=== PATIENT | female | born 1955 | race Caucasian/White ===

== ENCOUNTER → 2016-12-21 | Outpatient (CLI) | payer OTHER ==
[~2016-12-21] MED LIST: DOBUTamine DRIP for NUC MED 500 MG in DEXTROSE/WATER 1 250ML.BAG IV ONE
--- NOTE | 2016-12-21 14:42 | ECHOS ---
STRESS ECHOCARDIOGRAM DATE OF SERVICE: December 21, 2016. INDICATIONS: Fatigue. MEDICATIONS:: Metformin, Glyxambi, Lipitor, losartan, Celexa, omeprazole BASELINE HEART RATE: 69 BASELINE BLOOD PRESSURE: 200/83 MAXIMUM HEART RATE: 136 MAXIMUM BLOOD PRESSURE: 191/62 85% MPHR: 133 100% MPHR: 157 METS: MAXIMUM STAGE REACHED: 3 TOTAL EXERCISE TIME: 7:45 STRESS DATA: Physical examination showed a heart rate of 69, blood pressure is 200/83 mmHg. Baseline EKG shows sinus mechanism. Dobutamine infusion at dose of 10 mcg/minutes was initiated and decreased to 30 mcg per kg per minute per protocol. Max heart rate was 136, which is about 86% of maximum predicted heart rate. Blood pressure was 191/62 mmHg. Clinically, the patient did not have any symptoms of chest pain or discomfort. The EKG showed about 0.[address]-segment changes. ECHOCARDIOGRAM IMAGES: Echocardiogram images from parasternal long axis view, parasternal short-axis view, apical 4 chamber view, apical two-chamber view were obtained as a baseline images, at low dose dobutamine infusion at peak heart rate, as well as on recovery. The echocardiogram images showed overall good augmentation in the left ventricular systolic function without any evidence of wall motion abnormalities consistent with ischemia. CONCLUSION: 1. Mild EKG changes response to dobutamine. 2. Normal echocardiogram images in response to dobutamine. MMODL / IJN: [id number] /
== END ==
LOC: RADNMMAIN 09:46
PROVIDERS: ATTEND Family Medicine
DX: R53.83 Other fatigue (principal)
CPT/HCPCS: 93017; 93350

== ENCOUNTER → 2017-06-04 | Outpatient (CLI) | payer BC ==
--- NOTE | 2017-06-06 09:47 | MM ---
Reason for exam: screening (asymptomatic). Last mammogram was performed 2 years and 2 months ago. History: Patient is postmenopausal. Physical Findings: A clinical breast exam by your physician is recommended on an annual basis and results should be correlated with mammographic findings. MG Screening Mammo w CAD Bilateral CC and MLO view(s) were taken. Prior study comparison: April 19, 2015, bilateral MG 3d screening mammo w/cad. There are scattered fibroglandular densities. No significant changes when compared with prior studies. ASSESSMENT: Negative, BI-RAD 1 RECOMMENDATION: Routine screening mammogram of both breasts in 1 year.
== END | disposition home or self-care (01) ==
LOC: RADMAMWWP 09:47
PROVIDERS: ATTEND Family Medicine
DX: Z12.31 Encounter for screening mammogram for malignant neoplasm of breast (principal)
CPT/HCPCS: 77067

== ENCOUNTER → 2018-06-05 | Outpatient (CLI) | payer MEDICARE ==
--- NOTE | 2018-06-05 11:54 | MM ---
Reason for exam: screening (asymptomatic). Last mammogram was performed 1 year ago. History: Patient is postmenopausal. Physical Findings: A clinical breast exam by your physician is recommended on an annual basis and results should be correlated with mammographic findings. MG 3D Screening Mammo W/Cad Bilateral CC and MLO view(s) were taken. Prior study comparison: June 04, 2017, bilateral MG screening mammo w CAD. April 19, 2015, bilateral MG 3d screening mammo w/cad. There are scattered fibroglandular densities. There are benign appearing linear round calcifications bilaterally. There is no discrete abnormality. ASSESSMENT: Benign, BI-RAD 2 RECOMMENDATION: Routine screening mammogram of both breasts in 1 year.
== END | disposition home or self-care (01) ==
LOC: RADMAMWWP 07:57
PROVIDERS: ATTEND Family Medicine
DX: Z12.31 Encounter for screening mammogram for malignant neoplasm of breast (principal)
CPT/HCPCS: 77063; 77067

== ENCOUNTER → 2019-10-07 | Outpatient (CLI) | payer MEDICARE ==
--- NOTE | 2019-10-12 11:10 | MM ---
Reason for exam: screening (asymptomatic). Last mammogram was performed 1 year and 4 months ago. History: Patient is postmenopausal. Took hormonal contraceptives for 1 year. Physical Findings: A clinical breast exam by your physician is recommended on an annual basis and results should be correlated with mammographic findings. MG 3D Screening Mammo W/Cad Bilateral CC and MLO view(s) were taken. Prior study comparison: June 05, 2018, bilateral MG 3d screening mammo w/cad. June 04, 2017, bilateral MG screening mammo w CAD. There are scattered fibroglandular densities. There is chronic nodularity in the right breast. No significant changes when compared with prior studies. ASSESSMENT: Benign, BI-RAD 2 RECOMMENDATION: Routine screening mammogram of both breasts in 1 year.
== END | disposition home or self-care (01) ==
LOC: RADMAMWWP 07:50
PROVIDERS: ATTEND Family Medicine
DX: Z12.31 Encounter for screening mammogram for malignant neoplasm of breast (principal)
CPT/HCPCS: 77063; 77067

== ENCOUNTER → 2021-09-25 | Outpatient (CLI) | payer MEDICARE ==
--- NOTE | 2021-09-26 08:39 | MM ---
Reason for Exam: Screening (asymptomatic). Last mammogram was performed 1 year(s) and 11 month(s) ago. Patient History: Menarche at age 11. First Full-Term at age 16. Postmenopausal. Patient used Hormonal Contraceptives for 1 year. Risk Values: Alma 5 year model risk: 1.2%. NCI Lifetime model risk: 4.0%. Prior Study Comparison: 06/04/2017 Bilateral Screening Mammogram, [facility]. 06/05/2018 Bilateral Screening Mammogram, [facility]. 10/07/2019 Bilateral Screening Mammogram, [facility]. Tissue Density: There are scattered fibroglandular densities. Findings: Analyzed By CAD. There is no suspicious group of microcalcifications or new suspicious mass in either breast. Chronic nodularity in the right breast. No significant change from prior examination. Overall Assessment: Benign, BI-RAD 2 Management: Screening Mammogram of both breasts in 1 year. A clinical breast exam by your physician is recommended on an annual basis and results should be correlated with mammographic findings. Electronically signed and approved by: Catalino Martin D.O.
== END | disposition home or self-care (01) ==
LOC: RADMAMWWP 16:12
PROVIDERS: ATTEND Family Medicine
DX: Z12.31 Encounter for screening mammogram for malignant neoplasm of breast (principal); Z78.0 Asymptomatic menopausal state
CPT/HCPCS: 77063; 77067

== ENCOUNTER → 2021-10-18 | Outpatient (CLI) | payer MEDICARE ==
--- NOTE | 2021-10-18 18:48 | US ---
EXAMINATION TYPE: US carotid duplex BILAT DATE OF EXAM: 10/18/2021 COMPARISON: NONE CLINICAL HISTORY: 66-year-old female I25.10 atherosclerotic heart disease. HTN controlled with meds. TECHNIQUE: Carotid duplex ultrasound examination. Indirect Doppler criteria was utilized. FINDINGS: EXAM MEASUREMENTS: RIGHT: Peak Systolic Velocity (PSV) cm/sec ----- Right CCA: 64.4 ----- Right ICA: 104.0 ----- Right ECA: 93.0 ICA/CCA ratio: 1.6 RIGHT: End Diastole cm/sec ----- Right CCA: 12.8 ----- Right ICA: 25.9 ----- Right ECA: 0.0 LEFT: Peak Systolic Velocity (PSV) cm/sec ----- Left CCA: 73.8 ----- Left ICA: 120.5 ----- Left ECA: 113.4 ICA/CCA ratio: 1.6 LEFT: End Diastole cm/sec ----- Left CCA: 13.6 ----- Left ICA: 34.9 ----- Left ECA: 0.0 VERTEBRALS (direction of flow): Right Vertebral: Antegrade Left Vertebral: Antegrade Rhythm: Normal STAFF PHARMACIST HOSPITAL NOTES: No elevated velocities or significant stenosis. Small amount of plaque in left bu lb. IMPRESSION: No hemodynamically significant internal carotid artery stenosis on either side. Criteria for Assigning % of Stenosis / Diameter reduction (Estimation based on the indirect measurements of the internal carotid artery velocities (ICA PSV). 1. Normal (no stenosis)=ICA PSV < 125 cm/s: ratio < 2.0: ICA EDV<40 cm/s. 2. Less than 50% stenosis=ICA PSV < 125 cm/s: ratio < 2.0: ICA EDV<40 cm/s. 3. 50 to 69% stenosis=ICA PSV of 125 to 230 cm/s: ration 2.0 ? 4.0: ICA EDV 40-100 cm/s. 4. Greater than 70% stenosis to near occlusion= ICA PSV > 230 cm/s: ratio > 4.0: ICA EDV > 100 cm/s. 5. Near occlusion= ICA PSV velocities may be low or undetectable: variable ratio and ICA EDV. 6. Total occlusion=unable to detect flow.
== END | disposition home or self-care (01) ==
LOC: RADUSWWP 14:16
PROVIDERS: ATTEND Family Medicine
DX: I25.10 Atherosclerotic heart disease of native coronary artery without angina pectoris (principal); I10 Essential (primary) hypertension
CPT/HCPCS: 93880

== ENCOUNTER 2022-03-20 09:17 | Day surgery (SDC) | payer MEDICARE ==
[~2022-03-20 09:17] MED LIST changes: -DOBUTamine DRIP for NUC MED 500 MG in DEXTROSE/WATER 1 250ML.BAG IV ONE; +LACTATED RINGERS 1,000 ML IV SCH
[2022-03-20 09:45] VITALS: RESP 16; TEMP 97.3
[2022-03-20 09:57] LABS: Glucose,Whole Blood 158 mg/dL (70-110)
[2022-03-20] MEDS ORDERED: LIDOCAINE 1% (10MG/ML) FOR IV START INTRADERMA ONE (09:58)
[2022-03-20] MEDS ORDERED: PROPOFOL 10 MG/ML 20 ML VIAL IV ONE (10:32)
--- NOTE | 2022-03-20 10:46 | P.PCN ---
Date of Procedure: 03/20/22 Procedure(s) Performed: BRIEF HISTORY: Patient is a 67-year-old pleasant male scheduled for an elective colonoscopy as a part of evaluation of possible cologuard/screening for colon cancer PROCEDURE PERFORMED: Colonoscopy with biopsy. PREOPERATIVE DIAGNOSIS: Screening for colon cancer/positive cologuard. IV sedation per Anesthesia. PROCEDURE: After informed consent was obtained, the patient, was brought into the endoscopy unit. IV sedation was administered by Anesthesia under continuous monitoring. Digital rectal examination was normal. Initially the Olympus CF-160 flexible video colonoscope was then inserted in the rectum, gradually advanced into the cecum without any difficulty. Careful examination was performed as the scope was gradually being withdrawn. Ileocecal valve and the appendiceal orifice were visualized and appeared normal. Prep was excellent. Mucosa of the cecum, a normal. Ascending colon there was a 5 mm polyp that was removed by cold biopsy. Rest of the ascending colon, transverse colon, descending colon, sigmoid colon, and rectum appeared normal. Scattered sigmoid diverticulosis. Retroflexion was performed in the rectum and no lesions were seen. The patient tolerated the procedure well. IMPRESSION: 5 mm sessile ascending colon polyp status post cold biopsy Scattered sigmoid diverticulosis RECOMMENDATIONS: Findings of this examination were discussed with the patient as well as a family.. He was advised to follow with the biopsy results. If the biopsy with adenoma she can have a repeat colonoscopy in 5 years.
[2022-03-20 11:14] VITALS: BP 136/72; PULSE 57
== END 2022-03-20 11:34 | disposition home or self-care (01) ==
LOC: ORWHC2ENDO 09:17
PROVIDERS: ATTEND Internal Medicine Gastroenterology
DX: D12.2 Benign neoplasm of ascending colon (principal); K57.30 Diverticulosis of large intestine without perforation or abscess without bleeding; I10 Essential (primary) hypertension; E78.5 Hyperlipidemia, unspecified; E11.9 Type 2 diabetes mellitus without complications; Z79.84 Long term (current) use of oral hypoglycemic drugs; F32.A Depression, unspecified; Z79.02 Long term (current) use of antithrombotics/antiplatelets; Z79.891 Long term (current) use of opiate analgesic; Z79.899 Other long term (current) drug therapy
CPT/HCPCS: 45380; J2704; 88305

== ENCOUNTER → 2024-01-13 | Outpatient (CLI) | payer MEDICARE ==
--- NOTE | 2024-01-13 10:18 | CT ---
EXAMINATION TYPE: CT abdomen pelvis wo con CT DLP: 1018 mGycm, Automated exposure control for dose reduction was used. DATE OF EXAM: 01/13/2024 10:06 AM COMPARISON: None CLINICAL INDICATION:Female, 68 years old with history of R31.9 hematuria; hematuria TECHNIQUE: Standard CT of the abdomen and pelvis without IV or oral contrast. Lack of IV or oral co ntrast limits evaluation of solid and hollow organ viscera. Coronal and sagittal reformats were perfo rmed. FINDINGS: LOWER CHEST: Right lower lobe 4 mm pulmonary nodule (series 4, image 8). Coronary artery calcificatio ns. Elevation of the right hemidiaphragm. ABDOMEN LIVER: Unremarkable noncontrast appearance GALLBLADDER AND BILE DUCTS: Cholelithiasis with gallbladder wall calcification. No biliary ductal dil atation. PANCREAS: Unremarkable noncontrast appearance SPLEEN: Unremarkable noncontrast appearance ADRENAL GLANDS: Unremarkable noncontrast appearance of the right adrenal gland. Left adrenal gland 1. 2 cm hypodense nodule with Hounsfield unit of -11 consistent with a lipid rich adenoma. KIDNEYS AND URETERS: No evidence of hydronephrosis or renal calculus. No definitive ureteral calcific ation. No perinephric fat stranding. PELVIS BLADDER: Incompletely distended but grossly unremarkable. REPRODUCTIVE: Unremarkable noncontrast appearance ABDOMEN & PELVIS STOMACH AND BOWEL: Stomach and duodenum are unremarkable. No focal wall thickening or stranding infla mmatory changes. The appendix is within normal limits. No evidence of bowel obstruction. PERITONEUM: No evidence of pneumoperitoneum or free fluid. VASCULATURE: No evidence of aortic aneurysm. Pelvic phleboliths. MUSCULOSKELETAL: No acute osseous abnormalities. Dextrocurvature of the lumbar spine. Moderate multil evel degenerative disc disease. LYMPH NODES: No gross evidence for lymphadenopathy. SOFT TISSUE/ABDOMINAL WALL: Tiny fat filled umbilical hernia. IMPRESSION: 1. No evidence for obstructive uropathy or acute abdominal/pelvic process within the limitations of a noncontrast exam. 2. Cholelithiasis with gallbladder wall calcification consistent with porcelain gallbladder. Consider surgical consultation. 3. Left adrenal 1.2 cm lipid rich adenoma. 4. Right lower lobe 4 mm pulmonary nodule. In a low-risk patient, no follow-up is recommended. In a h igh-risk patient consider optional CT chest in 12 months. [facility], , 01/13/2024 10:15 AM
--- NOTE | 2024-01-19 15:56 | MM ---
Reason for Exam: Screening (asymptomatic). Last mammogram was performed 1 year(s) and 2 month(s) ago. Patient History: Menarche at age 11. First Full-Term at age 16. Postmenopausal. Patient used Hormonal Contraceptives for 1 year. Risk Values: Alma 5 year model risk: 1.2%. NCI Lifetime model risk: 3.7%. Prior Study Comparison: 10/07/2019 Bilateral Screening Mammogram, [facility]. 09/25/2021 Bilateral MG 3D screening mammo w/cad, [facility]. 11/27/2022 Bilateral MG 3D screening mammo w/cad, [facility]. Tissue Density: There are scattered areas of fibroglandular density. Findings: Analyzed By CAD. The pattern is symmetrical. No significant interval change. Benign calcifications are scattered bilaterally there is a nodular density in the subareolar right breast which may be changed from comparison. Additional evaluation recommended. Left breast:No suspicious groups of microcalcifications, spiculated or lobular masses, architectural distortion or other secondary signs of malignancy are mammographically apparent. Overall Assessment: Incomplete: need additional imaging evaluation, BI-RAD 0 Management: Diagnostic Mammogram of the right breast. Diagnostic Breast Ultrasound of the right breast. A negative mammogram report should not preclude additional follow up of suspicious palpable abnormalities. Patient should continue monthly self breast exam. A clinical breast exam by your physician is recommended on an annual basis and results should be correlated with mammographic findings. Note on Alma scores and lifetime risk: 1. A Alma score greater than 3% is considered moderate risk. If this is the case, consider specialist referral to assess eligibility for a risk reducing agent. 2. If overall lifetime risk for the development of breast cancer is 20% or higher, the patient may qualify for future screening with alternating mammogram and breast MRI. [facility], , 01/19/2024 3:53 PM. Electronically signed and approved by: Darwin Briceño D.O. Radiologis
== END | disposition home or self-care (01) ==
LOC: RADCTMAIN 09:50
PROVIDERS: ATTEND Family Medicine
DX: Z12.31 Encounter for screening mammogram for malignant neoplasm of breast (principal); R92.323 Mammographic fibroglandular density, bilateral breasts; R31.9 Hematuria, unspecified; K80.20 Calculus of gallbladder without cholecystitis without obstruction; E27.8 Other specified disorders of adrenal gland; R91.1 Solitary pulmonary nodule; Z78.0 Asymptomatic menopausal state
CPT/HCPCS: 74176; 77063; 77067

== ENCOUNTER → 2024-01-27 | Outpatient (CLI) | payer MEDICARE ==
--- NOTE | 2024-01-27 11:04 | MM ---
Reason for Exam: Additional evaluation requested from abnormal screening. Last screening mammogram was performed less than 1 month ago. Patient History: Menarche at age 11. First Full-Term at age 16. Postmenopausal. Patient used Hormonal Contraceptives for 1 year. Risk Values: Alma 5 year model risk: 1.2%. NCI Lifetime model risk: 3.7%. Prior Study Comparison: 06/04/2017 Bilateral Screening Mammogram, [facility]. 06/05/2018 Bilateral Screening Mammogram, [facility]. 10/07/2019 Bilateral Screening Mammogram, [facility]. 09/25/2021 Bilateral MG 3D screening mammo w/cad, [facility]. 11/27/2022 Bilateral MG 3D screening mammo w/cad, [facility]. 01/13/2024 Bilateral MG 3D screening mammo w/cad, [facility]. Tissue Density: Right: There are scattered areas of fibroglandular density. Findings: Analyzed By CAD. Tiny 3 mm circumscribed low density nodularity appears to have been present on 2021 exam. A tiny benign cyst or other benign etiology is suggested. Otherwise, no discrete abnormality. Overall Assessment: Benign, BI-RAD 2 Management: Screening Mammogram of both breasts in 1 year. Results were given to the patient verbally at the time of exam. Patient should continue monthly self-breast exams. A clinical breast exam by your physician is recommended on an annual basis. This exam should not preclude additional follow-up of suspicious palpable abnormalities. Note on Alma scores and lifetime risk: 1. A Alma score greater than 3% is considered moderate risk. If this is the case, consider specialist referral to assess eligibility for a risk reducing agent. 2. If overall lifetime risk for the development of breast cancer is 20% or higher, the patient may qualify for future screening with alternating mammogram and breast MRI. [facility], , 01/27/2024 11:02 AM. Electronically signed and approved by: Jennifer Charlton M.D. Radiologist
== END | disposition home or self-care (01) ==
LOC: RADMAMWWP 10:07
PROVIDERS: ATTEND Family Medicine
DX: R92.8 Other abnormal and inconclusive findings on diagnostic imaging of breast (principal); Z78.0 Asymptomatic menopausal state; R92.321 Mammographic fibroglandular density, right breast
CPT/HCPCS: 77065; G0279; 77061

== ENCOUNTER 2024-04-27 17:01 | Inpatient (IN) | payer MEDICARE ==
[2024-04-27 17:49] LABS: Basophils % (A) 0 %; Eosinophils # (A) 0.1 k/uL (0-0.7); Eosinophils % (A) 1 %; HCT 41.7 % (34.0-46.0); HGB 13.3 gm/dL (11.4-16.0); Lymphocytes # (A) 1.5 k/uL (1.0-4.8); Lymphocytes % (A) 13 %; MCH 29.4 pg (25.0-35.0); MCHC 31.9 g/dL (31.0-37.0); Mean Platelet Volume 7.3; Monocytes # (A) 0.7 k/uL (0-1.0); Monocytes % (A) 6 %; Neutrophils # (A) 9.5 k/uL (1.3-7.7); Neutrophils % (A) 80 %; Platelet Count 374 k/uL (150-450); RBC 4.54 m/uL (3.80-5.40); RDW 14.9 % (11.5-15.5)
--- NOTE | 2024-04-27 17:54 | ED ---
Abdominal Pain HPI - General Source: patient, family, RN notes reviewed Mode of arrival: wheelchair Limitations: no limitations - History of Present Illness MD Complaint: abdominal pain <Alfred Diego - Last Filed: 04/27/24 17:54> <Barbie Triplett - Last Filed: 04/29/24 13:09> - General Chief Complaint: Abdominal Pain Stated Complaint: nausea, abd cramps, referral Time Seen by Provider: 04/27/24 17:16 - History of Present Illness Initial Comments: Quick note: This is a 69-year-old female with history of DM presenting with family presenting with nausea/vomiting/diarrhea x 2 months. Family states patient was referred by Dr. Rodriguez for admission due to duration and progression of symptoms. Endorses having a cholecystectomy just prior to start of current symptoms. Endorses associated postprandial vomiting, lower abdominal pain, weakness with decreased appetite. (Alfred Diego) 69-year-old female with past medical history of diabetes, hypertension, hyperlipidemia who presents to the emergency department with nausea, vomiting and diarrhea. States that this has been going on persistently for a week. Patient has had some level of symptoms since February when she had her gallbladder taken out. Today she saw Dr. Rodriguez. She recognized that the patient was significantly dehydrated and needed to come to the hospital. Patient states that anything she tries to eat it comes right back up. She also has 6 episodes of loose watery stools per day. She does report to outpatient evaluation of her symptoms without definite diagnosis of the process. She denies any fevers. Does admit to lower abdominal cramping. No changes in her urination. No other alleviating, precipitating modifying factors (Barbie Triplett) - Related Data Home Medications Medication Instructions Recorded Confirmed Famotidine [Pepcid] 40 mg PO DAILY 04/28/24 04/28/24 Ondansetron [Zofran] 4 mg PO BID 04/28/24 04/28/24 Pioglitazone [Actos] 30 mg PO DAILY 04/28/24 04/28/24 Promethazine HCl 12.5 mg PO QID PRN 04/28/24 04/28/24 Rosuvastatin Calcium [Crestor] 5 mg PO DAILY 04/28/24 04/28/24 hydroCHLOROthiazide [Hydrodiuril] 25 mg PO DAILY 04/28/24 04/28/24 sitaGLIPtin PHOS/metFORMIN HCL 1 tab PO BID 04/28/24 04/28/24 [Janumet 50-1,000 mg Tablet] Allergies Allergy/AdvReac Type Severity Reaction Status Date / Time No Known Allergies Allergy Verified 04/28/24 09:01 Review of Systems ROS Other: All systems not noted in ROS Statement are negative. <Alfred Diego - Last Filed: 04/27/24 17:54> ROS Other: All systems not noted in ROS Statement are negative. <IoanaBarbie Bee - Last Filed: 04/29/24 13:09> ROS Statement: Those systems with pertinent positive or pertinent negative responses have been documented in the HPI. Past Medical History Past Medical History: Diabetes Mellitus, Hyperlipidemia, Hypertension History of Any Multi-Drug Resistant Organisms: None Reported Past Surgical History: Cholecystectomy, Tonsillectomy Additional Past Surgical History / Comment(s): d & c Past Anesthesia/Blood Transfusion Reactions: No Reported Reaction Past Psychological History: Depression Smoking Status: Never smoker <Alfred Diego - Last Filed: 04/27/24 17:54> General Exam Limitations: no limitations <Alfred Diego - Last Filed: 04/27/24 17:54> General appearance: alert, in no apparent distress Head exam: Present: atraumatic, normocephalic, normal inspection Eye exam: Present: normal appearance, PERRL, EOMI. Absent: scleral icterus, conjunctival injection, periorbital swelling ENT exam: Present: normal exam, mucous membranes moist Neck exam: Present: normal inspection. Absent: tenderness, meningismus, lymphad enopathy Respiratory exam: Present: normal lung sounds bilaterally. Absent: respiratory distress, wheezes, rales, rhonchi, stridor Cardiovascular Exam: Present: regular rate, normal rhythm, normal heart sounds. Absent: systolic murmur, diastolic murmur, rubs, gallop, clicks GI/Abdominal exam: Present: soft, tenderness (mild lower abd tenderness), normal bowel sounds. Absent: distended, guarding, rebound, rigid Extremities exam: Present: normal inspection, full ROM, normal capillary refill. Absent: tenderness, pedal edema, joint swelling, calf tenderness Back exam: Present: normal inspection Neurological exam: Present: alert, oriented X3, CN II-XII intact Psychiatric exam: Present: normal affect, normal mood Skin exam: Present: warm, dry, intact, normal color. Absent: rash <Barbie Triplett - Last Filed: 04/29/24 13:09> - General Exam Comments Initial Comments: Visual Physical Exam Vital signs reviewed General: Well-appearing, nontoxic, no acute distress. Head: Normocephalic, atraumatic Eyes: PERRLA, EOMI ENT: Airway patent Chest: Nonlabored breathing Skin: No visual rash, normal skin tone Neuro: Alert and oriented 3 Musculoskeletal: No gross abnormalities (Alfred Diego) Course Vital Signs 04/27/24 04/27/24 04/27/24 17:18 20:34 21:50 Temperature 97.8 F Pulse Rate 85 90 90 Respiratory 20 18 20 Rate Blood Pressure 142/79 146/76 133/68 O2 Sat by Pulse 99 98 97 Oximetry 04/27/24 04/28/24 04/28/24 23:41 01:00 05:26 Temperature Pulse Rate 84 82 68 Respiratory 18 18 18 Rate Blood Pressure 125/67 143/57 150/68 O2 Sat by Pulse 97 96 98 Oximetry 04/28/24 04/28/24 04/28/24 09:32 15:57 17:36 Temperature Pulse Rate 65 70 70 Respiratory 14 18 18 Rate Blood Pressure 150/74 160/78 142/58 O2 Sat by Pulse 98 100 100 Oximetry Medical Decision Making - Lab Data Result diagrams: 04/27/24 17:22 <Alfred Diego - Last Filed: 04/27/24 17:54> - Lab Data Result diagrams: 04/29/24 03:45 04/29/24 03:45 <Barbie Triplett - Last Filed: 04/29/24 13:09> - Medical Decision Making I completed the quick note portion of this chart signed ROSETTA Tate (Alfred Diego) Was pt. sent in by a medical professional or institution ([facility], HOT IRON WORKER, urgent care, hospital, or [facility]...) When possible be specific @ -Patient was sent in by Dr. Rodriguez Did you speak to anyone other than the patient for history (EMS, parent, family, police, friend...)? What history was obtained from this source @ -Spoke with the patient's daughters for history Did you review nursing and triage notes (agree or disagree)? Why? @ -I reviewed and agree with nursing and triage notes Were old charts reviewed (outside hosp., previous admission, EMS record, old EKG, old radiological studies, urgent care reports/EKG's, [facility] records)? Report findings @ -No old charts were reviewed Differential Diagnosis (chest pain, altered mental status, abdominal pain women, abdominal pain men, vaginal bleeding, weakness, fever, dyspnea, syncope, headache, dizziness, GI bleed, back pain, seizure, CVA, palpatations, mental health, musculoskeletal)? @ -Differential Abdominal Pain Women: Appendicitis, Cholecystitis, diverticulosis, ischemic bowel, pancreatitis, hepatitis, UTI, gastroenteritis, AAA, incarcerated hernia, bowel obstruction, constipation, inflammatory bowel, hepatitis, peptic ulcer disease, splenic infarction, perforated viscus, vulvitis, ovarian torsion, PID, kidney stone, placenta abruption, this is not meant to be an all-inclusive list EKG interpreted by me (3pts min.). @ -Yes and demonstrates sinus rhythm with a rate of 82. QRS 82. QTc of 370. Mild ST depression lead II X-rays interpreted by me (1pt min.). @ -None done CT interpreted by me (1pt min.). @ -Yes which demonstrates gastroenteritis U/S interpreted by me (1pt. min.). @ -None done What testing was considered but not performed or refused? (CT, X-rays, U/S, la bs)? Why? @ -None What meds were considered but not given or refused? Why? @ -None Did you discuss the management of the patient with other professionals (professionals i.e. , PA, HOT IRON WORKER, lab, RT, psych nurse, social service agency director, oven press tender, teacher, licensed mortgage loan officer, casework manager)? Give summary @ -Spoke with Dr. Rayo for admission Was smoking cessation discussed for >3mins.? @ -No Was critical care preformed (if so, how long)? @ -No Were there social determinants of health that impacted care today? How? (Homelessness, low income, unemployed, alcoholism, drug addiction, transportation, low edu. Level, literacy, decrease access to med. care, halfway, rehab)? @ -No Was there de-escalation of care discussed even if they declined (Discuss DNR or withdrawal of care, Hospice)? DNR status @ -No What co-morbidities impacted this encounter? (DM, HTN, Smoking, COPD, CAD, Cancer, CVA, ARF, Chemo, Hep., AIDS, mental health diagnosis, sleep apnea, morbid obesity)? @ -Porcelain gallbladder history Was patient admitted / discharged? Hospital course, mention meds given and route, prescriptions, significant lab abnormalities, going to OR and other pertinent info. @ -Upon arrival patient seen and evaluated in bed 24. Thorough history and physical exam was performed. IV access is established. Patient is initiated on fluids, Pepcid and Zofran. Laboratory studies are conducted. CT is performed as patient has not had 1 postop in her records. I did discuss results with the patient. Due to her significant dehydration and hypokalemia I did recommend admission for which the patient was agreeable. Spoke with Dr. Rayo for the admission Undiagnosed new problem with uncertain prognosis? @ -No Drug Therapy requiring intensive monitoring for toxicity (Heparin, Nitro, Insulin, Cardizem)? @ -No Were any procedures done? @ -No Diagnosis/symptom? @ -Acute exacerbation of chronic nausea, vomiting, acute abdominal pain, status post gallbladder removal, acute hypokalemia, acute hypomagnesemia Acute, or Chronic, or Acute on Chronic? @ -Acute Uncomplicated (without systemic symptoms) or Complicated (systemic symptoms)? @ -Complicated Side effects of treatment? @ -No Exacerbation, Progression, or Severe Exacerbation? @ -No Poses a threat to life or bodily function? How? (Chest pain, [place], [place], pneumonia, PE, COPD, DKA, ARF, appy, cholecystitis, CVA, Diverticulitis, Homicidal, Suicidal, threat to staff... and all critical care pts) @ -No (Barbie Triplett) - Lab Data Lab Results 04/27/24 04/27/24 04/27/24 Range/Units 17:22 17:22 17:22 WBC 12.0 H (3.8-10.6) k/uL RBC 4.54 (3.80-5.40) m/uL Hgb 13.3 (11.4-16.0) gm/dL Hct 41.7 (34.0-46.0) % MCV 92.0 (80.0-100.0) fL MCH 29.4 (25.0-35.0) pg MCHC 31.9 (31.0-37.0) g/dL RDW 14.9 (11.5-15.5) % Plt Count 374 (150-450) k/uL MPV 7.3 Neutrophils % 80 % Lymphocytes % 13 % Monocytes % 6 % Eosinophils % 1 % Basophils % 0 % Neutrophils # 9.5 H (1.3-7.7) k/uL Lymphocytes # 1.5 (1.0-4.8) k/uL Monocytes # 0.7 (0-1.0) k/uL Eosinophils # 0.1 (0-0.7) k/uL Basophils # 0.0 (0-0.2) k/uL PT 11.1 (10.0-12.5) sec INR 1.0 (<1.2) APTT 20.0 L (22.0-30.0) sec Sodium 135 L (137-145) mmol/L Potassium 2.4 L* (3.5-5.1) mmol/L Chloride 96 L (98-107) mmol/L Carbon Dioxide 19 L (22-30) mmol/L Anion Gap 20 mmol/L BUN 11 (7-17) mg/dL Creatinine 0.63 (0.52-1.04) mg/dL Est GFR (CKD-EPI)AfAm >90 (>60 ml/min/1.73 sqM) Est GFR (CKD-EPI)NonAf >90 (>60 ml/min/1.73 sqM) Glucose 193 H (74-99) mg/dL Plasma Lactic Acid Tad (0.7-2.0) mmol/L Calcium 9.6 (8.4-10.2) mg/dL Magnesium (1.6-2.3) mg/dL Total Bilirubin 1.0 (0.2-1.3) mg/dL AST 20 (14-36) U/L ALT 11 (4-34) U/L Alkaline Phosphatase 75 (38-126) U/L Total Protein 6.3 (6.3-8.2) g/dL Albumin 3.7 (3.5-5.0) g/dL Amylase 51 (30-110) U/L Lipase 42 (23-300) U/L Urine Color Urine Appearance (Clear) Urine pH (5.0-8.0) Ur Specific [place] (1.001-1.035) Urine Protein (Negative) Urine Glucose (UA) (Negative) Urine Ketones (Negative) Urine Blood (Negative) Urine Nitrite (Negative) Urine Bilirubin (Negative) Urine Urobilinogen (<2.0) mg/dL Ur Leukocyte Esterase (Negative) Urine RBC (0-5) /hpf Urine WBC (0-5) /hpf Ur Squamous Epith Cells (0-4) /hpf Urine Bacteria (None) /hpf Hyaline Casts (0-2) /lpf Urine Mucus (None) /hpf 04/27/24 04/27/24 04/27/24 Range/Units 17:22 17:22 22:08 WBC (3.8-10.6) k/uL RBC (3.80-5.40) m/uL Hgb (11.4-16.0) gm/dL Hct (34.0-46.0) % MCV (80.0-100.0) fL MCH (25.0-35.0) pg MCHC (31.0-37.0) g/dL RDW (11.5-15.5) % Plt Count (150-450) k/uL MPV Neutrophils % % Lymphocytes % % Monocytes % % Eosinophils % % Basophils % % Neutrophils # (1.3-7.7) k/uL Lymphocytes # (1.0-4.8) k/uL Monocytes # (0-1.0) k/uL Eosinophils # (0-0.7) k/uL Basophils # (0-0.2) k/uL PT (10.0-12.5) sec INR (<1.2) APTT (22.0-30.0) sec Sodium (137-145) mmol/L Potassium (3.5-5.1) mmol/L Chloride (98-107) mmol/L Carbon Dioxide (22-30) mmol/L Anion Gap mmol/L BUN (7-17) mg/dL Creatinine (0.52-1.04) mg/dL Est GFR (CKD-EPI)AfAm (>60 ml/min/1.73 sqM) Est GFR (CKD-EPI)NonAf (>60 ml/min/1.73 sqM) Glucose (74-99) mg/dL Plasma Lactic Acid Tad 1.8 (0.7-2.0) mmol/L Calcium (8.4-10.2) mg/dL Magnesium 1.3 L (1.6-2.3) mg/dL Total Bilirubin (0.2-1.3) mg/dL AST (14-36) U/L ALT (4-34) U/L Alkaline Phosphatase (38-126) U/L Total Protein (6.3-8.2) g/dL Albumin (3.5-5.0) g/dL Amylase (30-110) U/L Lipase (23-300) U/L Urine Color Yellow Urine Appearance Clear (Clear) Urine pH 6.0 (5.0-8.0) Ur Specific [place] >1.050 H (1.001-1.035) Urine Protein Trace H (Negative) Urine Glucose (UA) 1+ H (Negative) Urine Ketones 4+ H (Negative) Urine Blood Negative (Negative) Urine Nitrite Negative (Negative) Urine Bilirubin 1+ H (Negative) Urine Urobilinogen 2.0 (<2.0) mg/dL Ur Leukocyte Esterase Small H (Negative) Urine RBC 3 (0-5) /hpf Urine WBC 23 H (0-5) /hpf Ur Squamous Epith Cells 4 (0-4) /hpf Urine Bacteria Many H (None) /hpf Hyaline Casts 16 H (0-2) /lpf Urine Mucus Occasional H (None) /hpf Disposition <Alfred Diego - Last Filed: 04/27/24 17:54> Is patient prescribed a controlled substance at d/c from ED?: No Time of Disposition: 22:22 Decision to Admit Reason: Admit from EC Decision Date: 04/27/24 Decision Time: 22:22 <Barbie Triplett - Last Filed: 04/29/24 13:09> Clinical Impression: Abdominal pain, Nausea and vomiting, Hypokalemia, Hypomagnesemia Disposition: ADMITTED IP TO THIS [facility] Condition: Stable
[2024-04-27 17:58] LABS: ALT 11 U/L (4-34); AST 20 U/L (14-36); African American GFR (CKD) >90 (>60 ml/min/1.73 sqM); Albumin 3.7 g/dL (3.5-5.0); Alkaline Phosphatase 75 U/L (38-126); Amylase 51 U/L (30-110); Anion Gap 20 mmol/L; Blood Urea Nitrogen 11 mg/dL (7-17); Calcium 9.6 mg/dL (8.4-10.2); Carbon Dioxide 19 mmol/L (22-30); Chloride 96 mmol/L (98-107); Glucose 193 mg/dL (74-99); Lipase 42 U/L (23-300); Non-African American GFR(CKD) >90 (>60 ml/min/1.73 sqM); Sodium 135 mmol/L (137-145); Total Protein 6.3 g/dL (6.3-8.2)
[2024-04-27 18:05] LABS: Potassium 2.4 mmol/L (3.5-5.1)
[2024-04-27 18:49] LABS: Prothrombin Time 11.1 sec (10.0-12.5)
[2024-04-27] MEDS: SODIUM CHLORIDE 0.9% 1,000 ML IV SCH (20:32)
[2024-04-27] MEDS: POTASSIUM CHLORIDE ER 20 MEQ TAB.ER PO STA (20:32)
[2024-04-27] MEDS: ONDANSETRON 4 MG/2 ML VIAL IVP STA (20:32)
[2024-04-27] MEDS: SODIUM CHLORIDE 0.9% 1,000 ML IV ONE (20:32)
[2024-04-27] MEDS: POTASSIUM CHLORIDE 20 MEQ in WATER FOR INJECTION 1 100ML.BAG IVPB STA (20:32)
[2024-04-27] MEDS: FAMOTIDINE 20 MG/2 ML VIAL IV SCH (20:32)
[2024-04-27] MEDS: MAGNESIUM SULFATE-D5W PMX 1 GM in DEXTROSE/WATER 1 100ML.BAG IVPB SCH (21:50)
[2024-04-27] MEDS ORDERED: NALOXONE 0.4 MG/ML 1 ML VIAL IV PRN (22:22)
[2024-04-27 22:35] LABS: Appearance,Urine Clear (Clear); Bacteria,Urine Many /hpf; Bilirubin,Urine 1+ (Negative); Blood,Urine Negative (Negative); Color,Urine Yellow; Glucose,Urine (UA) 1+ (Negative); Hyaline Casts,Urine 16 /lpf (0-2); Ketones,Urine 4+ (Negative); Leukocyte Esterase,Urine Small (Negative); Mucus,Urine Occasional /hpf; Nitrite,Urine Negative (Negative); Protein,Urine Trace (Negative); RBC,Urine 3 /hpf (0-5); Specific Gravity,Urine >1.050 (1.001-1.035); Squamous Epithelial Cell,Urine 4 /hpf (0-4); WBC,Urine 23 /hpf (0-5)
--- NOTE | 2024-04-27 22:38 | CT ---
INDICATION: Patient age:Female; 69 years old; Reason for study: abd pain, vomitin; PHH. COMPARISON: CT abdomen/pelvis 01/13/2024. TECHNIQUE: Standard CT of the abdomen and pelvis following the administration of 100 cc of Isovue-3 00 IV contrast material. Coronal and sagittal reformats were performed. One or more CT dose reduction strategies were utilized during this examination. Total DLP administered was 922.7mGycm. FINDINGS: LOWER CHEST: Right lower lobe 4 mm pulmonary nodule redemonstrated. ABDOMEN LIVER: Mild intrahepatic biliary ductal dilatation similar to prior.. GALLBLADDER AND BILE DUCTS: Gallbladder is not visualized. The common bile duct is prominent measurin g up to 10 mm. PANCREAS: Unremarkable. SPLEEN: Unremarkable. ADRENAL GLANDS: Indeterminate left adrenal gland nodule measuring at least 11 mm. Right adrenal gland is unremarkable. KIDNEYS AND URETERS: No evidence of hydronephrosis or renal calculus. The ureters are unremarkable. PELVIS URINARY BLADDER: Incompletely distended but grossly unremarkable. REPRODUCTIVE: No pelvic masses calcifications involving the uterus are seen likely related to underly ing fibroid changes. ABDOMEN & PELVIS STOMACH AND BOWEL: Stomach is incompletely distended and grossly unremarkable. There is mild wall thi ckening of the distal stomach and proximal small bowel. The small bowel is of normal caliber. There i s wall thickening of the rectosigmoid colon in addition to segment of the ascending and transverse co lavern. No evidence of bowel obstruction. PERITONEUM: No evidence of pneumoperitoneum or free fluid. VASCULATURE: No aneurysmal changes. MUSCULOSKELETAL: Degenerative changes the visualized spinal no acute osseous abnormalities. LYMPH NODES: Unremarkable. SOFT TISSUE/ABDOMINAL WALL: Tiny fat filled umbilical hernia IMPRESSION: 1. Findings suggestive of acute gastritis/enteritis in addition to colitis likely related to infecti ous/inflammatory etiology. 2. Nonspecific intrahepatic and extrahepatic biliary ductal dilatation. The gallbladder not visualize d. Findings could relate to postcholecystectomy state. Correlate with clinical evaluation. This can b e further characterized with a nonemergent outpatient MRI/MRCP. 3. Indeterminate left adrenal gland nodule. Further characterization is recommended with a nonemergen t outpatient MRI/CT abdomen adrenal mass protocol. [facility], , 04/27/2024 10:36 PM
[2024-04-28 01:32] LABS: African American GFR (CKD) >90 (>60 ml/min/1.73 sqM); Anion Gap 14 mmol/L; Blood Urea Nitrogen 9 mg/dL (7-17); Calcium 8.3 mg/dL (8.4-10.2); Carbon Dioxide 20 mmol/L (22-30); Chloride 100 mmol/L (98-107); Glucose 138 mg/dL (74-99); Non-African American GFR(CKD) >90 (>60 ml/min/1.73 sqM); Sodium 134 mmol/L (137-145)
[2024-04-28 01:34] LABS: Potassium 2.6 mmol/L (3.5-5.1)
--- NOTE | 2024-04-28 01:39 | P.HPIM ---
History of Present Illness H&P Date: 04/27/24 Patient is a 69-year-old female with past medical history significant for [id number] diabetes mellitus, hypertension, hyperlipidemia presents to the emergency department with nausea/vomiting, diarrhea, decreased appetite since December gradually worsening over the last few weeks. 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 She has been unable to tolerate oral intake as everything upsets her stomach. She also reports intermittent cramping pain throughout the abdom en. She has had a 50 pound weight loss since January 2024. She reports that she had a CT abdomen performed at [facility] about 2 weeks ago which showed "inflammation of the intestines" as well as an EGD with Dr. Rodriguez about a week ago. She was in Dr. Rodriguez's office today who strongly recommended that she come to the ED due to dehydration and inability to tolerate oral intake. Of note she says that January 2023 she began taking Ozempic for total of 2 months, initially prescribed 5 mg and decreased to 2.5 mg but she was unable tolerate the medication. She states that she has not fully felt like herself since then. She denies fever, chest pain, dyspnea, hematuria, hematochezia/melena, h ematemesis. Initial vitals: BP 142/79, WA 85 bpm, 97.8 F, 99% on room air Initial labs: WBC 12, hemoglobin 13.3, platelets 374, PTT 20, sodium 135, potassium 2.4, chloride 96, CO2 19, BUN 11, creatinine 0.63, glucose 193, magnesium 1.3 Initial EKG: Supraventricular rhythm with ventricular rate 82 bpm, QTc 370 ms, mild ST-depression in lead II Initial CT abdomen/pelvis: Findings suggestive of acute gastritis/enteritis in addition to colitis likely related to infectious/inflammatory etiology; nonspecific intrahepatic and extrahepatic biliary ductal dilatation; intermediate left adrenal gland nodule Urinalysis: Trace protein, 1+ glucose, 4+ ketones, 1+ bilirubin, bacteria, 23 WBC, hyaline casts ED documentation reviewed. Given magnesium 1 g x 2, potassium chloride 60 mEq, 0.9% saline 1 L x 1 Review of systems: Pertinent positives and negatives as discussed in HPI, a complete review of systems was performed and all other systems are negative. Social history: Tobacco: Never smoker Alcohol: None reported Recreational drugs: None reported Travel: None reported Sick contacts: None reported Physical examination: Vital signs reviewed General: Nontoxic, no distress, appears stated age, ill-appearing Derm: Warm, dry, intact, no cyanosis Head: Atraumatic, normocephalic, symmetric Eyes: EOMI, anicteric sclera, PERRL Ears: Normal appearing, no external lesions, hearing intact Nose: Normal appearing, no external lesions Mouth: No lip lesion, mucus membranes moist, no tonsilar hypertrophy or exudate Neck: Supple, without lesions, trachea midline; tenderness to palpation right submandibular gland Cardiovascular: S1-S2 regular, grade 3/6 systolic murmur present, no pedal edema Lungs: CTA bilateral, no wheezes, no rhonchi, no rales, no accessory muscle use Abdominal: Soft, mild tenderness to palpation left of umbilicus, bowel sounds hypoactive Extremities: Muscle strength 4/5 in all extremities, radial pulses 2+ bilateral, posterior tibial pulses 1+ bilateral Neuro: Alert, oriented x 4, gross neurological examination did not reveal any focal deficits. Cranial nerves II to XII grossly intact. Psych: Sad affect and mood Assessment and Plan: Patient is a 69-year-old female with a past medical history significant for [id number]-hstlcrmud diabetes mellitus, hypertension, hyperlipidemia admitted for intractable nausea/vomiting and hypokalemia. Active #. Severe hypokalemia Potassium chloride 60 mEq (40 mEq PO and 20 mEq IV) given in ED Repeat BMP and magnesium, monitor every 4 hours Continue to replete potassium as needed Continue telemetry monitoring #. Persistent nausea/vomiting Zofran 4 mg IV every 8 hours as needed for nausea GI consulted General surgery consulted Cloth Cutter consulted for nutritional support as patient cannot tolerate oral intake at this time Chronic #. Hypertension Continue home medications once confirmed #. Depression Continue Cymbalta 30 mg p.o. at bedtime #. Hyperlipidemia Continue Lipitor 20 mg p.o. at bedtime DVT prophylaxis: Lovenox 40 mg subcutaneous daily GI prophylaxis: Protonix 40 mg IV qd The patient is admitted with an anticipated less than 2 midnight stay for evaluation of hypokalemia and persistent nausea/vomiting. CODE STATUS: Full Code Anticipated discharge place: Pending clinical course Past Medical History Past Medical History: Diabetes Mellitus, Hyperlipidemia, Hypertension History of Any Multi-Drug Resistant Organisms: None Reported Past Surgical History: Cholecystectomy, Tonsillectomy Additional Past Surgical History / Comment(s): d & c Past Anesthesia/Blood Transfusion Reactions: No Reported Reaction Past Psychological History: Depression Smoking Status: Never smoker Medications and Allergies Home Medications Medication Instructions Recorded Confirmed Type Atorvastatin [Lipitor] 20 mg PO HS 03/15/22 03/20/22 History DULoxetine HCL [Cymbalta] 30 mg PO HS 03/15/22 03/20/22 History Losartan [Cozaar] 1 tab PO HS 03/15/22 03/20/22 History Pioglitazone [Actos] 1 tab PO HS 03/15/22 03/20/22 History hydroCHLOROthiazide 25 mg PO HS 03/15/22 03/20/22 History metFORMIN HCL 1,000 mg PO HS 03/15/22 03/20/22 History Allergies Allergy/AdvReac Type Severity Reaction Status Date / Time No Known Allergies Allergy Unverified 03/20/22 09:42 Physical Exam Vitals: Vital Signs Temp Pulse Resp BP Pulse Ox 04/27/24 21:50 90 20 133/68 97 04/27/24 20:34 90 18 146/76 98 04/27/24 17:18 97.8 F 85 20 142/79 99 Intake and Output 04/27/24 04/27/24 04/27/24 06:59 14:59 22:59 Other: Weight 63.503 kg Results CBC & Chem 7: 04/27/24 17:22 04/28/24 00:54 Labs: Abnormal Lab Results - Last 24 Hours (Table) 04/27/24 04/27/24 04/27/24 Range/Units 17:22 17:22 17:22 WBC 12.0 H (3.8-10.6) k/uL Neutrophils # 9.5 H (1.3-7.7) k/uL APTT 20.0 L (22.0-30.0) sec Sodium 135 L (137-145) mmol/L Potassium 2.4 L* (3.5-5.1) mmol/L Chloride 96 L (98-107) mmol/L Carbon Dioxide 19 L (22-30) mmol/L Glucose 193 H (74-99) mg/dL Magnesium (1.6-2.3) mg/dL 02/24/25 Range/Units 17:22 WBC (3.8-10.6) k/uL Neutrophils # (1.3-7.7) k/uL APTT (22.0-30.0) sec Sodium (137-145) mmol/L Potassium (3.5-5.1) mmol/L Chloride (98-107) mmol/L Carbon Dioxide (22-30) mmol/L Glucose (74-99) mg/dL Magnesium 1.3 L (1.6-2.3) mg/dL
[2024-04-28] MEDS: POTASSIUM CHLORIDE 10 MEQ in WATER FOR INJECTION 1 100ML.BAG IVPB SCH (03:34)
[2024-04-28] MEDS: POTASSIUM CHLORIDE ER 20 MEQ TAB.ER PO ONE (03:34)
[2024-04-28 05:25] LABS: Basophils % (A) 0 %; Eosinophils # (A) 0.1 k/uL (0-0.7); Eosinophils % (A) 1 %; HCT 34.8 % (34.0-46.0); HGB 11.4 gm/dL (11.4-16.0); Lymphocytes # (A) 1.5 k/uL (1.0-4.8); Lymphocytes % (A) 20 %; MCHC 32.6 g/dL (31.0-37.0); MCV 92.1 fL (80.0-100.0); Mean Platelet Volume 6.6; Monocytes # (A) 0.7 k/uL (0-1.0); Monocytes % (A) 8 %; Neutrophils # (A) 5.4 k/uL (1.3-7.7); Neutrophils % (A) 68 %; Platelet Count 281 k/uL (150-450); RBC 3.78 m/uL (3.80-5.40); RDW 14.9 % (11.5-15.5); WBC 7.9 k/uL (3.8-10.6)
[2024-04-28 05:49] LABS: African American GFR (CKD) >90 (>60 ml/min/1.73 sqM); Anion Gap 10 mmol/L; Blood Urea Nitrogen 8 mg/dL (7-17); Calcium 8.4 mg/dL (8.4-10.2); Carbon Dioxide 21 mmol/L (22-30); Chloride 103 mmol/L (98-107); Glucose 128 mg/dL (74-99); Non-African American GFR(CKD) >90 (>60 ml/min/1.73 sqM); Potassium 2.8 mmol/L (3.5-5.1); Sodium 134 mmol/L (137-145)
[2024-04-28] MEDS: PANTOPRAZOLE 40 MG/10 ML VIAL IVP SCH (09:28)
[2024-04-28] MEDS: ENOXAPARIN 40 MG/0.4 ML SYRINGE SQ SCH (09:29)
[2024-04-28] MEDS ORDERED: DEXTROSE 50% SYRINGE 50 ML IVP PRN ×2 (09:30)
[2024-04-28 11:55] LABS: Glucose,Whole Blood 116 mg/dL (70-110)
[2024-04-28] MEDS: INSULIN LISPRO (HumaLOG) 100 UNIT/ML 10 mL VL SQ SCH (11:55)
[2024-04-28] MEDS: POTASSIUM CHLORIDE ER 10 MEQ TAB.ER.PRT PO STA (12:10)
[2024-04-28] MEDS: POTASSIUM CHLORIDE ER 20 MEQ TAB.ER PO STA (12:10)
--- NOTE | 2024-04-28 12:43 | P.GSCN ---
History of Present Illness Consult date: 04/28/24 History of present illness: CHIEF COMPLAINT: Nausea vomiting and diarrhea HISTORY OF PRESENT ILLNESS: This is a 69-year-old female who presented to the hospital with complaints of nausea, vomiting and diarrhea for the past 2 months. Patient reports that she had a EGD completed with Dr. Veliz about 2 weeks ago and had reported gastritis. She reports her last colonoscopy was about 2 years ago and had a colon polyp. She does have a prior history of a cholecystectomy. She does report recent antibiotic use for UTI. She denies any sick contacts. Denies any fever chills or sweats. She reports a decreased appetite. CT scan abdomen pelvis had reported finding suggestive of acute gastritis, enteritis in addition to colitis likely related to infectious inflammatory etiology. Patient denies any prior history of colitis. Patient seen and examined with Dr. Mart PAST MEDICAL HISTORY: Diabetes Mellitus, Hyperlipidemia, Hypertension PAST SURGICAL HISTORY: Cholecystectomy, tonsillectomy D&C MEDICATIONS: See below ALLERGIES: See below SOCIAL HISTORY: No illicit drug use. REVIEW OF SYSTEMS: CONSTITUTIONAL: Denies fever or chills. HEENT: Denies blurred vision, vision changes, or eye pain. Denies hemoptysis CARDIOVASCULAR: Denies chest pain or pressure. RESPIRATORY: No shortness of breath. GASTROINTESTINAL: See HPI for pertinent findings HEMATOLOGIC: Denies bleeding disorders. GENITOURINARY: Denies any blood in urine or increased urinary frequency. SKIN: Denies pruitis. Denies rash. PHYSICAL EXAM: VITAL SIGNS: Reviewed GENERAL: Well-developed in no acute distress. ABDOMEN: Soft. Nondistended. Mild tenderness with palpation to the mid abdomen. No rebound or guarding noted. NEUROLOGIC: Alert and oriented. Cranial nerves II through XII grossly intact. LABORATORY DATA: WBC 12.0 down to 7.9 Hgb 11.4 platelets 281 Sodium 134 potassium 2.4 up to 3.1 creatinine 0.59 Magnesium 1.3 up to 2.0 lactic acid 1.8 LFTs normal IMAGING: CT scan abdomen pelvis reports findings suggestive of acute gastritis/enteritis in addition to colitis likely related to infectious inflammatory etiology. Nonspecific intrahepatic and extrahepatic biliary ductal dilatation. Gallbladder not visualized. Findings could relate to postcholecystectomy state. Indeterminant left adrenal gland nodule. ASSESSMENT: 1. Abdominal pain with nausea vomiting and diarrhea. Possible gastroenteritis and colitis noted on CT scan 2. Hypokalemia 3. Hypomagnesemia 4. Recent antibiotic use for UTI 5. History of recent laparoscopic cholecystectomy February 20, 2025 PLAN: -No surgical intervention planned -Will await further GI recommendations -Continue to correct electrolytes -Continue IV fluids -Agree with stool cultures -Continue supportive care Physician Workforce Consultant note has been reviewed by physician. Signing provider agrees with the documented findings, assessment, and plan of care. Past Medical History Past Medical History: Diabetes Mellitus, Hyperlipidemia, Hypertension History of Any Multi-Drug Resistant Organisms: None Reported Past Surgical History: Cholecystectomy, Tonsillectomy Additional Past Surgical History / Comment(s): d & c Past Anesthesia/Blood Transfusion Reactions: No Reported Reaction Past Psychological History: Depression Smoking Status: Never smoker Medications and Allergies Home Medications Medication Instructions Recorded Confirmed Type Famotidine [Pepcid] 40 mg PO DAILY 04/28/24 04/28/24 History Ondansetron [Zofran] 4 mg PO BID 04/28/24 04/28/24 History Pioglitazone [Actos] 30 mg PO DAILY 04/28/24 04/28/24 History Promethazine HCl 12.5 mg PO QID PRN 04/28/24 04/28/24 History Rosuvastatin Calcium [Crestor] 5 mg PO DAILY 04/28/24 04/28/24 History hydroCHLOROthiazide [Hydrodiuril] 25 mg PO DAILY 04/28/24 04/28/24 History sitaGLIPtin PHOS/metFORMIN HCL 1 tab PO BID 04/28/24 04/28/24 History [Janumet 50-1,000 mg Tablet] Allergies Allergy/AdvReac Type Severity Reaction Status Date / Time No Known Allergies Allergy Verified 04/28/24 09:01 Surgical - Exam Vital Signs Temp Pulse Resp BP Pulse Ox 97.8 F 85 20 142/79 99 04/27/24 17:18 04/27/24 17:18 04/27/24 17:18 04/27/24 17:18 04/27/24 17:18 Results - Labs 04/28/24 05:14 04/28/24 09:36 Abnormal Lab Results - Last 24 Hours (Table) 04/27/24 04/27/24 04/27/24 Range/Units 17:22 17:22 17:22 WBC 12.0 H (3.8-10.6) k/uL RBC (3.80-5.40) m/uL Neutrophils # 9.5 H (1.3-7.7) k/uL APTT 20.0 L (22.0-30.0) sec Sodium 135 L (137-145) mmol/L Potassium 2.4 L* (3.5-5.1) mmol/L Chloride 96 L (98-107) mmol/L Carbon Dioxide 19 L (22-30) mmol/L Glucose 193 H (74-99) mg/dL POC Glucose (mg/dL) (70-110) mg/dL Calcium (8.4-10.2) mg/dL Magnesium (1.6-2.3) mg/dL Ur Specific [place] (1.001-1.035) Urine Protein (Negative) Urine Glucose (UA) (Negative) Urine Ketones (Negative) Urine Bilirubin (Negative) Ur Leukocyte Esterase (Negative) Urine WBC (0-5) /hpf Urine Bacteria (None) /hpf Hyaline Casts (0-2) /lpf Urine Mucus (None) /hpf 04/27/24 04/27/24 04/28/24 Range/Units 17:22 22:08 00:54 WBC (3.8-10.6) k/uL RBC (3.80-5.40) m/uL Neutrophils # (1.3-7.7) k/uL APTT (22.0-30.0) sec Sodium 134 L (137-145) mmol/L Potassium 2.6 L* (3.5-5.1) mmol/L Chloride (98-107) mmol/L Carbon Dioxide 20 L (22-30) mmol/L Glucose 138 H (74-99) mg/dL POC Glucose (mg/dL) (70-110) mg/dL Calcium 8.3 L (8.4-10.2) mg/dL Magnesium 1.3 L (1.6-2.3) mg/dL Ur Specific [place] >1.050 H (1.001-1.035) Urine Protein Trace H (Negative) Urine Glucose (UA) 1+ H (Negative) Urine Ketones 4+ H (Negative) Urine Bilirubin 1+ H (Negative) Ur Leukocyte Esterase Small H (Negative) Urine WBC 23 H (0-5) /hpf Urine Bacteria Many H (None) /hpf Hyaline Casts 16 H (0-2) /lpf Urine Mucus Occasional H (None) /hpf 04/28/24 04/28/24 04/28/24 Range/Units 05:14 05:14 09:36 WBC (3.8-10.6) k/uL RBC 3.78 L (3.80-5.40) m/uL Neutrophils # (1.3-7.7) k/uL APTT (22.0-30.0) sec Sodium 134 L (137-145) mmol/L Potassium 2.8 L 3.1 L (3.5-5.1) mmol/L Chloride (98-107) mmol/L Carbon Dioxide 21 L (22-30) mmol/L Glucose 128 H (74-99) mg/dL POC Glucose (mg/dL) (70-110) mg/dL Calcium (8.4-10.2) mg/dL Magnesium (1.6-2.3) mg/dL Ur Specific [place] (1.001-1.035) Urine Protein (Negative) Urine Glucose (UA) (Negative) Urine Ketones (Negative) Urine Bilirubin (Negative) Ur Leukocyte Esterase (Negative) Urine WBC (0-5) /hpf Urine Bacteria (None) /hpf Hyaline Casts (0-2) /lpf Urine Mucus (None) /hpf 04/28/24 Range/Units 11:48 WBC (3.8-10.6) k/uL RBC (3.80-5.40) m/uL Neutrophils # (1.3-7.7) k/uL APTT (22.0-30.0) sec Sodium (137-145) mmol/L Potassium (3.5-5.1) mmol/L Chloride (98-107) mmol/L Carbon Dioxide (22-30) mmol/L Glucose (74-99) mg/dL POC Glucose (mg/dL) 116 H (70-110) mg/dL Calcium (8.4-10.2) mg/dL Magnesium (1.6-2.3) mg/dL Ur Specific [place] (1.001-1.035) Urine Protein (Negative) Urine Glucose (UA) (Negative) Urine Ketones (Negative) Urine Bilirubin (Negative) Ur Leukocyte Esterase (Negative) Urine WBC (0-5) /hpf Urine Bacteria (None) /hpf Hyaline Casts (0-2) /lpf Urine Mucus (None) /hpf Diabetes panel 04/27/24 04/28/24 04/28/24 Range/Units 17:22 00:54 05:14 Sodium 135 L 134 L 134 L (137-145) mmol/L Potassium 2.4 L* 2.6 L* 2.8 L (3.5-5.1) mmol/L Chloride 96 L 100 103 (98-107) mmol/L Carbon Dioxide 19 L 20 L 21 L (22-30) mmol/L BUN 11 9 8 (7-17) mg/dL Creatinine 0.63 0.53 0.59 (0.52-1.04) mg/dL Glucose 193 H 138 H 128 H (74-99) mg/dL Calcium 9.6 8.3 L 8.4 (8.4-10.2) mg/dL AST 20 (14-36) U/L ALT 11 (4-34) U/L Alkaline Phosphatase 75 (38-126) U/L Total Protein 6.3 (6.3-8.2) g/dL Albumin 3.7 (3.5-5.0) g/dL 04/28/24 Range/Units 09:36 Sodium (137-145) mmol/L Potassium 3.1 L (3.5-5.1) mmol/L Chloride (98-107) mmol/L Carbon Dioxide (22-30) mmol/L BUN (7-17) mg/dL Creatinine (0.52-1.04) mg/dL Glucose (74-99) mg/dL Calcium (8.4-10.2) mg/dL AST (14-36) U/L ALT (4-34) U/L Alkaline Phosphatase (38-126) U/L Total Protein (6.3-8.2) g/dL Albumin (3.5-5.0) g/dL Calcium panel 04/27/24 04/28/24 04/28/24 Range/Units 17:22 00:54 05:14 Calcium 9.6 8.3 L 8.4 (8.4-10.2) mg/dL Albumin 3.7 (3.5-5.0) g/dL Pituitary panel 04/27/24 04/28/24 04/28/24 Range/Units 17:22 00:54 05:14 Sodium 135 L 134 L 134 L (137-145) mmol/L Potassium 2.4 L* 2.6 L* 2.8 L (3.5-5.1) mmol/L Chloride 96 L 100 103 (98-107) mmol/L Carbon Dioxide 19 L 20 L 21 L (22-30) mmol/L BUN 11 9 8 (7-17) mg/dL Creatinine 0.63 0.53 0.59 (0.52-1.04) mg/dL Glucose 193 H 138 H 128 H (74-99) mg/dL Calcium 9.6 8.3 L 8.4 (8.4-10.2) mg/dL 04/28/24 Range/Units 09:36 Sodium (137-145) mmol/L Potassium 3.1 L (3.5-5.1) mmol/L Chloride (98-107) mmol/L Carbon Dioxide (22-30) mmol/L BUN (7-17) mg/dL Creatinine (0.52-1.04) mg/dL Glucose (74-99) mg/dL Calcium (8.4-10.2) mg/dL Adrenal panel 04/27/24 04/28/24 04/28/24 Range/Units 17:22 00:54 05:14 Sodium 135 L 134 L 134 L (137-145) mmol/L Potassium 2.4 L* 2.6 L* 2.8 L (3.5-5.1) mmol/L Chloride 96 L 100 103 (98-107) mmol/L Carbon Dioxide 19 L 20 L 21 L (22-30) mmol/L BUN 11 9 8 (7-17) mg/dL Creatinine 0.63 0.53 0.59 (0.52-1.04) mg/dL Glucose 193 H 138 H 128 H (74-99) mg/dL Calcium 9.6 8.3 L 8.4 (8.4-10.2) mg/dL Total Bilirubin 1.0 (0.2-1.3) mg/dL AST 20 (14-36) U/L ALT 11 (4-34) U/L Alkaline Phosphatase 75 (38-126) U/L Total Protein 6.3 (6.3-8.2) g/dL Albumin 3.7 (3.5-5.0) g/dL 02/25/25 Range/Units 09:36 Sodium (137-145) mmol/L Potassium 3.1 L (3.5-5.1) mmol/L Chloride (98-107) mmol/L Carbon Dioxide (22-30) mmol/L BUN (7-17) mg/dL Creatinine (0.52-1.04) mg/dL Glucose (74-99) mg/dL Calcium (8.4-10.2) mg/dL Total Bilirubin (0.2-1.3) mg/dL AST (14-36) U/L ALT (4-34) U/L Alkaline Phosphatase (38-126) U/L Total Protein (6.3-8.2) g/dL Albumin (3.5-5.0) g/dL
--- NOTE | 2024-04-28 14:51 | P.CONS ---
History of Present Illness - Reason for Consult Consult date: 04/28/24 Nausea and vomiting Requesting physician: Barbie Triplett - Chief Complaint Nausea and vomiting - History of Present Illness This is a pleasant 69-year-old female who has had ongoing nausea and vomiting for several months, even possibly for the last year and he has followed with Dr. Rodriguez in the office and was seen yesterday. She was noted to be dehydrated and weak and was sent over to the emergency department for further evaluation. On admission she was noted to be hyponatremic and hypokalemic as well as dehydrated. Patient has had increased nausea and vomiting over the last 2 2 days vomiting up to several times a day nonbilious nonbloody emesis. Prior to that vomiting is intermittent maybe 1 to 2 days a week however she has not been eating due to stomach getting upset. States that she is lost 40 pounds over the last few months duration. She had a recent EGD 2 weeks ago at [facility] with no significant findings, colonoscopy about 2 years ago. She underwent cholecystectomy for cholecystitis on 02/21/2024 at [facility]. Today she has not had any vomiting she is taking in some liquids. States she has had constipation and some loose stools. She is denying any abdominal pain. Review of Systems REVIEW OF SYSTEMS: CARDIOPULMONARY: No chest pain or shortness of breath. Gastrointestinal: No abdominal pain. Nausea and vomiting, acute on chronic. No hematemesis, coffee-ground emesis. No rectal bleeding, or melena. GENITOURINARY: No dysuria or hematuria. MUSCULOSKELETAL: Reports normal range of motion., Joint pain. SKIN: No rashes. No jaundice. ENDOCRINE: No chills, fevers. No excessive weight gain or loss. No polydipsia or polyuria. PSYCHIATRIC: Unremarkable. NEUROLOGY: No change in mental status. Denies dizziness, headache. ENT: Vision unremarkable. CONSTITUTIONAL: No recent weight loss. No fever, chills, night sweats. Past Medical History Past Medical History: Diabetes Mellitus, Hyperlipidemia, Hypertension History of Any Multi-Drug Resistant Organisms: None Reported Past Surgical History: Cholecystectomy, Tonsillectomy Additional Past Surgical History / Comment(s): d & c Past Anesthesia/Blood Transfusion Reactions: No Reported Reaction Past Psychological History: Depression Smoking Status: Never smoker Medications and Allergies Home Medications Medication Instructions Recorded Confirmed Type Famotidine [Pepcid] 40 mg PO DAILY 04/28/24 04/28/24 History Ondansetron [Zofran] 4 mg PO BID 04/28/24 04/28/24 History Pioglitazone [Actos] 30 mg PO DAILY 04/28/24 04/28/24 History Promethazine HCl 12.5 mg PO QID PRN 04/28/24 04/28/24 History Rosuvastatin Calcium [Crestor] 5 mg PO DAILY 04/28/24 04/28/24 History hydroCHLOROthiazide [Hydrodiuril] 25 mg PO DAILY 04/28/24 04/28/24 History sitaGLIPtin PHOS/metFORMIN HCL 1 tab PO BID 04/28/24 04/28/24 History [Janumet 50-1,000 mg Tablet] Allergies Allergy/AdvReac Type Severity Reaction Status Date / Time No Known Allergies Allergy Verified 04/28/24 09:01 Physical Exam Vitals: Vital Signs Temp Pulse Resp BP Pulse Ox 04/28/24 05:26 68 18 150/68 98 04/28/24 01:00 82 18 143/57 96 04/27/24 23:41 84 18 125/67 97 04/27/24 21:50 90 20 133/68 97 04/27/24 20:34 90 18 146/76 98 04/27/24 17:18 97.8 F 85 20 142/79 99 Intake and Output 04/27/24 04/28/24 04/28/24 22:59 06:59 14:59 Other: Weight 63.503 kg General appearance: The patient is alert, oriented, appears in no acute dist ress. HET: Head is normocephalic and atraumatic. Conjunctiva pink. Sclera anicteric. Neck: Supple without lymphadenopathy. Abdomen: Soft, nontender, nondistended. Extremities: Normal skin color and turgor. No pedal edema Skin: No rashes, no jaundice Neurological: No focal deficits. Alert and oriented. Results CBC & Chem 7: 04/28/24 05:14 04/28/24 09:36 Labs: Abnormal Lab Results - Last 24 Hours (Table) 04/27/24 04/27/24 04/27/24 Range/Units 17:22 17:22 17:22 WBC 12.0 H (3.8-10.6) k/uL RBC (3.80-5.40) m/uL Neutrophils # 9.5 H (1.3-7.7) k/uL APTT 20.0 L (22.0-30.0) sec Sodium 135 L (137-145) mmol/L Potassium 2.4 L* (3.5-5.1) mmol/L Chloride 96 L (98-107) mmol/L Carbon Dioxide 19 L (22-30) mmol/L Glucose 193 H (74-99) mg/dL Calcium (8.4-10.2) mg/dL Magnesium (1.6-2.3) mg/dL Ur Specific [place] (1.001-1.035) Urine Protein (Negative) Urine Glucose (UA) (Negative) Urine Ketones (Negative) Urine Bilirubin (Negative) Ur Leukocyte Esterase (Negative) Urine WBC (0-5) /hpf Urine Bacteria (None) /hpf Hyaline Casts (0-2) /lpf Urine Mucus (None) /hpf 04/27/24 04/27/24 04/28/24 Range/Units 17:22 22:08 00:54 WBC (3.8-10.6) k/uL RBC (3.80-5.40) m/uL Neutrophils # (1.3-7.7) k/uL APTT (22.0-30.0) sec Sodium 134 L (137-145) mmol/L Potassium 2.6 L* (3.5-5.1) mmol/L Chloride (98-107) mmol/L Carbon Dioxide 20 L (22-30) mmol/L Glucose 138 H (74-99) mg/dL Calcium 8.3 L (8.4-10.2) mg/dL Magnesium 1.3 L (1.6-2.3) mg/dL Ur Specific [place] >1.050 H (1.001-1.035) Urine Protein Trace H (Negative) Urine Glucose (UA) 1+ H (Negative) Urine Ketones 4+ H (Negative) Urine Bilirubin 1+ H (Negative) Ur Leukocyte Esterase Small H (Negative) Urine WBC 23 H (0-5) /hpf Urine Bacteria Many H (None) /hpf Hyaline Casts 16 H (0-2) /lpf Urine Mucus Occasional H (None) /hpf 04/28/24 04/28/24 04/28/24 Range/Units 05:14 05:14 09:36 WBC (3.8-10.6) k/uL RBC 3.78 L (3.80-5.40) m/uL Neutrophils # (1.3-7.7) k/uL APTT (22.0-30.0) sec Sodium 134 L (137-145) mmol/L Potassium 2.8 L 3.1 L (3.5-5.1) mmol/L Chloride (98-107) mmol/L Carbon Dioxide 21 L (22-30) mmol/L Glucose 128 H (74-99) mg/dL Calcium (8.4-10.2) mg/dL Magnesium (1.6-2.3) mg/dL Ur Specific [place] (1.001-1.035) Urine Protein (Negative) Urine Glucose (UA) (Negative) Urine Ketones (Negative) Urine Bilirubin (Negative) Ur Leukocyte Esterase (Negative) Urine WBC (0-5) /hpf Urine Bacteria (None) /hpf Hyaline Casts (0-2) /lpf Urine Mucus (None) /hpf Comments: CT of the abdomen pelvis with contrast with reported findings of acute gastritis/enteritis in addition to colitis likely related to infectious/inflammatory etiology. Nonspecific intrahepatic and extrahepatic biliary ductal dilation. Gallbladder not visualized. Findings could relate to postcholecystectomy state. Correlate with clinical evaluation this can be further characterized with nonemergent outpatient MRI/MRCP. Indeterminant left adrenal gland nodule. Further characterization is recommended with a nonemergent outpatient MRI CT abdomen adrenal mass protocol Assessment and Plan (1) Nausea and vomiting Narrative/Plan: Chronic nausea and vomiting superimposed by acute episodes over the last couple days duration mixed with some chronic constipation with recent diarrhea. Symptoms have been ongoing she had recent upper endoscopy 2 weeks ago for further evaluation of the nausea and vomiting at [facility] without any significant findings. Last colonoscopy about 2 years ago. She had recent cholecystectomy done in February 2024 however symptoms had preceded that for months. Unclear etiology of nausea and vomiting. Recommend fasting cortisol level and gastric emptying study. There is no elevation in her LFTs no elevated bilirubin. CT abdomen pelvis showing gastritis and colitis possible secondary to infectious versus inflammatory process. Intra and extrahepatic biliary dilation likely secondary to postcholecystectomy.. However patient has no leukocytosis. Treat symptomatically. Current Visit: Yes Status: Acute Code(s): R11.2 - NAUSEA WITH VOMITING, UNSPECIFIED SNOMED Code(s): 56659288 (2) Hypokalemia Current Visit: Yes Status: Acute Code(s): E87.6 - HYPOKALEMIA SNOMED Code(s): 54370743 (3) Hypomagnesemia Current Visit: Yes Status: Acute Code(s): E83.42 - HYPOMAGNESEMIA SNOMED Code(s): 155347066 (4) Dilated intrahepatic bile duct Narrative/Plan: Likely secondary to post cholecystectomy. No elevated LFTs. No abdominal pain reported. Current Visit: Yes Status: Acute Code(s): K83.8 - OTHER SPECIFIED DISEASES OF BILIARY TRACT SNOMED Code(s): 016377042 Plan: 1. Continue symptomatic and supportive care 2. Antiemetics as needed 3. Protonix 40 mg daily for GI prophylaxis 4. Replace potassium per protocol 5. Clear liquid diet, advance as tolerated 6. Will order gastric emptying study 7. Fasting cortisol level ordered 8. No plans for endoscopic evaluation at this time patient had recent upper endoscopy within the last 2 weeks. Thank you for this consultation, we will continue to follow. Dr. Rabia Rodriguez I agree with the dictator's note, documented as a scribe by Jillian Mark.
--- NOTE | 2024-04-28 14:53 | P.PN ---
Subjective Progress Note Date: 04/28/24 Patient is a 69-year-old female with past medical history significant for npr-grrpnnd-xzbtxzotb diabetes mellitus, hypertension, hyperlipidemia presents to the emergency department with nausea/vomiting, diarrhea, decreased appetite since December gradually worsening over the last few weeks. 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 She has been unable to tolerate oral intake as everything upsets her stomach. She also reports intermittent cramping pain throughout the abdomen. She has had a 50 pound weight loss since January 2024. She reports that she had a CT abdomen performed at [facility] about 2 weeks ago which showed "inflammation of the intestines" as well as an EGD with Dr. Rodriguez about a week ago. She was in Dr. Rodriguez's office today who strongly recommended that she come to the ED due to dehydration and inability to tolerate oral intake. Of note she says that January 2023 she began taking Ozempic for total of 2 months, initially prescribed 5 mg and decreased to 2.5 mg but she was unable tolerate the medication. She states that she has not fully felt like herself since then. She denies fever, chest pain, dyspnea, hematuria, hematochezia/melena, hemateme sis. Initial vitals: BP 142/79, CO 85 bpm, 97.8 F, 99% on room air Initial labs: WBC 12, hemoglobin 13.3, platelets 374, PTT 20, sodium 135, potassium 2.4, chloride 96, CO2 19, BUN 11, creatinine 0.63, glucose 193, magnesium 1.3 Initial EKG: Supraventricular rhythm with ventricular rate 82 bpm, QTc 370 ms, mild ST-depression in lead II Initial CT abdomen/pelvis: Findings suggestive of acute gastritis/enteritis in addition to colitis likely related to infectious/inflammatory etiology; nonspecific intrahepatic and extrahepatic biliary ductal dilatation; intermediate left adrenal gland nodule Urinalysis: Trace protein, 1+ glucose, 4+ ketones, 1+ bilirubin, bacteria, 23 WBC, hyaline casts 04/28/2024 patient seen and examined at bedside. No new complaints. WBC 7.9, hemoglobin 11.4, hematocrit 34.8, platelet count 281,000, sodium 134, potassium 2.8, chloride 103, bicarb 21, BUN 8, creatinine 0.59, glucose 128, calcium 8.4 Review of systems: Pertinent positives and negatives as discussed in HPI, a complete review of systems was performed and all other systems are negative. Pertinent imaging and labs reviewed. Physical examination: Vital signs reviewed General: non toxic, no distress, appears at stated age Derm: no unusual rashes/lesions, warm Head: atraumatic, normocephalic, symmetric Eyes: EOMI, anicteric sclera, pupils equal round reactive to light ENT: Nose and ears atraumatic Neck: No cervical lymphadenopathy, trachea midline, supple Mouth: no lip lesion, mucus membranes moist Cardiovascular: S1S2 reg, grade 3/6 systolic murmur present best heard on 2nd right ICS Lungs: CTA bilateral, no rhonchi, no rales, no accessory muscle use Abdominal: soft, nontender, no guarding Ext: muscle strength 5 out of 5 in all 4 extremities grossly, no gross muscle atrophy, no contractures, positive dorsalis pedis pulse bilateral, no edema Neuro: CN II-XI grossly intact, no gross focal neuro deficits Psych: Alert and oriented x3, appropriate affect and mood Assessment/Plan: Patient is a 69-year-old female with a past medical history significant for fzm-qkziial-cyzdghmei diabetes mellitus, hypertension, hyperlipidemia admitted for intractable nausea/vomiting and hypokalemia. #. Acute gastroenteritis #. Persistent nausea/vomiting CT abdomen/pelvis: Findings suggestive of acute gastritis/enteritis in addition to colitis likely related to infectious/inflammatory etiology; nonspecific intrahepatic and extrahepatic biliary ductal dilatation; intermediate left adrenal gland nodule Zofran 4 mg IV every 8 hours as needed for nausea NS 0.9 130cc/hour C. difficile pending Stool culture pending GI consulted. Consider MRCP General surgery consulted. No surgical management required at this time Production Manufacturing Worker consulted for nutritional support as patient cannot tolerate oral intake at this time #. Severe hypokalemia Potassium 2.4 admission. Now at 2.8. Pending repeat at 9:30am Supraventricular rhythm with ventricular rate 82 bpm, QTc 370 ms, mild ST- depression in lead II Potassium chloride 60 mEq (40 mEq PO and 20 mEq IV) given in ED. Repletion with 80mEq potassium finished at 7 am Repeat BMP and magnesium, monitor every 4 hours Continue to replete potassium as needed Continue telemetry monitoring Chronic #. Hypertension Continue home medications once confirmed #. Depression Continue Cymbalta 30 mg p.o. at bedtime #. Hyperlipidemia Continue Lipitor 20 mg p.o. at bedtime #. Diabetes -Hold pioglitazone and Janumet -NovoLog ISS ACHS -Glucose Accu-Cheks ACHS. Monitor for hypoglycemia DVT prophylaxis: Lovenox 40 mg subcutaneous daily GI prophylaxis: Protonix 40 mg IV qd F: 0.9 normal saline 130 cc/h E: Monitor potassium N: N.p.o. for now. Advance as tolerated A: Can ambulate with assistance CODE STATUS: Full Code Anticipated discharge place: Pending clinical course Lara Alonzo MD PGY-1/Eyewear Manufacturing Supervisor Dictation was produced using [employer] dictation software. please excuse any grammatical, word or spelling errors. I have seen and evaluated the patient today. Discussed with the resident and agree with the residents finding and plan as documented in the resident's note. Changes highlighted in blue font. Discussed with Jillian CUENCA, plans for gastric emptying study tomorrow. Objective - Vital Signs Vital signs: Vital Signs Temp 97.8 F 04/27/24 17:18 Pulse 68 04/28/24 05:26 Resp 18 04/28/24 05:26 BP 150/68 04/28/24 05:26 Pulse Ox 98 04/28/24 05:26 FiO2 Intake & Output 04/27/24 04/27/24 04/28/24 06:59 18:59 06:59 Weight 63.503 kg - Labs CBC & Chem 7: 04/28/24 05:14 04/28/24 09:36 Labs: Abnormal Lab Results - Last 24 Hours (Table) 04/27/24 04/27/24 04/27/24 Range/Units 17:22 17:22 17:22 WBC 12.0 H (3.8-10.6) k/uL RBC (3.80-5.40) m/uL Neutrophils # 9.5 H (1.3-7.7) k/uL APTT 20.0 L (22.0-30.0) sec Sodium 135 L (137-145) mmol/L Potassium 2.4 L* (3.5-5.1) mmol/L Chloride 96 L (98-107) mmol/L Carbon Dioxide 19 L (22-30) mmol/L Glucose 193 H (74-99) mg/dL Calcium (8.4-10.2) mg/dL Magnesium (1.6-2.3) mg/dL Ur Specific [place] (1.001-1.035) Urine Protein (Negative) Urine Glucose (UA) (Negative) Urine Ketones (Negative) Urine Bilirubin (Negative) Ur Leukocyte Esterase (Negative) Urine WBC (0-5) /hpf Urine Bacteria (None) /hpf Hyaline Casts (0-2) /lpf Urine Mucus (None) /hpf 04/27/24 04/27/24 04/28/24 Range/Units 17:22 22:08 00:54 WBC (3.8-10.6) k/uL RBC (3.80-5.40) m/uL Neutrophils # (1.3-7.7) k/uL APTT (22.0-30.0) sec Sodium 134 L (137-145) mmol/L Potassium 2.6 L* (3.5-5.1) mmol/L Chloride (98-107) mmol/L Carbon Dioxide 20 L (22-30) mmol/L Glucose 138 H (74-99) mg/dL Calcium 8.3 L (8.4-10.2) mg/dL Magnesium 1.3 L (1.6-2.3) mg/dL Ur Specific [place] >1.050 H (1.001-1.035) Urine Protein Trace H (Negative) Urine Glucose (UA) 1+ H (Negative) Urine Ketones 4+ H (Negative) Urine Bilirubin 1+ H (Negative) Ur Leukocyte Esterase Small H (Negative) Urine WBC 23 H (0-5) /hpf Urine Bacteria Many H (None) /hpf Hyaline Casts 16 H (0-2) /lpf Urine Mucus Occasional H (None) /hpf 04/28/24 04/28/24 Range/Units 05:14 05:14 WBC (3.8-10.6) k/uL RBC 3.78 L (3.80-5.40) m/uL Neutrophils # (1.3-7.7) k/uL APTT (22.0-30.0) sec Sodium 134 L (137-145) mmol/L Potassium 2.8 L (3.5-5.1) mmol/L Chloride (98-107) mmol/L Carbon Dioxide 21 L (22-30) mmol/L Glucose 128 H (74-99) mg/dL Calcium (8.4-10.2) mg/dL Magnesium (1.6-2.3) mg/dL Ur Specific [place] (1.001-1.035) Urine Protein (Negative) Urine Glucose (UA) (Negative) Urine Ketones (Negative) Urine Bilirubin (Negative) Ur Leukocyte Esterase (Negative) Urine WBC (0-5) /hpf Urine Bacteria (None) /hpf Hyaline Casts (0-2) /lpf Urine Mucus (None) /hpf
[2024-04-28 21:11] LABS: Glucose,Whole Blood 112 mg/dL (70-110)
[2024-04-28] MEDS: ATORVASTATIN 20 MG TAB PO SCH (22:21)
[2024-04-28] MEDS: DULoxetine HCL 30 MG CAPSULE.DR PO SCH (22:21)
[2024-04-29] MEDS: ONDANSETRON 4 MG/2 ML VIAL IVP PRN (02:02)
[2024-04-29 04:26] LABS: Basophils % (A) 0 %; Eosinophils # (A) 0.1 k/uL (0-0.7); Eosinophils % (A) 1 %; HCT 34.4 % (34.0-46.0); HGB 11.1 gm/dL (11.4-16.0); Hypochromasia Slight; Lymphocytes # (A) 0.8 k/uL (1.0-4.8); Lymphocytes % (A) 11 %; MCH 30.5 pg (25.0-35.0); MCHC 32.1 g/dL (31.0-37.0); MCV 94.9 fL (80.0-100.0); Mean Platelet Volume 7.7; Monocytes # (A) 0.5 k/uL (0-1.0); Monocytes % (A) 6 %; Neutrophils % (A) 80 %; Platelet Count 251 k/uL (150-450); RBC 3.63 m/uL (3.80-5.40); RDW 15.3 % (11.5-15.5); WBC 7.5 k/uL (3.8-10.6)
[2024-04-29 04:46] LABS: African American GFR (CKD) >90 (>60 ml/min/1.73 sqM); Blood Urea Nitrogen 6 mg/dL (7-17); Carbon Dioxide 16 mmol/L (22-30); Non-African American GFR(CKD) >90 (>60 ml/min/1.73 sqM); Potassium 3.5 mmol/L (3.5-5.1)
[2024-04-29 04:48] LABS: Anion Gap 15 mmol/L; Calcium 8.3 mg/dL (8.4-10.2); Chloride 104 mmol/L (98-107); Glucose 162 mg/dL (74-99); Sodium 135 mmol/L (137-145)
[2024-04-29 05:56] LABS: Glucose,Whole Blood 166 mg/dL (70-110)
[2024-04-29] MEDS: FAMOTIDINE 20 MG TAB PO SCH (10:54)
[2024-04-29] MEDS: CALCIUM CARBONATE 500 MG CHEWABLE PO PRN (10:54)
[2024-04-29] MEDS: LACTATED RINGERS 1,000 ML IV SCH (10:55)
[2024-04-29 11:38] LABS: Glucose,Whole Blood 145 mg/dL (70-110)
[2024-04-29] MEDS: METOCLOPRAMIDE 5 MG/ML 2 ML VIAL IVP SCH (12:02)
--- NOTE | 2024-04-29 12:57 | P.PN ---
Subjective Progress Note Date: 04/29/24 Principal diagnosis: Nausea and vomiting This is a pleasant 69-year-old female who has had ongoing nausea and vomiting for several months, even possibly for the last year and he has followed with Dr. Rodriguez in the office and was seen yesterday. She was noted to be dehydrated and weak and was sent over to the emergency department for further evaluation. On admission she was noted to be hyponatremic and hypokalemic as well as dehydrated. Patient has had increased nausea and vomiting over the last 2 2 days vomiting up to several times a day nonbilious nonbloody emesis. Prior to that vomiting is intermittent maybe 1 to 2 days a week however she has not been eating due to stomach getting upset. States that she is lost 40 pounds over the last few months duration. She had a recent EGD 2 weeks ago at [facility] [place] with no significant findings, colonoscopy about 2 years ago. She underwent cholecystectomy for cholecystitis on 02/21/2024 at [facility]. Today she has not had any vomiting she is taking in some liquids. States she has had constipation and some loose stools. She is denying any abdominal pain. 04/29/2024 Patient seen and examined today as a follow-up. She states she had a bad night and she had nausea and vomiting. States she continues to have an upset stomach and feels gassy. She is scheduled for a gastric emptying study on Saturday. She cannot have any proton pump inhibitors. She had a couple episodes of diarrhea yesterday, stool was sent for stool studies however apparently had spilled. She denies any blood in her stool or emesis. She has had no further emesis this morning. Cortisol level 34.4 Objective - Vital Signs Vital signs: Vital Signs Temp 97.7 F 04/29/24 07:20 Pulse 65 04/29/24 07:20 Resp 17 04/29/24 07:20 BP 134/77 04/29/24 07:20 Pulse Ox 99 04/29/24 07:20 FiO2 Intake & Output 04/28/24 04/29/24 04/29/24 18:59 06:59 18:59 Weight 63.503 kg Other: # Voids 2 # Bowel Movements 3 - Exam General appearance: The patient is alert, oriented, appears in no acute distress. HET: Head is normocephalic and atraumatic. Conjunctiva pink. Sclera anicteric. Neck: Supple without lymphadenopathy. Abdomen: Soft, nontender, nondistended. Extremities: Normal skin color and turgor. No pedal edema Skin: No rashes, no jaundice Neurological: No focal deficits. Alert and oriented. - Labs CBC & Chem 7: 04/29/24 03:45 04/29/24 03:45 Labs: Abnormal Lab Results - Last 24 Hours (Table) 04/28/24 04/28/24 04/29/24 Range/Units 11:48 21:09 03:45 RBC (3.80-5.40) m/uL Hgb (11.4-16.0) gm/dL Lymphocytes # (1.0-4.8) k/uL Sodium (137-145) mmol/L Carbon Dioxide (22-30) mmol/L BUN (7-17) mg/dL Glucose (74-99) mg/dL POC Glucose (mg/dL) 116 H 112 H (70-110) mg/dL Calcium (8.4-10.2) mg/dL Cortisol 34.4 H (3.1-22.4) UG/DL 04/29/24 04/29/24 04/29/24 Range/Units 03:45 03:45 05:55 RBC 3.63 L (3.80-5.40) m/uL Hgb 11.1 L (11.4-16.0) gm/dL Lymphocytes # 0.8 L (1.0-4.8) k/uL Sodium 135 L (137-145) mmol/L Carbon Dioxide 16 L (22-30) mmol/L BUN 6 L (7-17) mg/dL Glucose 162 H (74-99) mg/dL POC Glucose (mg/dL) 166 H (70-110) mg/dL Calcium 8.3 L (8.4-10.2) mg/dL Cortisol (3.1-22.4) UG/DL Assessment and Plan (1) Nausea and vomiting Narrative/Plan: Chronic nausea and vomiting superimposed by acute episodes over the last couple days duration mixed with some chronic constipation with recent diarrhea. Symptoms have been ongoing she had recent upper endoscopy 2 weeks ago for fur ther evaluation of the nausea and vomiting at [facility] [place] without any significant findings. Last colonoscopy about 2 years ago. She had recent cholecystectomy done in February 2024 however symptoms had preceded that for months. Unclear etiology of nausea and vomiting. Recommend fasting cortisol level and gastric emptying study. Cortisol level normal, gastric emptying study tentatively scheduled for Saturday. There is no elevation in her LFTs no elevated bilirubin. CT abdomen pelvis showing gastritis and colitis possible secondary to infectious versus inflammatory process. Intra and extrahepatic biliary dilation likely secondary to postcholecystectomy. However patient has no leukocytosis. Treat symptomatically. Current Visit: Yes Status: Acute Code(s): R11.2 - NAUSEA WITH VOMITING, UNSPECIFIED SNOMED Code(s): 50460856 (2) Hypokalemia Current Visit: Yes Status: Acute Code(s): E87.6 - HYPOKALEMIA SNOMED Code(s): 54399809 (3) Hypomagnesemia Current Visit: Yes Status: Acute Code(s): E83.42 - HYPOMAGNESEMIA SNOMED Code(s): 929355423 (4) Dilated intrahepatic bile duct Narrative/Plan: Likely secondary to post cholecystectomy. No elevated LFTs. No abdominal pain reported. Current Visit: Yes Status: Acute Code(s): K83.8 - OTHER SPECIFIED DISEASES OF BILIARY TRACT SNOMED Code(s): 639859789 Plan: 1. Continue symptomatic and supportive care 2. Antiemetics as needed 3. Discontinue Protonix secondary to scheduled gastric emptying study 4. Will add Pepcid 20 mg twice daily and Tums as needed 5. Advance to consistent carbohydrate diet. Ensure added with meals 6. Gastric emptying study ordered, scheduled for Saturday 7. No plans for endoscopic evaluation at this time patient had recent upper endoscopy within the last 2 weeks. 8. Further recommendations forthcoming based on clinical course Thank you for this consultation, we will continue to follow. Dr. Rabia Rodriguez I agree with the dictator's note, documented as a scribe by Jillian Mark.
--- NOTE | 2024-04-29 13:04 | P.PN ---
Subjective Progress Note Date: 04/29/24 SURGICAL PROGRESS NOTE CHIEF COMPLAINT: Nausea, vomiting and diarrhea HISTORY OF PRESENT ILLNESS: Patient had vomiting during the night as well as diarrhea. She still complains of some epigastric and lower abdominal discomfort. She is followed by GI service they have ordered a gastric emptying study for Saturday. Afebrile. WBC is 7.5 potassium 3.5 magnesium 2.0. Stool cultures pending PHYSICAL EXAM: VITAL SIGNS: Reviewed. GENERAL: Well-developed in no acute distress. ABDOMEN: Soft. Nondistended. Mild epigastric and lower abdominal discomfort with palpation NEUROLOGIC: Alert and oriented. Cranial nerves II through XII grossly intact. ASSESSMENT: 1. Abdominal pain with nausea vomiting and diarrhea. Possible gastroenteritis and colitis noted on CT scan 2. Hypokalemia improved 3. Hypomagnesemia 4. Recent antibiotic use for UTI 5. History of recent laparoscopic cholecystectomy February 20 PLAN: -No surgical intervention planned -Continue GI workup. They have a gastric emptying study scheduled for Saturday -Continue clear liquid diet Physician Travel Sales Consultant note has been reviewed by physician. Signing provider agrees with the documented findings, assessment, and plan of care. Objective - Vital Signs Vital signs: Vital Signs Temp 97.7 F 04/29/24 07:20 Pulse 65 04/29/24 07:20 Resp 17 04/29/24 07:20 BP 134/77 04/29/24 07:20 Pulse Ox 99 04/29/24 07:20 FiO2 Intake & Output 04/28/24 04/29/24 04/29/24 18:59 06:59 18:59 Weight 63.503 kg Other: # Voids 2 # Bowel Movements 3 - Labs CBC & Chem 7: 04/29/24 03:45 04/29/24 03:45 Labs: Abnormal Lab Results - Last 24 Hours (Table) 04/28/24 04/29/24 04/29/24 Range/Units 21:09 03:45 03:45 RBC 3.63 L (3.80-5.40) m/uL Hgb 11.1 L (11.4-16.0) gm/dL Lymphocytes # 0.8 L (1.0-4.8) k/uL Sodium (137-145) mmol/L Carbon Dioxide (22-30) mmol/L BUN (7-17) mg/dL Glucose (74-99) mg/dL POC Glucose (mg/dL) 112 H (70-110) mg/dL Calcium (8.4-10.2) mg/dL Cortisol 34.4 H (3.1-22.4) UG/DL 04/29/24 04/29/24 04/29/24 Range/Units 03:45 05:55 11:31 RBC (3.80-5.40) m/uL Hgb (11.4-16.0) gm/dL Lymphocytes # (1.0-4.8) k/uL Sodium 135 L (137-145) mmol/L Carbon Dioxide 16 L (22-30) mmol/L BUN 6 L (7-17) mg/dL Glucose 162 H (74-99) mg/dL POC Glucose (mg/dL) 166 H 145 H (70-110) mg/dL Calcium 8.3 L (8.4-10.2) mg/dL Cortisol (3.1-22.4) UG/DL
--- NOTE | 2024-04-29 16:04 | P.PN ---
Subjective Progress Note Date: 04/29/24 Patient is a 69-year-old female with past medical history significant for sqx-osdbfdw-qeypxelmc diabetes mellitus, hypertension, hyperlipidemia presents to the emergency department with nausea/vomiting, diarrhea, decreased appetite since December gradually worsening over the last few weeks. 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 She has been unable to tolerate oral intake as everything upsets her stomach. She also reports intermittent cramping pain throughout the abdomen. She has had a 50 pound weight loss since January 2024. She reports that she had a CT abdomen performed at [facility] about 2 weeks ago which showed "inflammation of the intestines" as well as an EGD with Dr. Rodriguez about a week ago. She was in Dr. Rodriguez's office today who strongly recommended that she come to the ED due to dehydration and inability to tolerate oral intake. Of note she says that January 2023 she began taking Ozempic for total of 2 months, initially prescribed 5 mg and decreased to 2.5 mg but she was unable tolerate the medication. She states that she has not fully felt like herself since then. She denies fever, chest pain, dyspnea, hematuria, hematochezia/melena, hemateme sis. Initial vitals: BP 142/79, NH 85 bpm, 97.8 F, 99% on room air Initial labs: WBC 12, hemoglobin 13.3, platelets 374, PTT 20, sodium 135, potassium 2.4, chloride 96, CO2 19, BUN 11, creatinine 0.63, glucose 193, magnesium 1.3 Initial EKG: Supraventricular rhythm with ventricular rate 82 bpm, QTc 370 ms, mild ST-depression in lead II Initial CT abdomen/pelvis: Findings suggestive of acute gastritis/enteritis in addition to colitis likely related to infectious/inflammatory etiology; nonspecific intrahepatic and extrahepatic biliary ductal dilatation; intermediate left adrenal gland nodule Urinalysis: Trace protein, 1+ glucose, 4+ ketones, 1+ bilirubin, bacteria, 23 WBC, hyaline casts 04/28/2024 patient seen and examined at bedside. No new complaints. WBC 7.9, hemoglobin 11.4, hematocrit 34.8, platelet count 281,000, sodium 134, potassium 2.8, chloride 103, bicarb 21, BUN 8, creatinine 0.59, glucose 128, calcium 8.4 04/29/2024 patient seen and examined at bedside. Had episodes of diarrhea 3-4x with associated nausea and nonbilious nonbloody vomiting. Labs today showed WBC 7.5, hemoglobin 11.1, MCV 94.9, platelet count 251,000, sodium 135, potassium 3.5, chloride 104, bicarb 16, BUN 6, creatinine 0.56, glucose 162, TSH 2.77, morning consult 34.4 Review of systems: Pertinent positives and negatives as discussed in HPI, a complete review of systems was performed and all other systems are negative. Pertinent imaging and labs reviewed. Physical examination: Vital signs reviewed General: non toxic, no distress, appears at stated age Derm: no unusual rashes/lesions, warm Head: atraumatic, normocephalic, symmetric Eyes: EOMI, anicteric sclera, pupils equal round reactive to light ENT: Nose and ears atraumatic Neck: No cervical lymphadenopathy, trachea midline, supple Mouth: no lip lesion, mucus membranes moist Cardiovascular: S1S2 reg, grade 3/6 systolic murmur present best heard on 2nd right ICS Lungs: CTA bilateral, no rhonchi, no rales, no accessory muscle use Abdominal: soft, nontender, no guarding, left lower quadrant tenderness on deep palpation Ext: muscle strength 5 out of 5 in all 4 extremities grossly, no gross muscle atrophy, no contractures, positive dorsalis pedis pulse bilateral, no edema Neuro: CN II-XI grossly intact, no gross focal neuro deficits Psych: Alert and oriented x3, appropriate affect and mood Assessment/Plan: Patient is a 69-year-old female with a past medical history significant for lmd-pzwhjbl-oouldyktp diabetes mellitus, hypertension, hyperlipidemia admitted for intractable nausea/vomiting and severe hypokalemia. #. Acute gastroenteritis #. Chronic nausea/vomiting, rule out infectious/metabolic/endocrine/gastrointestinal causes #. Anion gap metabolic acidosis -CT abdomen/pelvis: Findings suggestive of acute gastritis/enteritis in addition to colitis likely related to infectious/inflammatory etiology; nonspecific - intrahepatic and extrahepatic biliary ductal dilatation; intermediate left adrenal gland nodule -Patient had recent upper endoscopy within the last 2 weeks. Not recommended by GI to repeat at this time -Zofran 4 mg IV every 8 hours as needed for nausea -Added Reglan 5 mg IVPB every 6 hours for nausea -IVF lactated Ringer's 130cc/hour -TSH 2.77 -Morning consult 34.4 -C. difficile pending -Stool culture pending -GI consulted. Gastric emptying study scheduled for Saturday. Protonix discontinued. Initiated Pepcid 20 mg twice daily and Tums as needed -General surgery consulted. No surgical management required at this time -Diet advanced to consistent carbohydrate diet with Ensure #. Severe hypokalemia, resolved -Potassium 2.4 -> 2.6 -> 2.8 -> 3.1 -> 3.7 -EKG on admission showed supraventricular rhythm with ventricular rate 82 bpm, QTc 370 ms, mild ST-depression in lead II -Potassium chloride 60 mEq (40 mEq PO and 20 mEq IV) given in ED. Repletion with additional 80mEq potassium -Continue telemetry monitoring Chronic #. Hypertension Continue home medications once confirmed #. Depression Continue Cymbalta 30 mg p.o. at bedtime #. Hyperlipidemia Continue Lipitor 20 mg p.o. at bedtime #. Diabetes -A1c 6.8 -Hold pioglitazone and Janumet -NovoLog ISS ACHS -Glucose Accu-Cheks ACHS. Monitor for hypoglycemia DVT prophylaxis: Lovenox 40 mg subcutaneous daily GI prophylaxis: Pepcid 20 mg p.o. twice daily F: Lactated Ringer's 130 cc/h E: None for now N: consistent carbohydrate diet with Ensure A: Can ambulate with assistance CODE STATUS: Full Code Anticipated discharge place: Pending clinical course Lara Alonzo MD PGY-1/Drone Pilot Dictation was produced using [employer] dictation software. please excuse any grammatical, word or spelling errors. I have seen and evaluated the patient today. Discussed with the resident and a gree with the residents finding and plan as documented in the resident's note. Changes highlighted in blue font. Objective - Vital Signs Vital signs: Vital Signs Temp 97.8 F 04/29/24 01:32 Pulse 73 04/29/24 01:32 Resp 15 04/29/24 01:32 BP 158/82 04/29/24 01:32 Pulse Ox 99 04/29/24 01:32 FiO2 Intake & Output 04/28/24 04/29/24 04/29/24 18:59 06:59 18:59 Weight 63.503 kg Other: # Voids 2 # Bowel Movements 3 - Labs CBC & Chem 7: 04/29/24 03:45 04/29/24 03:45 Labs: Abnormal Lab Results - Last 24 Hours (Table) 04/28/24 04/28/24 04/28/24 Range/Units 09:36 11:48 21:09 RBC (3.80-5.40) m/uL Hgb (11.4-16.0) gm/dL Lymphocytes # (1.0-4.8) k/uL Sodium (137-145) mmol/L Potassium 3.1 L (3.5-5.1) mmol/L Carbon Dioxide (22-30) mmol/L BUN (7-17) mg/dL Glucose (74-99) mg/dL POC Glucose (mg/dL) 116 H 112 H (70-110) mg/dL Calcium (8.4-10.2) mg/dL 04/29/24 04/29/24 04/29/24 Range/Units 03:45 03:45 05:55 RBC 3.63 L (3.80-5.40) m/uL Hgb 11.1 L (11.4-16.0) gm/dL Lymphocytes # 0.8 L (1.0-4.8) k/uL Sodium 135 L (137-145) mmol/L Potassium (3.5-5.1) mmol/L Carbon Dioxide 16 L (22-30) mmol/L BUN 6 L (7-17) mg/dL Glucose 162 H (74-99) mg/dL POC Glucose (mg/dL) 166 H (70-110) mg/dL Calcium 8.3 L (8.4-10.2) mg/dL
[2024-04-29 17:25] LABS: Glucose,Whole Blood 115 mg/dL (70-110)
[2024-04-29 17:53] VITALS: BMI 25.6
[2024-04-29 20:43] LABS: Glucose,Whole Blood 131 mg/dL (70-110)
[2024-04-29] MEDS ORDERED: PANTOPRAZOLE 40 MG/10 ML VIAL IVP SCH (21:00)
[2024-04-30 05:14] LABS: Basophils % (A) 0 %; Eosinophils # (A) 0.1 k/uL (0-0.7); Eosinophils % (A) 1 %; HCT 37.5 % (34.0-46.0); HGB 11.8 gm/dL (11.4-16.0); Lymphocytes % (A) 15 %; MCH 29.6 pg (25.0-35.0); MCHC 31.5 g/dL (31.0-37.0); MCV 93.9 fL (80.0-100.0); Monocytes # (A) 0.4 k/uL (0-1.0); Monocytes % (A) 5 %; Neutrophils # (A) 5.5 k/uL (1.3-7.7); Neutrophils % (A) 78 %; Platelet Count 302 k/uL (150-450); Poikilocytosis Slight; RBC 3.99 m/uL (3.80-5.40); RDW 15.9 % (11.5-15.5)
[2024-04-30 05:24] LABS: African American GFR (CKD) >90 (>60 ml/min/1.73 sqM); Anion Gap 11 mmol/L; Blood Urea Nitrogen 4 mg/dL (7-17); Calcium 8.3 mg/dL (8.4-10.2); Carbon Dioxide 18 mmol/L (22-30); Chloride 103 mmol/L (98-107); Glucose 130 mg/dL (74-99); Non-African American GFR(CKD) >90 (>60 ml/min/1.73 sqM); Potassium 3.1 mmol/L (3.5-5.1); Sodium 132 mmol/L (137-145)
[2024-04-30 06:22] LABS: Glucose,Whole Blood 146 mg/dL (70-110)
[2024-04-30] MEDS: POTASSIUM CHLORIDE ER 20 MEQ TAB.ER PO STA (09:26)
--- NOTE | 2024-04-30 11:08 | P.PN ---
Subjective Progress Note Date: 04/30/24 Principal diagnosis: Nausea and vomiting This is a pleasant 69-year-old female who has had ongoing nausea and vomiting for several months, even possibly for the last year and he has followed with Dr. Rodriguez in the office and was seen yesterday. She was noted to be dehydrated and weak and was sent over to the emergency department for further evaluation. On admission she was noted to be hyponatremic and hypokalemic as well as dehydrated. Patient has had increased nausea and vomiting over the last 2 2 days vomiting up to several times a day nonbilious nonbloody emesis. Prior to that vomiting is intermittent maybe 1 to 2 days a week however she has not been eating due to stomach getting upset. States that she is lost 40 pounds over the last few months duration. She had a recent EGD 2 weeks ago at [facility] with no significant findings, colonoscopy about 2 years ago. She underwent cholecystectomy for cholecystitis on 02/21/2024 at [facility]. Today she has not had any vomiting she is taking in some liquids. States she has had constipation and some loose stools. She is denying any abdominal pain. 04/29/2024 Patient seen and examined today as a follow-up. She states she had a bad night and she had nausea and vomiting. States she continues to have an upset stomach and feels gassy. She is scheduled for a gastric emptying study on Saturday. She cannot have any proton pump inhibitors. She had a couple episodes of diarrhea yesterday, stool was sent for stool studies however apparently had spilled. She denies any blood in her stool or emesis. She has had no further emesis this morning. Cortisol level 34.4 04/30/2024 Patient seen and examined this morning as a follow-up. She went down for her gastric emptying study however apparently when patient was asked to eat scrambled eggs for the study she said she could not and started having dry heaves. Patient has been refusing to eat. No vomiting. Just states that her s tomach is upset. Objective - Vital Signs Vital signs: Vital Signs Temp 98.3 F 04/30/24 08:00 Pulse 72 04/30/24 08:00 Resp 17 04/30/24 08:00 BP 144/70 04/30/24 08:00 Pulse Ox 99 04/30/24 08:00 FiO2 Intake & Output 04/29/24 04/30/24 04/30/24 18:59 06:59 18:59 Intake Total 2019 Balance 2019 Weight 63.503 kg Intake: Intake, IV Titration 1560 Amount Lactated Ringers 1,000 ml 1560 @ 130 mls/hr IV .Q7H42M DES Rx#:[id number] Oral 460 Other: # Voids 1 1 - Exam General appearance: The patient is alert, oriented, appears in no acute distress. HET: Head is normocephalic and atraumatic. Conjunctiva pink. Sclera anicteric. Neck: Supple without lymphadenopathy. Abdomen: Soft, nontender, nondistended. Extremities: Normal skin color and turgor. No pedal edema Skin: No rashes, no jaundice Neurological: No focal deficits. Alert and oriented. - Labs CBC & Chem 7: 04/30/24 04:14 04/30/24 04:14 Labs: Abnormal Lab Results - Last 24 Hours (Table) 04/29/24 04/29/24 04/29/24 Range/Units 03:45 03:45 11:31 RDW (11.5-15.5) % Sodium (137-145) mmol/L Potassium (3.5-5.1) mmol/L Carbon Dioxide (22-30) mmol/L BUN (7-17) mg/dL Glucose (74-99) mg/dL POC Glucose (mg/dL) 145 H (70-110) mg/dL Hemoglobin A1c 6.8 H (<=6.0) % Calcium (8.4-10.2) mg/dL Cortisol 34.4 H (3.1-22.4) UG/DL 04/29/24 04/29/24 04/30/24 Range/Units 17:23 20:39 04:14 RDW 15.9 H (11.5-15.5) % Sodium (137-145) mmol/L Potassium (3.5-5.1) mmol/L Carbon Dioxide (22-30) mmol/L BUN (7-17) mg/dL Glucose (74-99) mg/dL POC Glucose (mg/dL) 115 H 131 H (70-110) mg/dL Hemoglobin A1c (<=6.0) % Calcium (8.4-10.2) mg/dL Cortisol (3.1-22.4) UG/DL 04/30/24 04/30/24 Range/Units 04:14 06:16 RDW (11.5-15.5) % Sodium 132 L (137-145) mmol/L Potassium 3.1 L (3.5-5.1) mmol/L Carbon Dioxide 18 L (22-30) mmol/L BUN 4 L (7-17) mg/dL Glucose 130 H (74-99) mg/dL POC Glucose (mg/dL) 146 H (70-110) mg/dL Hemoglobin A1c (<=6.0) % Calcium 8.3 L (8.4-10.2) mg/dL Cortisol (3.1-22.4) UG/DL Assessment and Plan (1) Nausea and vomiting Narrative/Plan: Chronic nausea and vomiting superimposed by acute episodes over the last couple days duration mixed with some chronic constipation with recent diarrhea. Symptoms have been ongoing she had recent upper endoscopy 2 weeks ago for further evaluation of the nausea and vomiting at [facility] without any significant findings. Last colonoscopy about 2 years ago. She had recent cholecystectomy done in February 2024 however symptoms had preceded that for months. Unclear etiology of nausea and vomiting. Recommend fasting cortisol level and gastric emptying study. Cortisol level normal, gastric emptying study tentatively scheduled for Saturday. There is no elevation in her LFTs no elevated bilirubin. CT abdomen pelvis showing gastritis and colitis possible secondary to infectious versus inflammatory process. Intra and extrahepatic biliary dilation likely secondary to postcholecystectomy. However patient has no leukocytosis. Treat symptomatically. Gastric emptying study ordered, could not be completed secondary to patient refusing to eat and stating that she has no appetite and upset stomach. Patient is diabetic, can consider possible diabetic gastroparesis. Discussed with patient and it is important that patient eats small amount of meals, menu given to patient to choose her foods. Will continue with symptomatic treatment with antiemetics. Current Visit: Yes Status: Acute Code(s): R11.2 - NAUSEA WITH VOMITING, UNSPECIFIED SNOMED Code(s): 45013040 (2) Hypokalemia Narrative/Plan: Continue to replace electrolytes as needed per protocol Current Visit: Yes Status: Acute Code(s): E87.6 - HYPOKALEMIA SNOMED Code(s): 88376687 (3) Hypomagnesemia Current Visit: Yes Status: Acute Code(s): E83.42 - HYPOMAGNESEMIA SNOMED Code(s): 997210705 (4) Dilated intrahepatic bile duct Narrative/Plan: Likely secondary to post cholecystectomy. No elevated LFTs. No abdominal pain reported. Current Visit: Yes Status: Acute Code(s): K83.8 - OTHER SPECIFIED DISEASES OF BILIARY TRACT SNOMED Code(s): 526461940 Plan: 1. Continue symptomatic and supportive care 2. Antiemetics as needed 3. Diet as tolerated. Patient menu to bedside so patient can pick foods that she likes and would consider eating. 4. Will add Pepcid 20 mg twice daily and Tums as needed 5. Glucerna with meals 6. Gastric emptying study ordered, study was not completed as patient refused to eat eggs and started dry heaving 7. No plans for endoscopic evaluation at this time patient had recent upper endoscopy within the last 2 weeks. 8. Replace potassium per protocol Thank you for this consultation, we will continue to follow. Dr. Rabia Rodriguez I agree with the dictator's note, documented as a scribe by Jillian Mark.
[2024-04-30 11:19] LABS: Glucose,Whole Blood 132 mg/dL (70-110)
--- NOTE | 2024-04-30 13:00 | P.PN ---
Subjective Progress Note Date: 04/30/24 SURGICAL PROGRESS NOTE CHIEF COMPLAINT: Nausea, vomiting and diarrhea HISTORY OF PRESENT ILLNESS: Patient is lying in bed. She reports feeling a little better. No abdominal pain at this time. She denies any further vomiting or diarrhea. Medicine service has advanced diet to regular consistent carboh ydrate. Afebrile. WBC is 7.0 potassium 3.1 PHYSICAL EXAM: VITAL SIGNS: Reviewed. GENERAL: Well-developed in no acute distress. ABDOMEN: Soft. Nondistended. Mild epigastric and lower abdominal discomfort with palpation NEUROLOGIC: Alert and oriented. Cranial nerves II through XII grossly intact. ASSESSMENT: 1. Abdominal pain with nausea vomiting and diarrhea. Possible gastroenteritis and colitis noted on CT scan 2. Hypokalemia 3. Hypomagnesemia 4. Recent antibiotic use for UTI 5. History of recent laparoscopic cholecystectomy February 20 PLAN: -No surgical intervention planned -Continue GI workup. They have a gastric emptying study scheduled for tomorrow Physician Metalsmith Apprentice note has been reviewed by physician. Signing provider agrees with the documented findings, assessment, and plan of care. Objective - Vital Signs Vital signs: Vital Signs Temp 98.3 F 04/30/24 08:00 Pulse 72 04/30/24 10:08 Resp 17 04/30/24 10:08 BP 144/70 04/30/24 08:00 Pulse Ox 99 04/30/24 08:00 FiO2 Intake & Output 04/29/24 04/30/24 04/30/24 18:59 06:59 18:59 Intake Total 2019 Balance 2019 Weight 63.503 kg Intake: Intake, IV Titration 1560 Amount Lactated Ringers 1,000 ml 1560 @ 130 mls/hr IV .Q7H42M [facility] Rx#:[id number] Oral 460 Other: # Voids 1 1 1 # Bowel Movements 0 - Labs CBC & Chem 7: 04/30/24 04:14 04/30/24 04:14 Labs: Abnormal Lab Results - Last 24 Hours (Table) 04/29/24 04/29/24 04/29/24 Range/Units 03:45 17:23 20:39 RDW (11.5-15.5) % Sodium (137-145) mmol/L Potassium (3.5-5.1) mmol/L Carbon Dioxide (22-30) mmol/L BUN (7-17) mg/dL Glucose (74-99) mg/dL POC Glucose (mg/dL) 115 H 131 H (70-110) mg/dL Hemoglobin A1c 6.8 H (<=6.0) % Calcium (8.4-10.2) mg/dL 04/30/24 04/30/24 04/30/24 Range/Units 04:14 04:14 06:16 RDW 15.9 H (11.5-15.5) % Sodium 132 L (137-145) mmol/L Potassium 3.1 L (3.5-5.1) mmol/L Carbon Dioxide 18 L (22-30) mmol/L BUN 4 L (7-17) mg/dL Glucose 130 H (74-99) mg/dL POC Glucose (mg/dL) 146 H (70-110) mg/dL Hemoglobin A1c (<=6.0) % Calcium 8.3 L (8.4-10.2) mg/dL 04/30/24 Range/Units 11:18 RDW (11.5-15.5) % Sodium (137-145) mmol/L Potassium (3.5-5.1) mmol/L Carbon Dioxide (22-30) mmol/L BUN (7-17) mg/dL Glucose (74-99) mg/dL POC Glucose (mg/dL) 132 H (70-110) mg/dL Hemoglobin A1c (<=6.0) % Calcium (8.4-10.2) mg/dL
--- NOTE | 2024-04-30 14:33 | P.PN ---
Subjective Progress Note Date: 04/30/24 Patient is a 69-year-old female with past medical history significant for pfi-suvwwoo-qrjnotqct diabetes mellitus, hypertension, hyperlipidemia presents to the emergency department with nausea/vomiting, diarrhea, decreased appetite since December gradually worsening over the last few weeks. 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 She has been unable to tolerate oral intake as everything upsets her stomach. She also reports intermittent cramping pain throughout the abdomen. She has had a 50 pound weight loss since January 2024. She reports that she had a CT abdomen performed at [facility] about 2 weeks ago which showed "inflammation of the intestines" as well as an EGD with Dr. Rodriguez about a week ago. She was in Dr. Rodriguez's office today who strongly recommended that she come to the ED due to dehydration and inability to tolerate oral intake. Of note she says that January 2023 she began taking Ozempic for total of 2 months, initially prescribed 5 mg and decreased to 2.5 mg but she was unable tolerate the medication. She states that she has not fully felt like herself since then. She denies fever, chest pain, dyspnea, hematuria, hematochezia/melena, hemateme sis. Initial vitals: BP 142/79, NH 85 bpm, 97.8 F, 99% on room air Initial labs: WBC 12, hemoglobin 13.3, platelets 374, PTT 20, sodium 135, potassium 2.4, chloride 96, CO2 19, BUN 11, creatinine 0.63, glucose 193, magnesium 1.3 Initial EKG: Supraventricular rhythm with ventricular rate 82 bpm, QTc 370 ms, mild ST-depression in lead II Initial CT abdomen/pelvis: Findings suggestive of acute gastritis/enteritis in addition to colitis likely related to infectious/inflammatory etiology; nonspecific intrahepatic and extrahepatic biliary ductal dilatation; intermediate left adrenal gland nodule Urinalysis: Trace protein, 1+ glucose, 4+ ketones, 1+ bilirubin, bacteria, 23 WBC, hyaline casts 04/28/2024 patient seen and examined at bedside. No new complaints. WBC 7.9, hemoglobin 11.4, hematocrit 34.8, platelet count 281,000, sodium 134, potassium 2.8, chloride 103, bicarb 21, BUN 8, creatinine 0.59, glucose 128, calcium 8.4 04/29/2024 patient seen and examined at bedside. Had episodes of diarrhea 3-4x with associated nausea and nonbilious nonbloody vomiting. Labs today showed WBC 7.5, hemoglobin 11.1, MCV 94.9, platelet count 251,000, sodium 135, potassium 3.5, chloride 104, bicarb 16, BUN 6, creatinine 0.56, glucose 162, TSH 2.77, morning consult 34.4 04/30/2024 patient seen and examined at bedside. No acute events overnight. No new complaints. still nauseated. gastric emptying scan was attempted but not done due to patient unable to tolerate any oral intake and nauseated. Labs today show WBC 7, hemoglobin 11.8, MCV 93, platelet count 102,000, sodium 132, potassium 3.1, chloride 103, bicarb 18, BUN 4, creatinine 0.53, glucose 130, calcium 8.3 Review of systems: Pertinent positives and negatives as discussed in HPI, a complete review of systems was performed and all other systems are negative. Pertinent imaging and labs reviewed. Physical examination: Vital signs reviewed General: non toxic, no distress, appears at stated age Derm: no unusual rashes/lesions, warm Head: atraumatic, normocephalic, symmetric Eyes: EOMI, anicteric sclera, pupils equal round reactive to light ENT: Nose and ears atraumatic Neck: No cervical lymphadenopathy, trachea midline, supple Mouth: no lip lesion, mucus membranes moist Cardiovascular: S1S2 reg, grade 3/6 systolic murmur present best heard on 2nd right ICS Lungs: CTA bilateral, no rhonchi, no rales, no accessory muscle use Abdominal: soft, nontender, no guarding, left lower quadrant tenderness on deep palpation Ext: muscle strength 5 out of 5 in all 4 extremities grossly, no gross muscle atrophy, no contractures, positive dorsalis pedis pulse bilateral, no edema Neuro: CN II-XI grossly intact, no gross focal neuro deficits Psych: Alert and oriented x3, appropriate affect and mood Assessment/Plan: Patient is a 69-year-old female with a past medical history significant for mls-qzkilgk-alwkirsis diabetes mellitus, hypertension, hyperlipidemia admitted for intractable nausea/vomiting and severe hypokalemia. #. Acute gastroenteritis #. Chronic nausea/vomiting, rule out infectious/metabolic/endocrine/gastrointestinal causes #. Anion gap metabolic acidosis -CT abdomen/pelvis: Findings suggestive of acute gastritis/enteritis in addition to colitis likely related to infectious/inflammatory etiology; nonspecific - intrahepatic and extrahepatic biliary ductal dilatation; intermediate left adrenal gland nodule -Patient had recent upper endoscopy within the last 2 weeks. Not recommended by GI to repeat at this time -TSH 2.77 -Morning cortisol 34.4 -Zofran 4 mg IV every 8 hours as needed for nausea -Added Reglan 5 mg IVPB every 6 hours for nausea -IVF lactated Ringer's 130cc/hour -Stool culture pending -GI consulted. Gastric emptying study scheduled for Saturday. Protonix discontinued. Initiated Pepcid 20 mg twice daily and Tums as needed -General surgery consulted. No surgical management required at this time -Diet advanced to consistent carbohydrate diet with Ensure -If all investigations are negative, possible patient is functional dyspepsia #. Hypokalemia -Potassium 2.4 -> 2.6 -> 2.8 -> 3.1 -> 3.7 -> 3.1 -EKG on admission showed supraventricular rhythm with ventricular rate 82 bpm, QTc 370 ms, mild ST-depression in lead II -Potassium chloride 60 mEq (40 mEq PO and 20 mEq IV) given in ED. Repletion with additional 80mEq potassium -Potassium chloride p.o. 40 mEq today. Recheck potassium at 4 PM -Continue telemetry monitoring Chronic #. Hypertension Continue home medications once confirmed #. Depression Continue Cymbalta 30 mg p.o. at bedtime #. Hyperlipidemia Continue Lipitor 20 mg p.o. at bedtime #. Diabetes -A1c 6.8 -Hold pioglitazone and Janumet -NovoLog ISS ACHS -Glucose Accu-Cheks ACHS. Monitor for hypoglycemia DVT prophylaxis: Lovenox 40 mg subcutaneous daily GI prophylaxis: Pepcid 20 mg p.o. twice daily F: Lactated Ringer's 130 cc/h E: None for now N: consistent carbohydrate diet with Ensure A: Can ambulate with assistance CODE STATUS: Full Code Anticipated discharge place: Pending clinical course Lara Alonzo MD PGY-1/Lead Manufacturing Engineer Dictation was produced using [employer] dictation software. please excuse any grammatical, word or spelling errors. I have seen and evaluated the patient today. Discussed with the resident and agree with the residents finding and plan as documented in the resident's note. Changes highlighted in blue font. Objective - Vital Signs Vital signs: Vital Signs Temp 98.4 F 04/30/24 01:28 Pulse 71 04/30/24 01:28 Resp 16 04/30/24 01:28 BP 145/73 04/30/24 01:28 Pulse Ox 96 04/30/24 01:28 FiO2 Intake & Output 04/29/24 04/29/24 04/30/24 06:59 18:59 06:59 Intake Total 2019 Balance 2019 Weight 63.503 kg Intake: Intake, IV Titration 1560 Amount Lactated Ringers 1,000 ml 1560 @ 130 mls/hr IV .Q7H42M [facility] Rx#:[id number] Oral 460 Other: # Voids 2 1 1 # Bowel Movements 3 - Labs CBC & Chem 7: 04/30/24 04:14 04/30/24 04:14 Labs: Abnormal Lab Results - Last 24 Hours (Table) 04/29/24 04/29/24 04/29/24 Range/Units 03:45 03:45 11:31 RDW (11.5-15.5) % Sodium (137-145) mmol/L Potassium (3.5-5.1) mmol/L Carbon Dioxide (22-30) mmol/L BUN (7-17) mg/dL Glucose (74-99) mg/dL POC Glucose (mg/dL) 145 H (70-110) mg/dL Hemoglobin A1c 6.8 H (<=6.0) % Calcium (8.4-10.2) mg/dL Cortisol 34.4 H (3.1-22.4) UG/DL 04/29/24 04/29/24 04/30/24 Range/Units 17:23 20:39 04:14 RDW 15.9 H (11.5-15.5) % Sodium (137-145) mmol/L Potassium (3.5-5.1) mmol/L Carbon Dioxide (22-30) mmol/L BUN (7-17) mg/dL Glucose (74-99) mg/dL POC Glucose (mg/dL) 115 H 131 H (70-110) mg/dL Hemoglobin A1c (<=6.0) % Calcium (8.4-10.2) mg/dL Cortisol (3.1-22.4) UG/DL 04/30/24 04/30/24 Range/Units 04:14 06:16 RDW (11.5-15.5) % Sodium 132 L (137-145) mmol/L Potassium 3.1 L (3.5-5.1) mmol/L Carbon Dioxide 18 L (22-30) mmol/L BUN 4 L (7-17) mg/dL Glucose 130 H (74-99) mg/dL POC Glucose (mg/dL) 146 H (70-110) mg/dL Hemoglobin A1c (<=6.0) % Calcium 8.3 L (8.4-10.2) mg/dL Cortisol (3.1-22.4) UG/DL
[2024-04-30 17:21] LABS: Glucose,Whole Blood 126 mg/dL (70-110)
[2024-04-30 22:02] LABS: Glucose,Whole Blood 142 mg/dL (70-110)
[2024-05-01 06:21] LABS: Glucose,Whole Blood 119 mg/dL (70-110)
[2024-05-01 07:22] LABS: Basophils % (A) 0 %; Eosinophils % (A) 1 %; HCT 36.1 % (34.0-46.0); HGB 11.2 gm/dL (11.4-16.0); Lymphocytes # (A) 0.7 k/uL (1.0-4.8); Lymphocytes % (A) 11 %; MCHC 31.1 g/dL (31.0-37.0); MCV 93.2 fL (80.0-100.0); Mean Platelet Volume 6.6; Monocytes # (A) 0.4 k/uL (0-1.0); Monocytes % (A) 7 %; Neutrophils # (A) 5.1 k/uL (1.3-7.7); Neutrophils % (A) 80 %; Platelet Count 234 k/uL (150-450); RBC 3.88 m/uL (3.80-5.40); RDW 15.3 % (11.5-15.5); WBC 6.4 k/uL (3.8-10.6)
[2024-05-01 07:58] LABS: African American GFR (CKD) >90 (>60 ml/min/1.73 sqM); Anion Gap 11 mmol/L; Blood Urea Nitrogen 2 mg/dL (7-17); Calcium 8.2 mg/dL (8.4-10.2); Carbon Dioxide 22 mmol/L (22-30); Chloride 99 mmol/L (98-107); Glucose 120 mg/dL (74-99); Non-African American GFR(CKD) >90 (>60 ml/min/1.73 sqM); Potassium 2.8 mmol/L (3.5-5.1); Sodium 132 mmol/L (137-145)
--- NOTE | 2024-05-01 09:37 | FL ---
EXAMINATION TYPE: FL UGI DATE OF EXAM: 05/01/2024 9:15 AM COMPARISON: CT CLINICAL INDICATION:Female, 69 years old with history of Intractable nausea and vomiting, weight loss ; TECHNIQUE: The procedure was explained and patient history elicited. All patient questions were ans wered prior to start of procedure. A marking devices assembler radiograph of the abdomen was also reviewed. Multiple flu oroscopic spot images of the esophagus, stomach and duodenum were obtained following ingestion of liq uid barium and EZ-gas crystals. DAP: none mGym2 FINDINGS: Multiple pelvic fluid was noted. Atherosclerosis of the arterial vasculature. Multilevel de generation changes of the spine. Limited evaluation due to patient immobility. The esophagus demonstrates tertiary contractions compat ible with esophageal dysmotility. No masses are identified. The gastric fundus is unremarkable and re mainder of the exam including the gastric antrum and the duodenum is not visualized. IMPRESSION: Limited evaluation due to patient's immobility. Esophageal dysmotility. Gastric fundus within normal limits. [facility], , 05/01/2024 9:34 AM
--- NOTE | 2024-05-01 11:17 | P.PN ---
Subjective Progress Note Date: 05/01/24 Principal diagnosis: Nausea and vomiting This is a pleasant 69-year-old female who has had ongoing nausea and vomiting for several months, even possibly for the last year and he has followed with Dr. Rodriguez in the office and was seen yesterday. She was noted to be dehydrated and weak and was sent over to the emergency department for further evaluation. On admission she was noted to be hyponatremic and hypokalemic as well as dehydrated. Patient has had increased nausea and vomiting over the last 2 2 days vomiting up to several times a day nonbilious nonbloody emesis. Prior to that vomiting is intermittent maybe 1 to 2 days a week however she has not been eating due to stomach getting upset. States that she is lost 40 pounds over the last few months duration. She had a recent EGD 2 weeks ago at [facility] with no significant findings, colonoscopy about 2 years ago. She underwent cholecystectomy for cholecystitis on 02/21/2024 at [facility]. Today she has not had any vomiting she is taking in some liquids. States she has had constipation and some loose stools. She is denying any abdominal pain. 04/29/2024 Patient seen and examined today as a follow-up. She states she had a bad night and she had nausea and vomiting. States she continues to have an upset stomach and feels gassy. She is scheduled for a gastric emptying study on Saturday. She cannot have any proton pump inhibitors. She had a couple episodes of diarrhea yesterday, stool was sent for stool studies however apparently had spilled. She denies any blood in her stool or emesis. She has had no further emesis this morning. Cortisol level 34.4 04/30/2024 Patient seen and examined this morning as a follow-up. She went down for her gastric emptying study however apparently when patient was asked to eat scrambled eggs for the study she said she could not and started having dry heaves. Patient has been refusing to eat. No vomiting. Just states that her s tomach is upset. 05/01/2024 Patient seen and examined this morning as a follow-up. She continues to stage that she is not eating. She is drinking her Ensure drinks. No nausea and vomiting. She did have some loose stools yesterday, nonbloody. Discussed with patient concerns for depression and patient states that she is depressed. This likely could be playing a role into why patient is not eating and she agrees. Patient is agreeable to see psychiatrist. She continues to deny any abdominal pain. Objective - Vital Signs Vital signs: Vital Signs Temp 99.3 F 05/01/24 01:52 Pulse 79 05/01/24 01:52 Resp 15 05/01/24 01:52 BP 141/84 05/01/24 01:52 Pulse Ox 99 05/01/24 01:52 FiO2 Intake & Output 04/30/24 04/30/24 05/01/24 06:59 18:59 06:59 Intake Total 100 Output Total 2 Balance 100 -2 Intake: Oral 100 Output: Stool 2 Other: # Voids 1 1 # Bowel Movements 0 - Exam General appearance: The patient is alert, oriented, appears in no acute distress. Patient appears sad, withdrawn. HET: Head is normocephalic and atraumatic. Conjunctiva pink. Sclera anicteric. Neck: Supple without lymphadenopathy. Abdomen: Soft, nontender, nondistended. Extremities: Normal skin color and turgor. No pedal edema Skin: No rashes, no jaundice Neurological: No focal deficits. Alert and oriented. - Labs CBC & Chem 7: 05/01/24 07:08 05/01/24 07:08 Labs: Abnormal Lab Results - Last 24 Hours (Table) 04/30/24 04/30/24 04/30/24 Range/Units 11:18 17:20 22:00 POC Glucose (mg/dL) 132 H 126 H 142 H (70-110) mg/dL 05/01/24 Range/Units 06:20 POC Glucose (mg/dL) 119 H (70-110) mg/dL Assessment and Plan (1) Nausea and vomiting Narrative/Plan: Chronic nausea and vomiting superimposed by acute episodes over the last couple days duration mixed with some chronic constipation with recent diarrhea. Symptoms have been ongoing she had recent upper endoscopy 2 weeks ago for further evaluation of the nausea and vomiting at [facility] without any significant findings. Last colonoscopy about 2 years ago. She had recent cholecystectomy done in February 2024 however symptoms had preceded that for months. Unclear etiology of nausea and vomiting. Recommend fasting cortisol level and gastric emptying study. Cortisol level normal, gastric emptying study tentatively scheduled for Saturday. There is no elevation in her LFTs no elevated bilirubin. CT abdomen pelvis showing gastritis and colitis possible secondary to infectious versus inflammatory process. Intra and extrahepatic biliary dilation likely secondary to postcholecystectomy. However patient has no leukocytosis. Treat symptomatically. Gastric emptying study ordered, could not be completed secondary to patient refusing to eat and stating that she has no appetite and upset stomach. Patient is diabetic, can consider possible diabetic gastroparesis. Discussed with patient and it is important that patient eats small amount of meals, menu given to patient to choose her foods. Will continue with symptomatic treatment with antiemetics. Current Visit: Yes Status: Acute Code(s): R11.2 - NAUSEA WITH VOMITING, UNSPECIFIED SNOMED Code(s): 07125318 (2) Hypokalemia Narrative/Plan: Continue to replace electrolytes as needed per protocol Current Visit: Yes Status: Acute Code(s): E87.6 - HYPOKALEMIA SNOMED Code(s): 02011502 (3) Hypomagnesemia Current Visit: Yes Status: Acute Code(s): E83.42 - HYPOMAGNESEMIA SNOMED Code(s): 235192603 (4) Dilated intrahepatic bile duct Narrative/Plan: Likely secondary to post cholecystectomy. No elevated LFTs. No abdominal pain reported. Current Visit: Yes Status: Acute Code(s): K83.8 - OTHER SPECIFIED DISEASES OF BILIARY TRACT SNOMED Code(s): 491772859 Plan: 1. Continue symptomatic and supportive care 2. Antiemetics as needed 3. Diet as tolerated. Patient menu to bedside so patient can pick foods that she likes and would consider eating. 4. Protonix 40 mg twice daily and Tums as needed 5. Glucerna with meals 6. Gastric emptying study ordered, study was not completed as patient refused to eat eggs and started dry heaving 7. No plans for endoscopic evaluation at this time patient had recent upper endoscopy within the last 2 weeks. 8. Replace potassium per protocol 9. Upper GI and small bowel series ordered, limited evaluation secondary to patient able to complete study. Esophageal dysmotility noted gastric fundus within normal limits. 10. Will consult psychiatry secondary to depression and not eating Thank you for this consultation, there will be no available gastroenterology through the weekend. Our services will return on Saturday. Patient can be discharged from gastroenterology standpoint once medically stable and follow-up as an outpatient. Dr. Rabia Rodriguez I agree with the dictator's note, documented as a scribe by Jillian Mark.
--- NOTE | 2024-05-01 11:35 | P.PN ---
Subjective Progress Note Date: 05/01/24 SURGICAL PROGRESS NOTE CHIEF COMPLAINT: Nausea, vomiting and diarrhea HISTORY OF PRESENT ILLNESS: Patient has no new complaints. Upper GI reports limited evaluation due to patient's immobility. Esophageal dysmotility. Gastric fundus within normal limits. Afebrile. WBC 6.4 Hgb 11.2 platelets 234 potassium 2.8 magnesium 1.2 PHYSICAL EXAM: VITAL SIGNS: Reviewed. GENERAL: Well-developed in no acute distress. ABDOMEN: Soft. Nondistended. NEUROLOGIC: Alert and oriented. Cranial nerves II through XII grossly intact. ASSESSMENT: 1. Abdominal pain with nausea vomiting and diarrhea. resolved. Possible gastroenteritis and colitis noted on CT scan. 2. Esophageal dysmotility noted on upper GI 3. Hypokalemia 4. Hypomagnesemia 5. History of recent laparoscopic cholecystectomy February 21, 2024 PLAN: -No surgical intervention planned -Continue to correct electrolytes -GI service has ordered a psych consult for depression Physician Rf Manager note has been reviewed by physician. Signing provider agrees with the documented findings, assessment, and plan of care. Objective - Vital Signs Vital signs: Vital Signs Temp 98.7 F 05/01/24 07:08 Pulse 82 05/01/24 07:08 Resp 20 05/01/24 07:08 BP 159/83 05/01/24 07:08 Pulse Ox 96 05/01/24 07:08 FiO2 Intake & Output 04/30/24 05/01/24 05/01/24 18:59 06:59 18:59 Intake Total 100 540 Output Total 2 Balance 100 538 Intake: Oral 100 540 Output: Stool 2 Other: # Voids 1 2 2 # Bowel Movements 0 2 1 - Labs CBC & Chem 7: 05/01/24 07:08 05/01/24 07:08 Labs: Abnormal Lab Results - Last 24 Hours (Table) 04/30/24 04/30/24 05/01/24 Range/Units 17:20 22:00 06:20 Hgb (11.4-16.0) gm/dL Lymphocytes # (1.0-4.8) k/uL Sodium (137-145) mmol/L Potassium (3.5-5.1) mmol/L BUN (7-17) mg/dL Creatinine (0.52-1.04) mg/dL Glucose (74-99) mg/dL POC Glucose (mg/dL) 126 H 142 H 119 H (70-110) mg/dL Calcium (8.4-10.2) mg/dL Magnesium (1.6-2.3) mg/dL 05/01/24 05/01/24 05/01/24 Range/Units 07:08 07:08 07:08 Hgb 11.2 L (11.4-16.0) gm/dL Lymphocytes # 0.7 L (1.0-4.8) k/uL Sodium 132 L (137-145) mmol/L Potassium 2.8 L (3.5-5.1) mmol/L BUN 2 L (7-17) mg/dL Creatinine 0.51 L (0.52-1.04) mg/dL Glucose 120 H (74-99) mg/dL POC Glucose (mg/dL) (70-110) mg/dL Calcium 8.2 L (8.4-10.2) mg/dL Magnesium 1.2 L (1.6-2.3) mg/dL
[2024-05-01 11:38] LABS: Glucose,Whole Blood 123 mg/dL (70-110)
[2024-05-01] MEDS: POTASSIUM CHLORIDE 10 MEQ in WATER FOR INJECTION 1 100ML.BAG IVPB SCH (12:11)
--- NOTE | 2024-05-01 13:17 | P.PN ---
Subjective Progress Note Date: 05/01/24 Patient is a 69-year-old female with past medical history significant for mio-swchpsl-fkcpceenu diabetes mellitus, hypertension, hyperlipidemia presents to the emergency department with nausea/vomiting, diarrhea, decreased appetite since December gradually worsening over the last few weeks. 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 She has been unable to tolerate oral intake as everything upsets her stomach. She also reports intermittent cramping pain throughout the abdomen. She has had a 50 pound weight loss since January 2024. She reports that she had a CT abdomen performed at [facility] about 2 weeks ago which showed "inflammation of the intestines" as well as an EGD with Dr. Rodriguez about a week ago. She was in Dr. Rodriguez's office today who strongly recommended that she come to the ED due to dehydration and inability to tolerate oral intake. Of note she says that January 2023 she began taking Ozempic for total of 2 months, initially prescribed 5 mg and decreased to 2.5 mg but she was unable tolerate the medication. She states that she has not fully felt like herself since then. She denies fever, chest pain, dyspnea, hematuria, hematochezia/melena, hemateme sis. Initial vitals: BP 142/79, WA 85 bpm, 97.8 F, 99% on room air Initial labs: WBC 12, hemoglobin 13.3, platelets 374, PTT 20, sodium 135, potassium 2.4, chloride 96, CO2 19, BUN 11, creatinine 0.63, glucose 193, magnesium 1.3 Initial EKG: Supraventricular rhythm with ventricular rate 82 bpm, QTc 370 ms, mild ST-depression in lead II Initial CT abdomen/pelvis: Findings suggestive of acute gastritis/enteritis in addition to colitis likely related to infectious/inflammatory etiology; nonspecific intrahepatic and extrahepatic biliary ductal dilatation; intermediate left adrenal gland nodule Urinalysis: Trace protein, 1+ glucose, 4+ ketones, 1+ bilirubin, bacteria, 23 WBC, hyaline casts 04/28/2024 patient seen and examined at bedside. No new complaints. WBC 7.9, hemoglobin 11.4, hematocrit 34.8, platelet count 281,000, sodium 134, potassium 2.8, chloride 103, bicarb 21, BUN 8, creatinine 0.59, glucose 128, calcium 8.4 04/29/2024 patient seen and examined at bedside. Had episodes of diarrhea 3-4x with associated nausea and nonbilious nonbloody vomiting. Labs today showed WBC 7.5, hemoglobin 11.1, MCV 94.9, platelet count 251,000, sodium 135, potassium 3.5, chloride 104, bicarb 16, BUN 6, creatinine 0.56, glucose 162, TSH 2.77, morning consult 34.4 04/30/2024 patient seen and examined at bedside. No acute events overnight. No new complaints. still nauseated. gastric emptying scan was attempted but not done due to patient unable to tolerate any oral intake and nauseated. Labs today show WBC 7, hemoglobin 11.8, MCV 93, platelet count 102,000, sodium 132, potassium 3.1, chloride 103, bicarb 18, BUN 4, creatinine 0.53, glucose 130, calcium 8.3 05/01/2024 Patient seen and examined at bedside. No new complaints. Labs show WBC 6.4, hemoglobin 11.2, MCV 93.2, platelet count 234,000, sodium 132, potassium 2.8, BUN 2, creatinine 0.51, chloride 99, bicarb 22, glucose 120 calcium 8.2, magnesium 1.8. Upper GI series showed limited evaluation due to patient's immobility. Esophageal dysmotility. Gastric fundus within normal limits. Review of systems: Pertinent positives and negatives as discussed in HPI, a complete review of systems was performed and all other systems are negative. Pertinent imaging and labs reviewed. Physical examination: Vital signs reviewed General: non toxic, no distress, appears at stated age Derm: no unusual rashes/lesions, warm Head: atraumatic, normocephalic, symmetric Eyes: EOMI, anicteric sclera, pupils equal round reactive to light ENT: Nose and ears atraumatic Neck: No cervical lymphadenopathy, trachea midline, supple Mouth: no lip lesion, mucus membranes moist Cardiovascular: S1S2 reg, grade 3/6 systolic murmur present best heard on 2nd right ICS Lungs: CTA bilateral, no rhonchi, no rales, no accessory muscle use Abdominal: soft, nontender, no guarding, nontender, bowel sounds appreciated Ext: muscle strength 5 out of 5 in all 4 extremities grossly, no gross muscle atrophy, no contractures, positive dorsalis pedis pulse bilateral, no edema Neuro: CN II-XI grossly intact, no gross focal neuro deficits Psych: Alert and oriented x3, appropriate affect and mood Assessment/Plan: Patient is a 69-year-old female with a past medical history significant for mer-itxxvql-lcnhhtykc diabetes mellitus, hypertension, hyperlipidemia admitted for intractable nausea/vomiting and severe hypokalemia. Patient found to have esophageal dysmotility on imaging. Admitted to [facility] ressed. #. Esophageal dysmotility #. Chronic nausea/vomiting likely due to above #. Functional dyspepsia #. Anion gap metabolic acidosis, resolved -Upper GI series showed limited evaluation due to patient's immobility. Esophageal dysmotility. Gastric fundus within normal limits. CT abdomen/pelvis: Findings suggestive of acute gastritis/enteritis in addition to colitis likely related to infectious/inflammatory etiology; nonspecific - intrahepatic and extrahepatic biliary ductal dilatation; intermediate left adrenal gland nodule -Patient had recent upper endoscopy within the last 2 weeks. Not recommended by GI to repeat at this time -TSH 2.77 -Morning cortisol 34.4 -Zofran 4 mg IV every 8 hours as needed for nausea -Added Reglan 5 mg IVPB every 6 hours for nausea -IVF lactated Ringer's 130cc/hour -GI consulted. Unable to tolerate gastric emptying study. Protonix discontinued. Initiated Pepcid 20 mg twice daily and Tums as needed -General surgery consulted. No surgical management required at this time -Diet advanced to consistent carbohydrate diet with Ensure -Patient advised to have small meals and properly chew foods #. Depression #. Low appetite secondary to above -Per GI, patient reported that she is depressed which is causing her to have decreased appetite -Psychiatry consulted #. Hypokalemia -Potassium 2.4 -> 2.6 -> 2.8 -> 3.1 -> 3.7 -> 3.1 -> 2.8 -EKG on admission showed supraventricular rhythm with ventricular rate 82 bpm, QTc 370 ms, mild ST-depression in lead II -Potassium chloride p.o. 60 mEq today. Recheck potassium at 4 PM -Continue telemetry monitoring -Check mag. Replete if low #. Hypomagnesemia -Mag 1.2 -Replete 4 gm IVPB -Check Mag in the AM Chronic #. Hypertension Continue home medications once confirmed #. Depression Continue Cymbalta 30 mg p.o. at bedtime #. Hyperlipidemia Continue Lipitor 20 mg p.o. at bedtime #. Diabetes -A1c 6.8 -Hold pioglitazone and Janumet -NovoLog ISS ACHS -Glucose Accu-Cheks ACHS. Monitor for hypoglycemia DVT prophylaxis: Lovenox 40 mg subcutaneous daily GI prophylaxis: Pepcid 20 mg p.o. twice daily F: Lactated Ringer's 130 cc/h E: None for now N: consistent carbohydrate diet with Ensure A: Can ambulate with assistance CODE STATUS: Full Code Anticipated discharge place: Pending clinical course Lara Alonzo MD PGY-1/Manager Business Operations Dictation was produced using [employer] dictation software. please excuse any grammatical, word or spelling errors. Insert management I have seen and evaluated the patient today. Discussed with the resident and agree with the residents finding and plan as documented in the resident's note. Changes highlighted in blue font. Objective - Vital Signs Vital signs: Vital Signs Temp 99.3 F 05/01/24 01:52 Pulse 79 05/01/24 01:52 Resp 15 05/01/24 01:52 BP 141/84 05/01/24 01:52 Pulse Ox 99 05/01/24 01:52 FiO2 Intake & Output 04/30/24 04/30/24 05/01/24 06:59 18:59 06:59 Intake Total 100 Output Total 2 Balance 100 -2 Intake: Oral 100 Output: Stool 2 Other: # Voids 1 1 # Bowel Movements 0 - Labs CBC & Chem 7: 05/01/24 07:08 05/01/24 07:08 Labs: Abnormal Lab Results - Last 24 Hours (Table) 04/30/24 04/30/24 04/30/24 Range/Units 11:18 17:20 22:00 POC Glucose (mg/dL) 132 H 126 H 142 H (70-110) mg/dL 05/01/24 Range/Units 06:20 POC Glucose (mg/dL) 119 H (70-110) mg/dL
--- NOTE | 2024-05-01 13:33 | P.PN ---
Progress Note - Text Progress Note Date: 05/01/24 IDENTIFYING DATA: This patient is a 69-year-old female, retired and REASON FOR REFERRAL: Psychiatry was consulted for depression, not eating, GI testing has been negative to date HISTORY OF PRESENT ILLNESS: The patient presented to the hospital with predominant nausea and vomiting for the past 2 months. Patient recently did have a cholecystectomy. CT abdomen and pelvis revealed acute gastritis, enteritis and colitis. Lab work revealed hypokalemia and hypomagnesemia. Surgery did not recommend any surgical interventions. Patient has been refusing to eat, appearing depressed with a 40 pound weight loss over the last few months. Patient seen and evaluated in her room. She reports feeling depressed for the past several months. Symptoms include sleep disturbance, poor appetite, low energy, low mood, difficulty with concentrating. Patient also reports feeling anxious in addition to experiencing nausea at this time. She states she has been taking Cymbalta "for a long time" for depression. At this time patient denies any suicidal or homicidal ideations, intent or plan. Patient denies any auditory, visual hallucinations and denies any paranoia or delusions. Patients admits to using no substances. PAST PSYCHIATRIC HISTORY: Patient has a history of depression. Patient is currently prescribed Cymbalta 30 mg at bedtime. Patient denies any previous psychiatric hospitalizations. Patient denies any psychiatric outpatient follow- up. Patient denies any history of suicide attempts in the past. PAST MEDICAL HISTORY: Diabetes mellitus, dyslipidemia, hypertension. ALLERGIES: as per EMR. CHEMICAL DEPENDENCY HISTORY: as per HPI. FAMILY PSYCHIATRIC/SUBSTANCE USE HISTORY: Denies SOCIAL HISTORY: Patient is and has 2 kids. She states she is retired. MENTAL STATUS EXAM: General Appearance: Patient appears to be stated age is alert, and semi-cooperat eloisa. Patient appears to have fair hygiene and grooming wearing hospital gown with poor eye contact. Behavior: Patient appeared upset due to pain from the IV in her hand Speech: Patient's speech is fluent and nonpressured. Mood/Affect: Patient reports their mood is "okay", affect is congruent, flat Suicidality/Homicidality: Patient denies having any suicidal or homicidal ideation intent or plan. Perceptions: Patient denies any visual hallucinations and denies any auditory hallucinations Though content/process: There is no evidence of any delusional thought content and thought process is linear and logical. Memory and concentration: AOX3, grossly intact for the purposes of this session. Can spell "WORLD" backwards Judgment and insight: Fair IMPRESSIONS: Major depressive disorder PLAN: -At this time patient DOES NOT meet criteria for inpatient psychiatric admission. -Would recommend the following medication changes/additions: Start Remeron 7.5 mg at bedtime for mood/sleep/appetite, continue Cymbalta 30 mg at bedtime for depression -boom stick worker to provide patient with outpatient mental health/psychiatry resources for appropriate follow up upon discharge -Will continue to follow along -Please contact with any questions.
[2024-05-01 16:43] LABS: Glucose,Whole Blood 99 mg/dL (70-110)
[2024-05-01 21:10] LABS: Glucose,Whole Blood 98 mg/dL (70-110)
[2024-05-01] MEDS: PANTOPRAZOLE 40 MG/10 ML VIAL IVP SCH (21:56)
[2024-05-01] MEDS: MIRTAZAPINE 15 MG TAB PO SCH (21:57)
[2024-05-02] MEDS: MAGNESIUM SULFATE-D5W PMX 1 GM in DEXTROSE/WATER 1 100ML.BAG IVPB SCH ×2 (03:01→04:40)
[2024-05-02] MEDS: POTASSIUM CHLORIDE 10 MEQ in WATER FOR INJECTION 1 100ML.BAG IVPB SCH (03:06)
[2024-05-02 05:58] LABS: Basophils % (A) 1 %; Eosinophils % (A) 1 %; HCT 32.1 % (34.0-46.0); HGB 10.5 gm/dL (11.4-16.0); Lymphocytes # (A) 0.6 k/uL (1.0-4.8); Lymphocytes % (A) 16 %; MCH 29.8 pg (25.0-35.0); MCHC 32.8 g/dL (31.0-37.0); MCV 90.9 fL (80.0-100.0); Mean Platelet Volume 8.1; Monocytes # (A) 0.4 k/uL (0-1.0); Monocytes % (A) 11 %; Neutrophils # (A) 2.7 k/uL (1.3-7.7); Neutrophils % (A) 70 %; Platelet Count 202 k/uL (150-450); RBC 3.53 m/uL (3.80-5.40); RDW 15.7 % (11.5-15.5); WBC 3.8 k/uL (3.8-10.6)
[2024-05-02 06:14] LABS: Glucose,Whole Blood 114 mg/dL (70-110)
[2024-05-02 06:17] LABS: African American GFR (CKD) >90 (>60 ml/min/1.73 sqM); Anion Gap 7 mmol/L; Blood Urea Nitrogen <2 mg/dL (7-17); Calcium 7.8 mg/dL (8.4-10.2); Carbon Dioxide 29 mmol/L (22-30); Chloride 93 mmol/L (98-107); Glucose 90 mg/dL (74-99); Non-African American GFR(CKD) >90 (>60 ml/min/1.73 sqM); Sodium 129 mmol/L (137-145)
[2024-05-02] MEDS: SODIUM CHLORIDE 0.9% 1,000 ML IV SCH (09:47)
[2024-05-02 11:54] LABS: Glucose,Whole Blood 130 mg/dL (70-110)
--- NOTE | 2024-05-02 11:55 | P.PN ---
Subjective Progress Note Date: 05/02/24 Patient is a 69-year-old female with past medical history significant for saq-yngakua-dkfvsmore diabetes mellitus, hypertension, hyperlipidemia presents to the emergency department with nausea/vomiting, diarrhea, decreased appetite since December gradually worsening over the last few weeks. 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 She has been unable to tolerate oral intake as everything upsets her stomach. She also reports intermittent cramping pain throughout the abdomen. She has had a 50 pound weight loss since January 2024. She reports that she had a CT abdomen performed at [facility] about 2 weeks ago which showed "inflammation of the intestines" as well as an EGD with Dr. Rodriguez about a week ago. She was in Dr. Rodriguez's office today who strongly recommended that she come to the ED due to dehydration and inability to tolerate oral intake. Of note she says that January 2023 she began taking Ozempic for total of 2 months, initially prescribed 5 mg and decreased to 2.5 mg but she was unable tolerate the medication. She states that she has not fully felt like herself since then. She denies fever, chest pain, dyspnea, hematuria, hematochezia/melena, hemateme sis. Initial vitals: BP 142/79, AZ 85 bpm, 97.8 F, 99% on room air Initial labs: WBC 12, hemoglobin 13.3, platelets 374, PTT 20, sodium 135, potassium 2.4, chloride 96, CO2 19, BUN 11, creatinine 0.63, glucose 193, magnesium 1.3 Initial EKG: Supraventricular rhythm with ventricular rate 82 bpm, QTc 370 ms, mild ST-depression in lead II Initial CT abdomen/pelvis: Findings suggestive of acute gastritis/enteritis in addition to colitis likely related to infectious/inflammatory etiology; nonspecific intrahepatic and extrahepatic biliary ductal dilatation; intermediate left adrenal gland nodule Urinalysis: Trace protein, 1+ glucose, 4+ ketones, 1+ bilirubin, bacteria, 23 WBC, hyaline casts 04/28/2024 patient seen and examined at bedside. No new complaints. WBC 7.9, hemoglobin 11.4, hematocrit 34.8, platelet count 281,000, sodium 134, potassium 2.8, chloride 103, bicarb 21, BUN 8, creatinine 0.59, glucose 128, calcium 8.4 04/29/2024 patient seen and examined at bedside. Had episodes of diarrhea 3-4x with associated nausea and nonbilious nonbloody vomiting. Labs today showed WBC 7.5, hemoglobin 11.1, MCV 94.9, platelet count 251,000, sodium 135, potassium 3.5, chloride 104, bicarb 16, BUN 6, creatinine 0.56, glucose 162, TSH 2.77, morning consult 34.4 04/30/2024 patient seen and examined at bedside. No acute events overnight. No new complaints. still nauseated. gastric emptying scan was attempted but not done due to patient unable to tolerate any oral intake and nauseated. Labs today show WBC 7, hemoglobin 11.8, MCV 93, platelet count 102,000, sodium 132, potassium 3.1, chloride 103, bicarb 18, BUN 4, creatinine 0.53, glucose 130, calcium 8.3 05/01/2024 Patient seen and examined at bedside. No new complaints. Labs show WBC 6.4, hemoglobin 11.2, MCV 93.2, platelet count 234,000, sodium 132, potassium 2.8, BUN 2, creatinine 0.51, chloride 99, bicarb 22, glucose 120 calcium 8.2, magnesium 1.8. Upper GI series showed limited evaluation due to patient's immobility. Esophageal dysmotility. Gastric fundus within normal limits. 05/02/2024 patient seen and examined at bedside. No acute events overnight. No new complaints. Improved abdominal pain, no longer nauseated. She says her mood is better and she is regaining her appetite. Labs today show WBC 3.8, hemoglobin 10.5, MCV 90.9, platelet count 202,000, sodium 129, potassium 3, chloride 93, bicarb 29, BUN less than 2, creatinine 0.45, calcium 7.8, glucose 90 Review of systems: Pertinent positives and negatives as discussed in HPI, a complete review of systems was performed and all other systems are negative. Pertinent imaging and labs reviewed. Physical examination: Vital signs reviewed General: non toxic, no distress, appears at stated age, frail looking Derm: no unusual rashes/lesions, warm Head: atraumatic, normocephalic, symmetric Eyes: EOMI, anicteric sclera, pupils equal round reactive to light ENT: Nose and ears atraumatic Neck: No cervical lymphadenopathy, trachea midline, supple Mouth: no lip lesion, mucus membranes moist Cardiovascular: S1S2 reg, grade 3/6 systolic murmur present best heard on 2nd right ICS Lungs: CTA bilateral, no rhonchi, no rales, no accessory muscle use Abdominal: soft, nontender, no guarding, nontender, bowel sounds appreciated Ext: muscle strength 5 out of 5 in all 4 extremities grossly, no gross muscle atrophy, no contractures, positive dorsalis pedis pulse bilateral, no edema Neuro: CN II-XI grossly intact, no gross focal neuro deficits Psych: Alert and oriented x3, appropriate affect and mood Assessment/Plan: Patient is a 69-year-old female with a past medical history significant for gqs-wjqvasr-bnlvrauee diabetes mellitus, hypertension, hyperlipidemia admitted for intractable nausea/vomiting and severe hypokalemia and required multiple electrolyte corrections. Patient found to have esophageal dysmotility on imaging. Admitted to feeling depressed. #. Hyponatremia -Sodium 129 -Likely due to poor oral intake -Switched IVF to normal saline 130 cc/h -Monitor BMP -Encourage oral intake #. Hypokalemia -Potassium 2.4 -> 2.6 -> 2.8 -> 3.1 -> 3.7 -> 3.1 -> 2.8 -> 3.0 -EKG on admission showed supraventricular rhythm with ventricular rate 82 bpm, QTc 370 ms, mild ST-depression in lead II -Will replete 50 mg minutes of potassium after magnesium is rechecked -Continue telemetry monitoring -Check mag. Replete if low #. Hypomagnesemia -Mag 1.2 -> 1.1 -Replete 40gm IVPB finished at 7am -Check Mag at 12NN and replete if neeeded #. Esophageal dysmotility #. Chronic nausea/vomiting likely due to above #. Anion gap metabolic acidosis, resolved -Upper GI series showed limited evaluation due to patient's immobility. Esophageal dysmotility. Gastric fundus within normal limits. CT abdomen/pelvis: Findings suggestive of acute gastritis/enteritis in addition to colitis likely related to infectious/inflammatory etiology; nonspecific - intrahepatic and extrahepatic biliary ductal dilatation; intermediate left adrenal gland nodule -Patient had recent upper endoscopy within the last 2 weeks. Not recommended by GI to repeat at this time -TSH 2.77 -Morning cortisol 34.4 -Zofran 4 mg IV every 8 hours as needed for nausea -Added Reglan 5 mg IVPB every 6 hours for nausea -Discontinued IVF lactated Ringer's 130cc/hour -Continue with IVF 0.9 NS 130cc/hr -GI consulted. Unable to tolerate gastric emptying study. Protonix discontinued. Initiated Pepcid 20 mg twice daily and Tums as needed -General surgery consulted. No surgical management required at this time -Diet advanced to consistent carbohydrate diet with Ensure -Patient advised to have small meals and properly chew foods #. Depression #. Low appetite secondary to above -Per GI, patient reported that she is depressed which is causing her to have decreased appetite -Psychiatry consulted. Initiated Remeron 75 mg at bedtime. Advised to continue Cymbalta 30 mg at bedtime. Chronic #. Hypertension Continue home medications once confirmed #. Depression Continue Cymbalta 30 mg p.o. at bedtime #. Hyperlipidemia Continue Lipitor 20 mg p.o. at bedtime #. Diabetes -A1c 6.8 -Hold pioglitazone and Janumet -NovoLog ISS ACHS -Glucose Accu-Cheks ACHS. Monitor for hypoglycemia DVT prophylaxis: Lovenox 40 mg subcutaneous daily GI prophylaxis: Pepcid 20 mg p.o. twice daily F: 0.9 normal saline 130 cc/h E: None for now N: consistent carbohydrate diet with Ensure A: Can ambulate with assistance CODE STATUS: Full Code Anticipated discharge place: Pending clinical course Lara Alonzo MD PGY-1/Adolescent Psychiatrist Dictation was produced using [employer] dictation software. please excuse any gram matical, word or spelling errors. I have seen and evaluated the patient today. Discussed with the resident and agree with the residents finding and plan as documented in the resident's note. Changes highlighted in blue font. Objective - Vital Signs Vital signs: Vital Signs Temp 98.7 F 05/02/24 01:38 Pulse 78 05/02/24 01:38 Resp 15 05/02/24 01:38 BP 151/65 05/02/24 01:38 Pulse Ox 93 L 05/02/24 01:38 FiO2 Intake & Output 05/01/24 05/02/24 05/02/24 18:59 06:59 18:59 Weight 63.503 kg Other: # Voids 3 4 # Bowel Movements 1 3 - Labs CBC & Chem 7: 05/02/24 04:54 05/02/24 04:54 Labs: Abnormal Lab Results - Last 24 Hours (Table) 05/01/24 05/01/24 05/01/24 Range/Units 07:08 07:08 11:37 RBC (3.80-5.40) m/uL Hgb (11.4-16.0) gm/dL Hct (34.0-46.0) % RDW (11.5-15.5) % Lymphocytes # (1.0-4.8) k/uL Sodium 132 L (137-145) mmol/L Potassium 2.8 L (3.5-5.1) mmol/L Chloride (98-107) mmol/L BUN 2 L (7-17) mg/dL Creatinine 0.51 L (0.52-1.04) mg/dL Glucose 120 H (74-99) mg/dL POC Glucose (mg/dL) 123 H (70-110) mg/dL Calcium 8.2 L (8.4-10.2) mg/dL Magnesium 1.2 L (1.6-2.3) mg/dL 05/02/24 05/02/24 05/02/24 Range/Units 04:54 04:54 06:12 RBC 3.53 L (3.80-5.40) m/uL Hgb 10.5 L (11.4-16.0) gm/dL Hct 32.1 L (34.0-46.0) % RDW 15.7 H (11.5-15.5) % Lymphocytes # 0.6 L (1.0-4.8) k/uL Sodium 129 L (137-145) mmol/L Potassium 3.0 L (3.5-5.1) mmol/L Chloride 93 L (98-107) mmol/L BUN <2 L (7-17) mg/dL Creatinine 0.45 L (0.52-1.04) mg/dL Glucose (74-99) mg/dL POC Glucose (mg/dL) 114 H (70-110) mg/dL Calcium 7.8 L (8.4-10.2) mg/dL Magnesium (1.6-2.3) mg/dL
[2024-05-02] MEDS: POTASSIUM CHLORIDE ER 10 MEQ TAB.ER.PRT PO STA (15:26)
[2024-05-02] MEDS: POTASSIUM CHLORIDE ER 20 MEQ TAB.ER PO STA (15:27)
[2024-05-02 16:53] LABS: Glucose,Whole Blood 180 mg/dL (70-110)
--- NOTE | 2024-05-02 17:01 | P.PN ---
Subjective Progress Note Date: 05/02/24 CHIEF COMPLAINT: Intractable nausea vomiting HISTORY OF PRESENT ILLNESS: The patient is a 69-year-old female being seen for intractable nausea and vomiting. She reports tolerating large pills today. Karen artis is at bedside that is cutting up her chicken and potatoes. Patient denies any dysphagia or chest pain or food getting stuck in her throat at this time. Per records, psychiatry were consulted for depression. ROS: No fevers or chills. No new chest pain. No productive sputum PHYSICAL EXAM: VITAL SIGNS: Reviewed CONSTITUTIONAL: Well developed and in no acute distress. EYES: Conjuctivae without sclera icterus. Extraocular movements grossly intact. HEAD, EARS, NOSE, THROAT: Moist buccal mucosa. Head is atraumatic, normocephalic. Hears conversational speech. No nasal drainage. RESPIRATORY: Non-labored respirations and equal bilateral excursions. CARDIOVASCULAR: Palpable 2+ radial pulses. ABDOMEN: Nontender. MUSCULOSKELETAL: No gross deformity of the lower extremities noted. No clubbing. No cyanosis. SKIN: Good skin turgor. Well perfused. NEUROLOGIC: Cranial nerves II through XII grossly intact. No focal or lateralizing signs. PSYCH: Flat affect. Alert and oriented to person, place and time. CLINICAL LABS: Reviewed. WBC normal. Hemoglobin low 10.5, anemia. Sodium low 129, hyponatremia. Potassium low 3.0, hypokalemia. STUDIES: Esophagram independently reviewed demonstrates no hiatal hernia. No sizable reflux. Mild presbyesophagus. This is my independent interpretation. ASSESSMENT: 1. Intractable nausea and vomiting 2. Anemia 3. Hyponatremia 4. Hypokalemia 5. Presbyesophagus. PLAN: 1. Will monitor patient's response to texture diet regarding presbyesophagus. 2. Patient has multiple electrolyte abnormalities which will contribute to ile us and also nausea and potential vomiting. Will need correction. Objective - Vital Signs Vital signs: Vital Signs Temp 98.0 F 05/02/24 16:14 Pulse 72 05/02/24 16:14 Resp 17 05/02/24 16:14 BP 138/81 05/02/24 16:14 Pulse Ox 95 05/02/24 16:14 FiO2 Intake & Output 05/01/24 05/02/24 05/02/24 18:59 06:59 18:59 Weight 63.503 kg Other: # Voids 3 4 # Bowel Movements 1 3 - Labs CBC & Chem 7: 05/02/24 04:54 05/02/24 04:54 Labs: Abnormal Lab Results - Last 24 Hours (Table) 05/02/24 05/02/24 05/02/24 Range/Units 04:54 04:54 04:54 RBC 3.53 L (3.80-5.40) m/uL Hgb 10.5 L (11.4-16.0) gm/dL Hct 32.1 L (34.0-46.0) % RDW 15.7 H (11.5-15.5) % Lymphocytes # 0.6 L (1.0-4.8) k/uL Sodium 129 L (137-145) mmol/L Potassium 3.0 L (3.5-5.1) mmol/L Chloride 93 L (98-107) mmol/L BUN <2 L (7-17) mg/dL Creatinine 0.45 L (0.52-1.04) mg/dL POC Glucose (mg/dL) (70-110) mg/dL Calcium 7.8 L (8.4-10.2) mg/dL Magnesium 1.1 L (1.6-2.3) mg/dL 05/02/24 05/02/24 05/02/24 Range/Units 06:12 11:48 16:52 RBC (3.80-5.40) m/uL Hgb (11.4-16.0) gm/dL Hct (34.0-46.0) % RDW (11.5-15.5) % Lymphocytes # (1.0-4.8) k/uL Sodium (137-145) mmol/L Potassium (3.5-5.1) mmol/L Chloride (98-107) mmol/L BUN (7-17) mg/dL Creatinine (0.52-1.04) mg/dL POC Glucose (mg/dL) 114 H 130 H 180 H (70-110) mg/dL Calcium (8.4-10.2) mg/dL Magnesium (1.6-2.3) mg/dL
[2024-05-02 20:33] LABS: Glucose,Whole Blood 125 mg/dL (70-110)
[2024-05-02 21:50] LABS: African American GFR (CKD) >90 (>60 ml/min/1.73 sqM); Anion Gap 6 mmol/L; Blood Urea Nitrogen 3 mg/dL (7-17); Calcium 7.7 mg/dL (8.4-10.2); Carbon Dioxide 30 mmol/L (22-30); Chloride 92 mmol/L (98-107); Glucose 120 mg/dL (74-99); Non-African American GFR(CKD) >90 (>60 ml/min/1.73 sqM); Sodium 128 mmol/L (137-145)
[2024-05-03 06:07] LABS: Basophils % (A) 0 %; Eosinophils % (A) 1 %; HCT 33.8 % (34.0-46.0); HGB 10.9 gm/dL (11.4-16.0); Lymphocytes # (A) 1.4 k/uL (1.0-4.8); Lymphocytes % (A) 30 %; MCH 29.6 pg (25.0-35.0); MCHC 32.3 g/dL (31.0-37.0); MCV 91.6 fL (80.0-100.0); Mean Platelet Volume 6.9; Monocytes # (A) 0.4 k/uL (0-1.0); Monocytes % (A) 9 %; Neutrophils # (A) 2.8 k/uL (1.3-7.7); Neutrophils % (A) 58 %; Platelet Count 201 k/uL (150-450); RBC 3.69 m/uL (3.80-5.40); RDW 15.3 % (11.5-15.5); WBC 4.8 k/uL (3.8-10.6)
[2024-05-03 06:15] LABS: African American GFR (CKD) >90 (>60 ml/min/1.73 sqM); Anion Gap 8 mmol/L; Blood Urea Nitrogen 3 mg/dL (7-17); Calcium 7.8 mg/dL (8.4-10.2); Carbon Dioxide 27 mmol/L (22-30); Chloride 96 mmol/L (98-107); Glucose 107 mg/dL (74-99); Non-African American GFR(CKD) >90 (>60 ml/min/1.73 sqM); Potassium 2.9 mmol/L (3.5-5.1); Sodium 131 mmol/L (137-145)
[2024-05-03 07:00] LABS: Glucose,Whole Blood 94 mg/dL (70-110)
[2024-05-03] MEDS: POTASSIUM BICARBONATE/CIT AC 20 MEQ TABLET.EFF PO ONE ×2 (09:30→14:20)
[2024-05-03 11:28] LABS: Glucose,Whole Blood 127 mg/dL (70-110)
--- NOTE | 2024-05-03 13:04 | P.PN ---
Subjective Progress Note Date: 05/03/24 Subjective: Patient seen and examined at bedside. No acute events overnight. Had 50% of her dinner, 25% of lunch and breakfast. Denies any further nausea. Pertinent positives and negatives as discussed above, a complete review of systems was performed and all other systems are negative. Vitals Signs Reviewed. General: Nontoxic, no distress, appears at stated age Derm: Warm, dry Head: Atraumatic, normocephalic, symmetric Eyes: EOMI, no lid lag, anicteric sclera Mouth: No lip lesion, mucus membranes moist Cardiovascular: S1S2 reg, no murmur Lungs: CTA bilateral, no rhonchi, no rales, no accessory muscle use Abdominal: Soft, nontender to palpation, no guarding, no appreciable orga nomegaly Ext: No gross muscle atrophy, no edema, no contractures Neuro: CN II-XI grossly intact, no focal neuro deficits Psych: Alert, oriented, appropriate affect Data Reviewed Today: Pertinent Labs: Hemoglobin 10.9, sodium 131, potassium 2.9, creatinine 0.53, magnesium 1.8, blood sugars range between 94-1 27 Imaging: No new imaging Assessment and Plan: Active: Intractable nausea vomiting, resolved Severe hypokalemia Hyponatremia, hypovolemic Esophageal dysmotility Depression -Appetite has improved since starting Remeron 7.5 nightly per psychiatry -Continue Reglan 5 mg IV every 6 hours -Patient may have component of diabetic gastroparesis, unable to complete gastric emptying study -GI and general surgery also following, on IV pantoprazole 40 twice daily, will switch to oral -Continue normal saline at 130 cc an hour, given 80 mill equivalent oral potassium today - Repeat labs tomorrow -If continued improvement in oral intake as well as no further electrolyte abnormalities, will discharge patient Type 2 diabetes -Sliding scale insulin, monitor for hypoglycemia Resolved: Hypomagnesemia Chronic: Hypertension, holding hydrochlorothiazide Dyslipidemia DVT ppx: Lovenox Code status: Full code Anticipated discharge place: Pending clinical course Anticipated discharge time: Pending clinical course Objective - Vital Signs Vital signs: Vital Signs Temp 98.2 F 05/03/24 07:31 Pulse 100 05/03/24 07:31 Resp 18 05/03/24 07:31 BP 161/92 05/03/24 07:31 Pulse Ox 95 05/03/24 07:31 FiO2 Intake & Output 05/02/24 05/03/24 05/03/24 18:59 06:59 18:59 Intake Total 1240 540 Balance 1240 540 Intake: Intake, IV Titration 600 Amount Sodium Chloride 0.9% 1, 600 000 ml @ 130 mls/hr IV . Q7H42M [facility] Rx#:[id number] Oral 640 540 Other: # Voids 3 1 # Bowel Movements 1 1 - Labs CBC & Chem 7: 05/03/24 05:40 05/03/24 05:40 Labs: Abnormal Lab Results - Last 24 Hours (Table) 05/02/24 05/02/24 05/02/24 Range/Units 16:52 17:33 20:32 RBC (3.80-5.40) m/uL Hgb (11.4-16.0) gm/dL Hct (34.0-46.0) % Sodium (137-145) mmol/L Potassium 3.0 L (3.5-5.1) mmol/L Chloride (98-107) mmol/L BUN (7-17) mg/dL Creatinine (0.52-1.04) mg/dL Glucose (74-99) mg/dL POC Glucose (mg/dL) 180 H 125 H (70-110) mg/dL Calcium (8.4-10.2) mg/dL 05/02/24 05/03/24 05/03/24 Range/Units 20:57 05:40 05:40 RBC 3.69 L (3.80-5.40) m/uL Hgb 10.9 L (11.4-16.0) gm/dL Hct 33.8 L (34.0-46.0) % Sodium 128 L 131 L (137-145) mmol/L Potassium 3.0 L 2.9 L (3.5-5.1) mmol/L Chloride 92 L 96 L (98-107) mmol/L BUN 3 L 3 L (7-17) mg/dL Creatinine 0.45 L (0.52-1.04) mg/dL Glucose 120 H 107 H (74-99) mg/dL POC Glucose (mg/dL) (70-110) mg/dL Calcium 7.7 L 7.8 L (8.4-10.2) mg/dL 03/02/25 Range/Units 11:22 RBC (3.80-5.40) m/uL Hgb (11.4-16.0) gm/dL Hct (34.0-46.0) % Sodium (137-145) mmol/L Potassium (3.5-5.1) mmol/L Chloride (98-107) mmol/L BUN (7-17) mg/dL Creatinine (0.52-1.04) mg/dL Glucose (74-99) mg/dL POC Glucose (mg/dL) 127 H (70-110) mg/dL Calcium (8.4-10.2) mg/dL
--- NOTE | 2024-05-03 14:42 | P.PN ---
Subjective Progress Note Date: 05/03/24 CHIEF COMPLAINT: Intractable nausea vomiting HISTORY OF PRESENT ILLNESS: The patient is a 69-year-old female being seen for intractable nausea and vomiting. is at bedside today. He reports his has troubles with swallowing due to her new partial dentures. Patient does not have her dentures in. He personally brought it. Additionally, patient is pending to have permanent dentures refitted after discharge from the hospital. He reports he has difficulty with textured foods. As a result, patient has had low appetite. He reports she prefers chicken broth. Patient does report abdomi nal cramping. Some occasional nausea. No emesis documented. ROS: No fevers or chills. No new chest pain. No productive sputum PHYSICAL EXAM: VITAL SIGNS: Reviewed CONSTITUTIONAL: Well developed and in no acute distress. EYES: Conjuctivae without sclera icterus. Extraocular movements grossly intact. HEAD, EARS, NOSE, THROAT: Moist buccal mucosa. Head is atraumatic, normocephalic. Hears conversational speech. No nasal drainage. RESPIRATORY: Non-labored respirations and equal bilateral excursions. CARDIOVASCULAR: Palpable 2+ radial pulses. ABDOMEN: Nontender. MUSCULOSKELETAL: No gross deformity of the lower extremities noted. No clubbing. No cyanosis. SKIN: Good skin turgor. Well perfused. NEUROLOGIC: Cranial nerves II through XII grossly intact. No focal or lateralizing signs. PSYCH: Flat affect. Alert and oriented to person, place and time. CLINICAL LABS: Reviewed. WBC normal. Potassium low 2.9, hypokalemia. Sodium over 130. ASSESSMENT: 1. Intractable nausea and vomiting 2. Anemia 3. Hyponatremia 4. Hypokalemia 5. Presbyesophagus. 6. Lack of dentition PLAN: 1. Per discussion with her , patient has difficulty with eating due to lack of dentition. Will advise for placement of her dentures to facilitate eating 2. Additionally, we will change her diet to easily digestible such as pured versus ground diet for easy absorption 3. Patient has severe hypokalemia which can also contribute to underlying ileus as well as nausea. Recommend both oral and IV supplementation Objective - Vital Signs Vital signs: Vital Signs Temp 98.5 F 05/03/24 13:41 Pulse 80 05/03/24 13:41 Resp 17 05/03/24 13:41 BP 137/75 05/03/24 13:41 Pulse Ox 95 05/03/24 13:41 FiO2 Intake & Output 05/02/24 05/03/24 05/03/24 18:59 06:59 18:59 Intake Total 1240 540 Balance 1240 540 Intake: Intake, IV Titration 600 Amount Sodium Chloride 0.9% 1, 600 000 ml @ 130 mls/hr IV . Q7H42M [facility] Rx#:[id number] Oral 640 540 Other: # Voids 3 1 # Bowel Movements 1 1 - Labs CBC & Chem 7: 05/03/24 05:40 05/03/24 05:40 Labs: Abnormal Lab Results - Last 24 Hours (Table) 05/02/24 05/02/24 05/02/24 Range/Units 16:52 17:33 20:32 RBC (3.80-5.40) m/uL Hgb (11.4-16.0) gm/dL Hct (34.0-46.0) % Sodium (137-145) mmol/L Potassium 3.0 L (3.5-5.1) mmol/L Chloride (98-107) mmol/L BUN (7-17) mg/dL Creatinine (0.52-1.04) mg/dL Glucose (74-99) mg/dL POC Glucose (mg/dL) 180 H 125 H (70-110) mg/dL Calcium (8.4-10.2) mg/dL 05/02/24 05/03/24 05/03/24 Range/Units 20:57 05:40 05:40 RBC 3.69 L (3.80-5.40) m/uL Hgb 10.9 L (11.4-16.0) gm/dL Hct 33.8 L (34.0-46.0) % Sodium 128 L 131 L (137-145) mmol/L Potassium 3.0 L 2.9 L (3.5-5.1) mmol/L Chloride 92 L 96 L (98-107) mmol/L BUN 3 L 3 L (7-17) mg/dL Creatinine 0.45 L (0.52-1.04) mg/dL Glucose 120 H 107 H (74-99) mg/dL POC Glucose (mg/dL) (70-110) mg/dL Calcium 7.7 L 7.8 L (8.4-10.2) mg/dL 05/03/24 Range/Units 11:22 RBC (3.80-5.40) m/uL Hgb (11.4-16.0) gm/dL Hct (34.0-46.0) % Sodium (137-145) mmol/L Potassium (3.5-5.1) mmol/L Chloride (98-107) mmol/L BUN (7-17) mg/dL Creatinine (0.52-1.04) mg/dL Glucose (74-99) mg/dL POC Glucose (mg/dL) 127 H (70-110) mg/dL Calcium (8.4-10.2) mg/dL
[2024-05-03 16:58] LABS: Glucose,Whole Blood 123 mg/dL (70-110)
[2024-05-03] MEDS: 0.9% NACL WITH KCL 40 MEQ/L 1,000 ML IV SCH (17:15)
[2024-05-03] MEDS ORDERED: PANTOPRAZOLE 40 MG TABLET PO SCH (17:30)
[2024-05-03 21:03] LABS: Glucose,Whole Blood 128 mg/dL (70-110)
[2024-05-04] MEDS: PANTOPRAZOLE 40 MG TABLET PO SCH (06:25)
[2024-05-04 06:26] LABS: Glucose,Whole Blood 153 mg/dL (70-110)
[2024-05-04 10:26] LABS: Basophils # (A) 0.01 X 10*3/uL (0.00-0.10); Basophils % (A) 0.2 %; Eosinophils # (A) 0 X 10*3/uL (0.04-0.35); Eosinophils % (A) 0 %; HCT 33.8 % (37.2-46.3); Lymphocytes # (A) 0.52 X 10*3/uL (0.90-5.00); Lymphocytes % (A) 8.2 %; MCH 29.7 pg (27.0-32.0); MCHC 32.5 g/dL (32.0-37.0); MCV 91.4 FL (80.0-97.0); Mean Platelet Volume 10.8 FL (9.5-12.2); Monocytes # (A) 0.39 X 10*3/uL (0.20-1.00); Monocytes % (A) 6.1 %; NRBC Per 100 WBC 0 X 10*3/uL (0.00-0.01); Neutrophils # (A) 5.39 X 10*3/uL (1.80-7.70); Neutrophils % (A) 84.6 %; Platelet Count 159 X 10*3/uL (140-440); RDW 16.7 % (11.5-14.5); WBC 6.37 X 10*3/uL (4.50-10.00)
[2024-05-04 10:56] LABS: BUN/Creat Ratio 6.67 Ratio (12.00-20.00); Calcium 7.9 mg/dL (8.7-10.3); Chloride 101 mmol/L (96-109); Glucose 159 mg/dL (70-110); Magnesium 1.3 mg/dL (1.5-2.4); Potassium 3.9 mmol/L (3.5-5.5); Sodium 140 mmol/L (135-145)
[2024-05-04 11:36] LABS: Glucose,Whole Blood 201 mg/dL (70-110)
[2024-05-04] MEDS ORDERED: Magnesium Replacement Protocol 1 EACH MISC MISCELLANE PRN (12:15)
--- NOTE | 2024-05-04 12:17 | P.PN ---
Subjective Progress Note Date: 05/04/24 Principal diagnosis: Nausea and vomiting This is a pleasant 69-year-old female who has had ongoing nausea and vomiting for several months, even possibly for the last year and he has followed with Dr. Rodriguez in the office and was seen yesterday. She was noted to be dehydrated and weak and was sent over to the emergency department for further evaluation. On admission she was noted to be hyponatremic and hypokalemic as well as dehydrated. Patient has had increased nausea and vomiting over the last 2 2 days vomiting up to several times a day nonbilious nonbloody emesis. Prior to that vomiting is intermittent maybe 1 to 2 days a week however she has not been eating due to stomach getting upset. States that she is lost 40 pounds over the last few months duration. She had a recent EGD 2 weeks ago at [facility] with no significant findings, colonoscopy about 2 years ago. She underwent cholecystectomy for cholecystitis on 02/21/2024 at [facility]. Today she has not had any vomiting she is taking in some liquids. States she has had constipation and some loose stools. She is denying any abdominal pain. 04/29/2024 Patient seen and examined today as a follow-up. She states she had a bad night and she had nausea and vomiting. States she continues to have an upset stomach and feels gassy. She is scheduled for a gastric emptying study on Saturday. She cannot have any proton pump inhibitors. She had a couple episodes of diarrhea yesterday, stool was sent for stool studies however apparently had spilled. She denies any blood in her stool or emesis. She has had no further emesis this morning. Cortisol level 34.4 04/30/2024 Patient seen and examined this morning as a follow-up. She went down for her gastric emptying study however apparently when patient was asked to eat scrambled eggs for the study she said she could not and started having dry heaves. Patient has been refusing to eat. No vomiting. Just states that her s tomach is upset. 05/01/2024 Patient seen and examined this morning as a follow-up. She continues to stage that she is not eating. She is drinking her Ensure drinks. No nausea and vomiting. She did have some loose stools yesterday, nonbloody. Discussed with patient concerns for depression and patient states that she is depressed. This likely could be playing a role into why patient is not eating and she agrees. Patient is agreeable to see psychiatrist. She continues to deny any abdominal pain. 05/04/2024 Patient seen and examined today as a follow-up. She had her upper GI series on Saturday that reported limited evaluation due to patient's immobility. Esophageal dysmotility. Gastric fundus within normal limits. She was seen by psychiatry that did some medication adjustment. Patient states she is not eating much but she is trying. States she does not want to eat her pured food. Asking for chopped. States she still having some loose bowels. Stool samples have not been collected. She denies any abdominal pain, nausea or vomiting. Patient has remained hyponatremic and hypokalemic. General surgery following, decrease Protonix to once daily and patient on pured diet. Sodium and potassium improved today sodium 140 potassium 3.9 magnesium 1.3. Objective - Vital Signs Vital signs: Vital Signs Temp 98.5 F 05/04/24 07:45 Pulse 118 H 05/04/24 07:45 Resp 17 05/04/24 07:45 BP 158/85 05/04/24 07:45 Pulse Ox 97 05/04/24 07:45 FiO2 Intake & Output 05/03/24 05/04/24 05/04/24 18:59 06:59 18:59 Other: Voiding Method Bedside Commode # Voids 1 2 # Bowel Movements 1 1 - Exam General appearance: The patient is alert, oriented, appears in no acute distress. Patient appears sad, withdrawn. HET: Head is normocephalic and atraumatic. Conjunctiva pink. Sclera anicteric. Neck: Supple without lymphadenopathy. Abdomen: Soft, nontender, nondistended. Extremities: Normal skin color and turgor. No pedal edema Skin: No rashes, no jaundice Neurological: No focal deficits. Alert and oriented. - Labs CBC & Chem 7: 05/04/24 06:01 05/04/24 06:01 Labs: Abnormal Lab Results - Last 24 Hours (Table) 05/03/24 05/03/24 05/03/24 Range/Units 11:22 16:57 21:00 POC Glucose (mg/dL) 127 H 123 H 128 H (70-110) mg/dL 05/04/24 Range/Units 06:25 POC Glucose (mg/dL) 153 H (70-110) mg/dL Assessment and Plan (1) Nausea and vomiting Narrative/Plan: Chronic nausea and vomiting superimposed by acute episodes over the last couple days duration mixed with some chronic constipation with recent diarrhea. Symptoms have been ongoing she had recent upper endoscopy 2 weeks ago for further evaluation of the nausea and vomiting at [facility] without any significant findings. Last colonoscopy about 2 years ago. She had recent cholecystectomy done in February 2024 however symptoms had preceded that for months. Unclear etiology of nausea and vomiting. Recommend fasting cortisol level and gastric emptying study. Cortisol level normal, gastric emptying study tentatively scheduled for Saturday. There is no elevation in her LFTs no elevated bilirubin. CT abdomen pelvis showing gastritis and colitis possible secondary to infectious versus inflammatory process. Intra and extrahepatic biliary dilation likely secondary to postcholecystectomy. However patient has no leukocytosis. Treat symptomatically. Gastric emptying study ordered, could not be completed secondary to patient refusing to eat and stating that she has no appetite and upset stomach. Patient is diabetic, can consider possible diabetic gastroparesis. Discussed with patient and it is important that patient eats small amount of meals, menu given to patient to choose her foods. Will continue with symptomatic treatment with antiemetics. Current Visit: Yes Status: Acute Code(s): R11.2 - NAUSEA WITH VOMITING, UNSPECIFIED SNOMED Code(s): 57666392 (2) Hypokalemia Narrative/Plan: Continue to replace electrolytes as needed per protocol Current Visit: Yes Status: Acute Code(s): E87.6 - HYPOKALEMIA SNOMED Code(s): 10728050 (3) Hypomagnesemia Narrative/Plan: Replace per protocol Current Visit: Yes Status: Acute Code(s): E83.42 - HYPOMAGNESEMIA SNOMED Code(s): 774448650 (4) Dilated intrahepatic bile duct Current Visit: Yes Status: Acute Code(s): K83.8 - OTHER SPECIFIED DISEASES OF BILIARY TRACT SNOMED Code(s): 654971351 Plan: 1. Continue symptomatic and supportive care 2. Antiemetics as needed 3. Will increase to chopped diet 4. Protonix 40 milligrams once daily 5. Glucerna with meals 6. Gastric emptying study ordered, study was not completed as patient refused to eat eggs and started dry heaving 7. No plans for endoscopic evaluation at this time patient had recent upper endoscopy within the last 2 weeks. 8. Magnesium per protocol 9. Psychiatry on consultation, continue with recommendations Thank you for this consultation, we will continue to follow. Dr. Rabia Rodriguez I agree with the dictator's note, documented as a scribe by Jillian Mark.
[2024-05-04] MEDS: MAGNESIUM SULFATE-D5W PMX 1 GM in DEXTROSE/WATER 1 100ML.BAG IVPB SCH (12:21)
[2024-05-04] MEDS: droNABinol 2.5 MG CAP PO SCH (12:22)
--- NOTE | 2024-05-04 12:38 | P.PN ---
Subjective Progress Note Date: 05/04/24 SURGICAL PROGRESS NOTE CHIEF COMPLAINT: Nausea, vomiting and diarrhea HISTORY OF PRESENT ILLNESS: Patient has no new complaints. Upper GI reports limited evaluation. Esophageal dysmotility noted. Gastric fundus within normal limits. Patient having bowel movements. Afebrile. WBC 6.37 Hgb 11 magnesium 1.3 Patient seen and examined with Dr. Mart PHYSICAL EXAM: VITAL SIGNS: Reviewed. GENERAL: in no acute distress. ABDOMEN: Soft. Nondistended. NEUROLOGIC: Alert and oriented. Cranial nerves II through XII grossly intact. ASSESSMENT: 1. Abdominal pain with nausea vomiting and diarrhea. resolved. Possible gastroenteritis and colitis noted on CT scan. 2. Esophageal dysmotility noted on upper GI 3. Hypokalemia improved 4. Hypomagnesemia 5. History of recent laparoscopic cholecystectomy February 21, 2024 PLAN: -No surgical intervention planned -Continue to correct magnesium -Recommend eating small frequent meals -Surgical service will sign off. Please call with any questions or concerns. Physician Airplane Pilot Supervisor note has been reviewed by physician. Signing provider agrees with the documented findings, assessment, and plan of care. Objective - Vital Signs Vital signs: Vital Signs Temp 98.5 F 05/04/24 07:45 Pulse 118 H 05/04/24 07:45 Resp 17 05/04/24 07:45 BP 158/85 05/04/24 07:45 Pulse Ox 97 05/04/24 07:45 FiO2 Intake & Output 05/03/24 05/04/24 05/04/24 18:59 06:59 18:59 Other: Voiding Method Bedside Commode # Voids 1 2 # Bowel Movements 1 1 - Labs CBC & Chem 7: 05/04/24 06:01 05/04/24 06:01 Labs: Abnormal Lab Results - Last 24 Hours (Table) 05/03/24 05/03/24 05/04/24 Range/Units 16:57 21:00 06:01 RBC 3.70 L (4.10-5.20) X 10*6/uL Hgb 11.0 L (12.0-15.0) g/dL Hct 33.8 L (37.2-46.3) % RDW 16.7 H (11.5-14.5) % Immature Gran # 0.06 H (0.00-0.04) X 10*3/uL Lymphocytes # 0.52 L (0.90-5.00) X 10*3/uL Eosinophils # 0 L (0.04-0.35) X 10*3/uL Anion Gap (4.00-12.00) mmol/L BUN (9.0-27.0) mg/dL BUN/Creatinine Ratio (12.00-20.00) Ratio Glucose (70-110) mg/dL POC Glucose (mg/dL) 123 H 128 H (70-110) mg/dL Calcium (8.7-10.3) mg/dL Magnesium (1.5-2.4) mg/dL 05/04/24 05/04/24 05/04/24 Range/Units 06:01 06:25 11:33 RBC (4.10-5.20) X 10*6/uL Hgb (12.0-15.0) g/dL Hct (37.2-46.3) % RDW (11.5-14.5) % Immature Gran # (0.00-0.04) X 10*3/uL Lymphocytes # (0.90-5.00) X 10*3/uL Eosinophils # (0.04-0.35) X 10*3/uL Anion Gap 15.00 H (4.00-12.00) mmol/L BUN 4.0 L (9.0-27.0) mg/dL BUN/Creatinine Ratio 6.67 L (12.00-20.00) Ratio Glucose 159 H (70-110) mg/dL POC Glucose (mg/dL) 153 H 201 H (70-110) mg/dL Calcium 7.9 L (8.7-10.3) mg/dL Magnesium 1.3 L (1.5-2.4) mg/dL
--- NOTE | 2024-05-04 15:07 | P.PN ---
Subjective Progress Note Date: 05/04/24 Patient is a 69-year-old female with past medical history significant for [id number] diabetes mellitus, hypertension, hyperlipidemia presents to the emergency department with nausea/vomiting, diarrhea, decreased appetite since December gradually worsening over the last few weeks. 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 She has been unable to tolerate oral intake as everything upsets her stomach. She also reports intermittent cramping pain throughout the abdomen. She has had a 50 pound weight loss since January 2024. She reports that she had a CT abdomen performed at [facility] about 2 weeks ago which showed "inflammation of the intestines" as well as an EGD with Dr. Rodriguez about a week ago. She was in Dr. Rodriguez's office today who strongly recommended that she come to the ED due to dehydration and inability to tolerate oral intake. Of note she says that January 2023 she began taking Ozempic for total of 2 months, initially prescribed 5 mg and decreased to 2.5 mg but she was unable tolerate the medication. She states that she has not fully felt like herself since then. She denies fever, chest pain, dyspnea, hematuria, hematochezia/melena, hemateme sis. Initial vitals: BP 142/79, RI 85 bpm, 97.8 F, 99% on room air Initial labs: WBC 12, hemoglobin 13.3, platelets 374, PTT 20, sodium 135, potassium 2.4, chloride 96, CO2 19, BUN 11, creatinine 0.63, glucose 193, magnesium 1.3 Initial EKG: Supraventricular rhythm with ventricular rate 82 bpm, QTc 370 ms, mild ST-depression in lead II Initial CT abdomen/pelvis: Findings suggestive of acute gastritis/enteritis in addition to colitis likely related to infectious/inflammatory etiology; nonspecific intrahepatic and extrahepatic biliary ductal dilatation; intermediate left adrenal gland nodule Urinalysis: Trace protein, 1+ glucose, 4+ ketones, 1+ bilirubin, bacteria, 23 WBC, hyaline casts 04/28/2024 patient seen and examined at bedside. No new complaints. WBC 7.9, hemoglobin 11.4, hematocrit 34.8, platelet count 281,000, sodium 134, potassium 2.8, chloride 103, bicarb 21, BUN 8, creatinine 0.59, glucose 128, calcium 8.4 04/29/2024 patient seen and examined at bedside. Had episodes of diarrhea 3-4x with associated nausea and nonbilious nonbloody vomiting. Labs today showed WBC 7.5, hemoglobin 11.1, MCV 94.9, platelet count 251,000, sodium 135, potassium 3.5, chloride 104, bicarb 16, BUN 6, creatinine 0.56, glucose 162, TSH 2.77, morning consult 34.4 04/30/2024 patient seen and examined at bedside. No acute events overnight. No new complaints. still nauseated. gastric emptying scan was attempted but not done due to patient unable to tolerate any oral intake and nauseated. Labs today show WBC 7, hemoglobin 11.8, MCV 93, platelet count 102,000, sodium 132, potassium 3.1, chloride 103, bicarb 18, BUN 4, creatinine 0.53, glucose 130, calcium 8.3 05/01/2024 Patient seen and examined at bedside. No new complaints. Labs show WBC 6.4, hemoglobin 11.2, MCV 93.2, platelet count 234,000, sodium 132, potassium 2.8, BUN 2, creatinine 0.51, chloride 99, bicarb 22, glucose 120 calcium 8.2, magnesium 1.8. Upper GI series showed limited evaluation due to patient's immobility. Esophageal dysmotility. Gastric fundus within normal limits. 05/02/2024 patient seen and examined at bedside. No acute events overnight. No new complaints. Improved abdominal pain, no longer nauseated. She says her mood is better and she is regaining her appetite. Labs today show WBC 3.8, hemoglobin 10.5, MCV 90.9, platelet count 202,000, sodium 129, potassium 3, chloride 93, bicarb 29, BUN less than 2, creatinine 0.45, calcium 7.8, glucose 90 05/03/2024 Patient seen and examined at bedside. No acute events overnight. Had 50% of her dinner, 25% of lunch and breakfast. Denies any further nausea. 05/04/2024 patient seen and examined at bedside. No acute events overnight. Patient only had 25% of breakfast and 50% of afternoon snack, refused lunch and dinner. Still experiencing some nausea and diarrhea. Labs today showed WBC 6.36, hemoglobin 11, MCV 91.4, platelet count 1 59,000, sodium 140, potassium 3.9, chloride 101, bicarb 24, BUN 4, creatinine 0.6, glucose 159, calcium 7.9, magnesium 1.3 Review of systems: Pertinent positives and negatives as discussed in HPI, a complete review of systems was performed and all other systems are negative. Pertinent imaging and labs reviewed. Physical examination: Vital signs reviewed General: non toxic, no distress, appears at stated age, frail looking Derm: no unusual rashes/lesions, warm Head: atraumatic, normocephalic, symmetric Eyes: EOMI, anicteric sclera, pupils equal round reactive to light ENT: Nose and ears atraumatic Neck: No cervical lymphadenopathy, trachea midline, supple Mouth: no lip lesion, mucus membranes moist Cardiovascular: S1S2 reg, grade 3/6 systolic murmur present best heard on 2nd right ICS Lungs: CTA bilateral, no rhonchi, no rales, no accessory muscle use Abdominal: soft, nontender, no guarding, nontender, bowel sounds appreciated Ext: muscle strength 5 out of 5 in all 4 extremities grossly, no gross muscle atrophy, no contractures, positive dorsalis pedis pulse bilateral, no edema Neuro: CN II-XI grossly intact, no gross focal neuro deficits Psych: Alert and oriented x3, appropriate affect and mood Assessment/Plan: Patient is a 69-year-old female with a past medical history significant for [id number] diabetes mellitus, hypertension, hyperlipidemia admitted for intractable nausea/vomiting and severe hypokalemia and required multiple electrolyte corrections. Patient found to have esophageal dysmotility on imaging. Admitted to feeling depressed. #. Esophageal dysmotility #. Chronic nausea/vomiting likely due to above #. Anion gap metabolic acidosis, resolved #. Hyponatremia #. Depression -Upper GI series showed limited evaluation due to patient's immobility. Esophag eal dysmotility. Gastric fundus within normal limits. -CT abdomen/pelvis: Findings suggestive of acute gastritis/enteritis in addition to colitis likely related to infectious/inflammatory etiology; nonspecific - intrahepatic and extrahepatic biliary ductal dilatation; intermediate left adrenal gland nodule -Patient had recent upper endoscopy within the last 2 weeks. Not recommended by GI to repeat at this time -Appetite has improved since initiation of Remeron 75 mg at bedtime per psychiatry -Zofran 4 mg IV every 8 hours as needed for nausea -Added Reglan 5 mg IVPB every 6 hours for nausea -Placed on 0.9 normal saline with KCl 40 mEq at 75 cc/h by surgery -Initiate dronabinol 2.5 mg p.o. twice daily to increase appetite -GI consulted. Unable to tolerate gastric emptying study. May have component of diabetic gastroparesis -General surgery consulted. No surgical management required at this time. Advised oral pantoprazole 40 mg daily. Advised pured diet -Diet continue with consistent carbohydrate diet and Ensure -Patient advised to have small meals and properly chew foods #. Hypokalemia, resolved -Potassium 2.4 -> 2.6 -> 2.8 -> 3.1 -> 3.7 -> 3.1 -> 2.8 -> 3.0 -> 3.9 -Continue telemetry monitoring -Placed on 0.9 normal saline with KCl 40 mEq 75 cc/h by surgery -Check mag. Replete if low -Check potassium in the evening #. Hypomagnesemia -Mag 1.2 -> 1.1 -> 1.3 -Replete 4 mg magnesium sulfate IVPB -Check mag in the morning Chronic #. Hypertension Continue home medications once confirmed #. Depression Continue Cymbalta 30 mg p.o. at bedtime #. Hyperlipidemia Continue Lipitor 20 mg p.o. at bedtime #. Diabetes -A1c 6.8 -Hold pioglitazone and Janumet -NovoLog ISS ACHS -Glucose Accu-Cheks ACHS. Monitor for hypoglycemia DVT prophylaxis: Lovenox 40 mg subcutaneous daily GI prophylaxis: Pantoprazole 40 mg daily F: 0.9 normal saline 130 cc/h E: None for now N: consistent carbohydrate diet with Ensure A: Can ambulate with assistance CODE STATUS: Full Code Anticipated discharge place: Pending clinical course Lara Alonzo MD PGY-1/Clinic Specialist Dictation was produced using [employer] dictation software. please excuse any grammatical, word or spelling errors. I have seen and evaluated the patient today. Discussed with the resident and agree with the residents finding and plan as documented in the resident's note. Changes highlighted in blue font. Objective - Vital Signs Vital signs: Vital Signs Temp 98.3 F 05/04/24 01:39 Pulse 101 H 05/04/24 01:39 Resp 17 05/04/24 01:39 BP 160/78 05/04/24 01:39 Pulse Ox 98 05/04/24 01:39 FiO2 Intake & Output 05/03/24 05/04/24 05/04/24 18:59 06:59 18:59 Other: Voiding Method Bedside Commode # Voids 1 2 # Bowel Movements 1 1 - Labs CBC & Chem 7: 05/04/24 06:01 05/04/24 06:01 Labs: Abnormal Lab Results - Last 24 Hours (Table) 05/03/24 05/03/24 05/03/24 Range/Units 11:22 16:57 21:00 POC Glucose (mg/dL) 127 H 123 H 128 H (70-110) mg/dL 05/04/24 Range/Units 06:25 POC Glucose (mg/dL) 153 H (70-110) mg/dL
[2024-05-04 16:37] LABS: Glucose,Whole Blood 92 mg/dL (70-110)
[2024-05-04 20:00] LABS: Glucose,Whole Blood 158 mg/dL (70-110)
[2024-05-04] MEDS: ACETAMINOPHEN TAB 325 MG TAB PO PRN (20:42)
[2024-05-05 06:17] LABS: Glucose,Whole Blood 130 mg/dL (70-110)
[2024-05-05 06:52] LABS: African American GFR (CKD) >90 (>60 ml/min/1.73 sqM); Anion Gap 4 mmol/L; Blood Urea Nitrogen 5 mg/dL (7-17); Calcium 7.1 mg/dL (8.4-10.2); Carbon Dioxide 27 mmol/L (22-30); Chloride 99 mmol/L (98-107); Glucose 112 mg/dL (74-99); Non-African American GFR(CKD) >90 (>60 ml/min/1.73 sqM); Potassium 3.2 mmol/L (3.5-5.1); Sodium 130 mmol/L (137-145)
[2024-05-05 07:03] LABS: Basophils % (A) 0 %; Eosinophils % (A) 0 %; HCT 28.9 % (34.0-46.0); Lymphocytes # (A) 0.8 k/uL (1.0-4.8); Lymphocytes % (A) 17 %; MCH 30.1 pg (25.0-35.0); MCHC 32.5 g/dL (31.0-37.0); MCV 92.4 fL (80.0-100.0); Mean Platelet Volume 8.5; Monocytes # (A) 0.4 k/uL (0-1.0); Monocytes % (A) 7 %; Neutrophils # (A) 3.5 k/uL (1.3-7.7); Neutrophils % (A) 72 %; Platelet Count 155 k/uL (150-450); RBC 3.13 m/uL (3.80-5.40); WBC 4.9 k/uL (3.8-10.6)
[2024-05-05 07:08] LABS: HGB 9.4 gm/dL (11.4-16.0)
[2024-05-05] MEDS: FAMOTIDINE 20 MG TAB PO SCH (08:05)
--- NOTE | 2024-05-05 10:36 | P.PN ---
Subjective Progress Note Date: 05/05/24 Principal diagnosis: Nausea and vomiting This is a pleasant 69-year-old female who has had ongoing nausea and vomiting for several months, even possibly for the last year and he has followed with Dr. Rodriguez in the office and was seen yesterday. She was noted to be dehydrated and weak and was sent over to the emergency department for further evaluation. On admission she was noted to be hyponatremic and hypokalemic as well as dehydrated. Patient has had increased nausea and vomiting over the last 2 2 days vomiting up to several times a day nonbilious nonbloody emesis. Prior to that vomiting is intermittent maybe 1 to 2 days a week however she has not been eating due to stomach getting upset. States that she is lost 40 pounds over the last few months duration. She had a recent EGD 2 weeks ago at [facility] with no significant findings, colonoscopy about 2 years ago. She underwent cholecystectomy for cholecystitis on 02/21/2024 at [facility]. Today she has not had any vomiting she is taking in some liquids. States she has had constipation and some loose stools. She is denying any abdominal pain. 04/29/2024 Patient seen and examined today as a follow-up. She states she had a bad night and she had nausea and vomiting. States she continues to have an upset stomach and feels gassy. She is scheduled for a gastric emptying study on Saturday. She cannot have any proton pump inhibitors. She had a couple episodes of diarrhea yesterday, stool was sent for stool studies however apparently had spilled. She denies any blood in her stool or emesis. She has had no further emesis this morning. Cortisol level 34.4 04/30/2024 Patient seen and examined this morning as a follow-up. She went down for her gastric emptying study however apparently when patient was asked to eat scrambled eggs for the study she said she could not and started having dry heaves. Patient has been refusing to eat. No vomiting. Just states that her s tomach is upset. 05/01/2024 Patient seen and examined this morning as a follow-up. She continues to stage that she is not eating. She is drinking her Ensure drinks. No nausea and vomiting. She did have some loose stools yesterday, nonbloody. Discussed with patient concerns for depression and patient states that she is depressed. This likely could be playing a role into why patient is not eating and she agrees. Patient is agreeable to see psychiatrist. She continues to deny any abdominal pain. 05/04/2024 Patient seen and examined today as a follow-up. She had her upper GI series on Saturday that reported limited evaluation due to patient's immobility. Esophageal dysmotility. Gastric fundus within normal limits. She was seen by psychiatry that did some medication adjustment. Patient states she is not eating much but she is trying. States she does not want to eat her pured food. Asking for chopped. States she still having some loose bowels. Stool samples have not been collected. She denies any abdominal pain, nausea or vomiting. Patient has remained hyponatremic and hypokalemic. General surgery following, decrease Protonix to once daily and patient on pured diet. Sodium and potassium improved today sodium 140 potassium 3.9 magnesium 1.3. 05/05/2024 Patient seen and examined today as a follow-up. She is lying in bed with very Salam look on her face. Physical therapy at bedside to evaluate and get patient up. Patient states she ate a little bit yesterday. Her diet was advanced to a chopped diet from pured as she said she would not eat her pured diet. She is drinking her Ensure. Patient does appear depressed and lack of interest. Today's sodium 138 potassium 3.2. Stool for C. difficile was negative. Patient denies any abdominal pain, no nausea or vomiting. Objective - Vital Signs Vital signs: Vital Signs Temp 98.6 F 05/05/24 07:00 Pulse 85 05/05/24 07:00 Resp 16 05/05/24 07:00 BP 148/77 05/05/24 07:00 Pulse Ox 99 05/05/24 07:00 FiO2 Intake & Output 05/04/24 05/05/24 05/05/24 18:59 06:59 18:59 Weight 63.503 kg Other: Voiding Method Bedside Commode Bedside Commode Diaper Diaper # Voids 4 3 # Bowel Movements 2 - Exam General appearance: The patient is alert, oriented, appears in no acute distress. Patient appears sad, withdrawn, lack of interest HET: Head is normocephalic and atraumatic. Conjunctiva pink. Sclera anicteric. Neck: Supple without lymphadenopathy. Abdomen: Soft, nontender, nondistended. Extremities: Normal skin color and turgor. No pedal edema Skin: No rashes, no jaundice Neurological: No focal deficits. Alert and oriented. - Labs CBC & Chem 7: 05/05/24 04:51 05/05/24 04:51 Labs: Abnormal Lab Results - Last 24 Hours (Table) 05/04/24 05/04/24 05/04/24 Range/Units 06:01 06:01 11:33 RBC 3.70 L (4.10-5.20) X 10*6/uL Hgb 11.0 L (12.0-15.0) g/dL Hct 33.8 L (37.2-46.3) % RDW 16.7 H (11.5-14.5) % Immature Gran # 0.06 H (0.00-0.04) X 10*3/uL Lymphocytes # 0.52 L (0.90-5.00) X 10*3/uL Eosinophils # 0 L (0.04-0.35) X 10*3/uL Sodium (137-145) mmol/L Potassium (3.5-5.1) mmol/L Anion Gap 15.00 H (4.00-12.00) mmol/L BUN 4.0 L (9.0-27.0) mg/dL Creatinine (0.52-1.04) mg/dL BUN/Creatinine Ratio 6.67 L (12.00-20.00) Ratio Glucose 159 H (70-110) mg/dL POC Glucose (mg/dL) 201 H (70-110) mg/dL Calcium 7.9 L (8.7-10.3) mg/dL Magnesium 1.3 L (1.5-2.4) mg/dL 05/04/24 05/05/24 05/05/24 Range/Units 19:58 04:51 04:51 RBC 3.13 L (4.10-5.20) X 10*6/uL Hgb 9.4 L D (12.0-15.0) g/dL Hct 28.9 L (37.2-46.3) % RDW 16.0 H (11.5-14.5) % Immature Gran # (0.00-0.04) X 10*3/uL Lymphocytes # 0.8 L (0.90-5.00) X 10*3/uL Eosinophils # (0.04-0.35) X 10*3/uL Sodium 130 L (137-145) mmol/L Potassium 3.2 L (3.5-5.1) mmol/L Anion Gap (4.00-12.00) mmol/L BUN 5 L (9.0-27.0) mg/dL Creatinine 0.47 L (0.52-1.04) mg/dL BUN/Creatinine Ratio (12.00-20.00) Ratio Glucose 112 H (70-110) mg/dL POC Glucose (mg/dL) 158 H (70-110) mg/dL Calcium 7.1 L (8.7-10.3) mg/dL Magnesium (1.5-2.4) mg/dL 05/05/24 Range/Units 06:16 RBC (4.10-5.20) X 10*6/uL Hgb (12.0-15.0) g/dL Hct (37.2-46.3) % RDW (11.5-14.5) % Immature Gran # (0.00-0.04) X 10*3/uL Lymphocytes # (0.90-5.00) X 10*3/uL Eosinophils # (0.04-0.35) X 10*3/uL Sodium (137-145) mmol/L Potassium (3.5-5.1) mmol/L Anion Gap (4.00-12.00) mmol/L BUN (9.0-27.0) mg/dL Creatinine (0.52-1.04) mg/dL BUN/Creatinine Ratio (12.00-20.00) Ratio Glucose (70-110) mg/dL POC Glucose (mg/dL) 130 H (70-110) mg/dL Calcium (8.7-10.3) mg/dL Magnesium (1.5-2.4) mg/dL Assessment and Plan (1) Nausea and vomiting Narrative/Plan: Chronic nausea and vomiting superimposed by acute episodes over the last couple days duration mixed with some chronic constipation with recent diarrhea. Symptoms have been ongoing she had recent upper endoscopy 2 weeks ago for further evaluation of the nausea and vomiting at [facility] without any significant findings. Last colonoscopy about 2 years ago. She had recent cholecystectomy done in February 2024 however symptoms had preceded that for months. Unclear etiology of nausea and vomiting. Recommend fasting corti miguel level and gastric emptying study. Cortisol level normal, gastric emptying study tentatively scheduled for Saturday. There is no elevation in her LFTs no elevated bilirubin. CT abdomen pelvis show ing gastritis and colitis possible secondary to infectious versus inflammatory process. Intra and extrahepatic biliary dilation likely secondary to postcholecystectomy. However patient has no leukocytosis. Treat symptomatically. Gastric emptying study ordered, could not be completed secondary to patient refusing to eat and stating that she has no appetite and upset stomach. Patient is diabetic, can consider possible diabetic gastroparesis. Discussed with patient and it is important that patient eats small amount of meals, menu given to patient to choose her foods. Will continue with symptomatic treatment with antiemetics. Patient's nausea and vomiting is completely resolved. She had undergone upper GI series again poor study secondary to patient mobility. Does show esophageal dysmotility, which has been discussed with patient to eat small meals, encourage activity. Current Visit: Yes Status: Acute Code(s): R11.2 - NAUSEA WITH VOMITING, UNSPECIFIED SNOMED Code(s): 10450586 (2) Hypokalemia Narrative/Plan: Continue to replace electrolytes as needed per protocol Current Visit: Yes Status: Acute Code(s): E87.6 - HYPOKALEMIA SNOMED Code(s): 24884954 (3) Hypomagnesemia Narrative/Plan: Replace per protocol Current Visit: Yes Status: Acute Code(s): E83.42 - HYPOMAGNESEMIA SNOMED Code(s): 243435963 (4) Dilated intrahepatic bile duct Narrative/Plan: Likely secondary to post cholecystectomy. No elevated LFTs. No abdominal pain reported. Current Visit: Yes Status: Acute Code(s): K83.8 - OTHER SPECIFIED DISEASES OF BILIARY TRACT SNOMED Code(s): 670721004 (5) Depression Current Visit: Yes Status: Acute Code(s): F32.A - DEPRESSION, UNSPECIFIED SNOMED Code(s): 23502845 (6) Esophageal dysmotility Current Visit: Yes Status: Acute Code(s): K22.4 - DYSKINESIA OF ESOPHAGUS SNOMED Code(s): 094236758 Plan: 1. Continue symptomatic and supportive care 2. Discontinue Protonix, will change back to Pepcid 20 mg daily 3. Antiemetics as needed 4. Replace electrolytes per protocol 5. Continue with Ensure 6. Encourage patient to eat, dietitian has been consulted 7. Psychiatry consulted for depression, discussed with nursing to notify them patient still not eating 8. Physical therapy consulted 9. Will order CT of the brain with and without contrast secondary to altered mental status/behavioral changes, nausea and vomiting 10. Rest of medical management per primary medical team Thank you for this consultation, we will continue to follow. Dr. Rabia Rodriguez I agree with the dictator's note, documented as a scribe by Jillian Mark.
[2024-05-05] MEDS ORDERED: METOCLOPRAMIDE 5 MG/ML 2 ML VIAL IVP PRN (10:45)
[2024-05-05] MEDS: POTASSIUM CHLORIDE ER 10 MEQ TAB.ER.PRT PO STA (11:29)
[2024-05-05 11:33] LABS: Glucose,Whole Blood 176 mg/dL (70-110)
--- NOTE | 2024-05-05 16:07 | CT ---
Head CT with and without contrast HISTORY: Altered mental status. COMPARISON: None TECHNIQUE: Multiple axial images are obtained from the skull base to vertex before and after the unev entful administration of nonionic IV contrast material. FINDINGS: The ventricles, basal cisterns and sulci over convexities are within normal limits for the patient's age and there is no mass effect or shift in midline structures. No abnormal density is seen throughout the brain parenchyma. There is no acute intra or extra-axial h emorrhage. Following contrast administration there is no pathological enhancement throughout the brain parenchym a. The posterior fossa including brain stem, fourth ventricle and cerebellopontine angles appear normal. Intraorbital contents appear normal and symmetric. Visualized paranasal sinuses and mastoid air cells are well aerated. The calvarium is intact. IMPRESSION: No significant abnormality seen. [facility], , 05/05/2024 4:05 PM
[2024-05-05 16:15] LABS: Glucose,Whole Blood 85 mg/dL (70-110)
--- NOTE | 2024-05-05 16:41 | P.PN ---
Subjective Progress Note Date: 05/05/24 Patient is a 69-year-old female with past medical history significant for [id number] diabetes mellitus, hypertension, hyperlipidemia presents to the emergency department with nausea/vomiting, diarrhea, decreased appetite since December gradually worsening over the last few weeks. 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 She has been unable to tolerate oral intake as everything upsets her stomach. She also reports intermittent cramping pain throughout the abdomen. She has had a 50 pound weight loss since January 2024. She reports that she had a CT abdomen performed at [facility] about 2 weeks ago which showed "inflammation of the intestines" as well as an EGD with Dr. Rodriguez about a week ago. She was in Dr. Rodriguez's office today who strongly recommended that she come to the ED due to dehydration and inability to tolerate oral intake. Of note she says that January 2023 she began taking Ozempic for total of 2 months, initially prescribed 5 mg and decreased to 2.5 mg but she was unable tolerate the medication. She states that she has not fully felt like herself since then. She denies fever, chest pain, dyspnea, hematuria, hematochezia/melena, hemateme sis. Initial vitals: BP 142/79, SD 85 bpm, 97.8 F, 99% on room air Initial labs: WBC 12, hemoglobin 13.3, platelets 374, PTT 20, sodium 135, potassium 2.4, chloride 96, CO2 19, BUN 11, creatinine 0.63, glucose 193, magnesium 1.3 Initial EKG: Supraventricular rhythm with ventricular rate 82 bpm, QTc 370 ms, mild ST-depression in lead II Initial CT abdomen/pelvis: Findings suggestive of acute gastritis/enteritis in addition to colitis likely related to infectious/inflammatory etiology; nonspecific intrahepatic and extrahepatic biliary ductal dilatation; intermediate left adrenal gland nodule Urinalysis: Trace protein, 1+ glucose, 4+ ketones, 1+ bilirubin, bacteria, 23 WBC, hyaline casts 04/28/2024 patient seen and examined at bedside. No new complaints. WBC 7.9, hemoglobin 11.4, hematocrit 34.8, platelet count 281,000, sodium 134, potassium 2.8, chloride 103, bicarb 21, BUN 8, creatinine 0.59, glucose 128, calcium 8.4 04/29/2024 patient seen and examined at bedside. Had episodes of diarrhea 3-4x with associated nausea and nonbilious nonbloody vomiting. Labs today showed WBC 7.5, hemoglobin 11.1, MCV 94.9, platelet count 251,000, sodium 135, potassium 3.5, chloride 104, bicarb 16, BUN 6, creatinine 0.56, glucose 162, TSH 2.77, morning consult 34.4 04/30/2024 patient seen and examined at bedside. No acute events overnight. No new complaints. still nauseated. gastric emptying scan was attempted but not done due to patient unable to tolerate any oral intake and nauseated. Labs today show WBC 7, hemoglobin 11.8, MCV 93, platelet count 102,000, sodium 132, potassium 3.1, chloride 103, bicarb 18, BUN 4, creatinine 0.53, glucose 130, calcium 8.3 05/01/2024 Patient seen and examined at bedside. No new complaints. Labs show WBC 6.4, hemoglobin 11.2, MCV 93.2, platelet count 234,000, sodium 132, potassium 2.8, BUN 2, creatinine 0.51, chloride 99, bicarb 22, glucose 120 calcium 8.2, magnesium 1.8. Upper GI series showed limited evaluation due to patient's immobility. Esophageal dysmotility. Gastric fundus within normal limits. 05/02/2024 patient seen and examined at bedside. No acute events overnight. No new complaints. Improved abdominal pain, no longer nauseated. She says her mood is better and she is regaining her appetite. Labs today show WBC 3.8, hemoglobin 10.5, MCV 90.9, platelet count 202,000, sodium 129, potassium 3, chloride 93, bicarb 29, BUN less than 2, creatinine 0.45, calcium 7.8, glucose 90 05/03/2024 Patient seen and examined at bedside. No acute events overnight. Had 50% of her dinner, 25% of lunch and breakfast. Denies any further nausea. 05/04/2024 patient seen and examined at bedside. No acute events overnight. Patient only had 25% of breakfast and 50% of afternoon snack, refused lunch and dinner. Still experiencing some nausea and diarrhea. Labs today showed WBC 6.36, hemoglobin 11, MCV 91.4, platelet count 1 59,000, sodium 140, potassium 3.9, chloride 101, bicarb 24, BUN 4, creatinine 0.6, glucose 159, calcium 7.9, magnesium 1.3 05/05/2024 patient seen and examined at bedside. No acute events overnight. Labs today showed WBC 4.9, hemoglobin 9.4, MCV 92.4, platelet count 1 55,000, sodium 130, potassium 3.2, chloride 99, BUN 5, creatinine 0.47, glucose 112, calcium 7.1. C. difficile EIA negative. Review of systems: Pertinent positives and negatives as discussed in HPI, a complete review of systems was performed and all other systems are negative. Pertinent imaging and labs reviewed. Physical examination: Vital signs reviewed General: non toxic, no distress, appears at stated age, frail looking Derm: no unusual rashes/lesions, warm Head: atraumatic, normocephalic, symmetric Eyes: EOMI, anicteric sclera, pupils equal round reactive to light ENT: Nose and ears atraumatic Neck: No cervical lymphadenopathy, trachea midline, supple Mouth: no lip lesion, mucus membranes moist Cardiovascular: S1S2 reg, grade 3/6 systolic murmur present best heard on 2nd right ICS Lungs: CTA bilateral, no rhonchi, no rales, no accessory muscle use Abdominal: soft, nontender, no guarding, nontender, bowel sounds appreciated Ext: muscle strength 5 out of 5 in all 4 extremities grossly, no gross muscle atrophy, no contractures, positive dorsalis pedis pulse bilateral, no edema Neuro: CN II-XI grossly intact, no gross focal neuro deficits Psych: Alert and oriented x3, appropriate affect and mood Assessment/Plan: Patient is a 69-year-old female with a past medical history significant for [id number] diabetes mellitus, hypertension, hyperlipidemia admitted for intractable nausea/vomiting and severe hypokalemia and required multiple electrolyte corrections. Patient found to have esophageal dysmotility on imaging. Admitted to feeling depressed. #. Esophageal dysmotility #. Chronic nausea/vomiting likely due to above #. Anion gap metabolic acidosis, resolved #. Hyponatremia #. Depression -Upper GI series showed limited evaluation due to patient's immobility. Esophageal dysmotility. Gastric fundus within normal limits. -CT abdomen/pelvis: Findings suggestive of acute gastritis/enteritis in addition to colitis likely related to infectious/inflammatory etiology; nonspecific - intrahepatic and extrahepatic biliary ductal dilatation; intermediate left adrenal gland nodule -Patient had recent upper endoscopy within the last 2 weeks. Not recommended by GI to repeat at this time -Appetite has improved since initiation of Remeron 75 mg at bedtime per psychiatry -Zofran 4 mg IV every 8 hours as needed for nausea -Added Reglan 5 mg IVPB every 6 hours for nausea -Placed on 0.9 normal saline with KCl 40 mEq at 75 cc/h by surgery -Initiate dronabinol 2.5 mg p.o. twice daily to increase appetite -GI consulted. Unable to tolerate gastric emptying study. May have component of diabetic gastroparesis -General surgery consulted. No surgical management required at this time. Advised oral pantoprazole 40 mg daily. Advised pured diet -Diet continue with consistent carbohydrate diet and Ensure -Patient advised to have small meals and properly chew foods #. Hypokalemia -Potassium 2.4 -> 2.6 -> 2.8 -> 3.1 -> 3.7 -> 3.1 -> 2.8 -> 3.0 -> 3.9 -> 3.2 -Continue telemetry monitoring -Placed on 0.9 normal saline with KCl 40 mEq 75 cc/h by surgery -Check magnesium at 2.1 Replete if low -Check potassium in the evening #. Hypomagnesemia, resolved Chronic #. Hypertension Continue home medications once confirmed #. Depression Continue Cymbalta 30 mg p.o. at bedtime #. Hyperlipidemia Continue Lipitor 20 mg p.o. at bedtime #. Diabetes -A1c 6.8 -Hold pioglitazone and Janumet -NovoLog ISS ACHS -Glucose Accu-Cheks ACHS. Monitor for hypoglycemia DVT prophylaxis: Lovenox 40 mg subcutaneous daily GI prophylaxis: Pantoprazole 40 mg daily F: 0.9 normal saline with KCl 40 mEq at 75 cc/h E: None for now N: consistent carbohydrate diet with Ensure A: Can ambulate with assistance CODE STATUS: Full Code Anticipated discharge place: Pending clinical course Lara Alonzo MD PGY-1/Geological Engineer Dictation was produced using [employer] dictation software. please excuse any grammatical, word or spelling errors. I have seen and evaluated the patient today. Discussed with the resident and agree with the residents finding and plan as documented in the resident's note. Changes highlighted in blue font. Patient likely needs subacute rehab placement. Objective - Vital Signs Vital signs: Vital Signs Temp 98.3 F 05/05/24 00:30 Pulse 89 05/05/24 00:30 Resp 18 05/05/24 00:30 BP 138/79 05/05/24 00:30 Pulse Ox 95 05/05/24 00:30 FiO2 Intake & Output 05/04/24 05/05/24 05/05/24 18:59 06:59 18:59 Weight 63.503 kg Other: Voiding Method Bedside Commode Diaper # Voids 4 3 # Bowel Movements 2 - Labs CBC & Chem 7: 05/05/24 04:51 05/05/24 04:51 Labs: Abnormal Lab Results - Last 24 Hours (Table) 05/04/24 05/04/24 05/04/24 Range/Units 06:01 06:01 11:33 RBC 3.70 L (4.10-5.20) X 10*6/uL Hgb 11.0 L (12.0-15.0) g/dL Hct 33.8 L (37.2-46.3) % RDW 16.7 H (11.5-14.5) % Immature Gran # 0.06 H (0.00-0.04) X 10*3/uL Lymphocytes # 0.52 L (0.90-5.00) X 10*3/uL Eosinophils # 0 L (0.04-0.35) X 10*3/uL Sodium (137-145) mmol/L Potassium (3.5-5.1) mmol/L Anion Gap 15.00 H (4.00-12.00) mmol/L BUN 4.0 L (9.0-27.0) mg/dL Creatinine (0.52-1.04) mg/dL BUN/Creatinine Ratio 6.67 L (12.00-20.00) Ratio Glucose 159 H (70-110) mg/dL POC Glucose (mg/dL) 201 H (70-110) mg/dL Calcium 7.9 L (8.7-10.3) mg/dL Magnesium 1.3 L (1.5-2.4) mg/dL 0305/05/24 05/05/24 Range/Units 19:58 04:51 04:51 RBC 3.13 L (4.10-5.20) X 10*6/uL Hgb 9.4 L D (12.0-15.0) g/dL Hct 28.9 L (37.2-46.3) % RDW 16.0 H (11.5-14.5) % Immature Gran # (0.00-0.04) X 10*3/uL Lymphocytes # 0.8 L (0.90-5.00) X 10*3/uL Eosinophils # (0.04-0.35) X 10*3/uL Sodium 130 L (137-145) mmol/L Potassium 3.2 L (3.5-5.1) mmol/L Anion Gap (4.00-12.00) mmol/L BUN 5 L (9.0-27.0) mg/dL Creatinine 0.47 L (0.52-1.04) mg/dL BUN/Creatinine Ratio (12.00-20.00) Ratio Glucose 112 H (70-110) mg/dL POC Glucose (mg/dL) 158 H (70-110) mg/dL Calcium 7.1 L (8.7-10.3) mg/dL Magnesium (1.5-2.4) mg/dL 05/05/24 Range/Units 06:16 RBC (4.10-5.20) X 10*6/uL Hgb (12.0-15.0) g/dL Hct (37.2-46.3) % RDW (11.5-14.5) % Immature Gran # (0.00-0.04) X 10*3/uL Lymphocytes # (0.90-5.00) X 10*3/uL Eosinophils # (0.04-0.35) X 10*3/uL Sodium (137-145) mmol/L Potassium (3.5-5.1) mmol/L Anion Gap (4.00-12.00) mmol/L BUN (9.0-27.0) mg/dL Creatinine (0.52-1.04) mg/dL BUN/Creatinine Ratio (12.00-20.00) Ratio Glucose (70-110) mg/dL POC Glucose (mg/dL) 130 H (70-110) mg/dL Calcium (8.7-10.3) mg/dL Magnesium (1.5-2.4) mg/dL
[2024-05-05 19:50] LABS: Glucose,Whole Blood 100 mg/dL (70-110)
[2024-05-06 06:18] LABS: Glucose,Whole Blood 88 mg/dL (70-110)
[2024-05-06 06:40] LABS: Basophils % (A) 0 %; Eosinophils # (A) 0.1 k/uL (0-0.7); Eosinophils % (A) 3 %; HCT 29.1 % (34.0-46.0); HGB 9.2 gm/dL (11.4-16.0); Hypochromasia Slight; Lymphocytes # (A) 1.2 k/uL (1.0-4.8); Lymphocytes % (A) 28 %; MCH 29.5 pg (25.0-35.0); MCHC 31.6 g/dL (31.0-37.0); MCV 93.3 fL (80.0-100.0); Mean Platelet Volume 7.4; Monocytes # (A) 0.4 k/uL (0-1.0); Monocytes % (A) 9 %; Neutrophils # (A) 2.4 k/uL (1.3-7.7); Neutrophils % (A) 57 %; Platelet Count 147 k/uL (150-450); RBC 3.12 m/uL (3.80-5.40); RDW 15.9 % (11.5-15.5); WBC 4.2 k/uL (3.8-10.6)
[2024-05-06 06:53] LABS: African American GFR (CKD) >90 (>60 ml/min/1.73 sqM); Anion Gap 1 mmol/L; Blood Urea Nitrogen 5 mg/dL (7-17); Calcium 7.3 mg/dL (8.4-10.2); Carbon Dioxide 27 mmol/L (22-30); Chloride 106 mmol/L (98-107); Glucose 81 mg/dL (74-99); Non-African American GFR(CKD) >90 (>60 ml/min/1.73 sqM); Potassium 4.4 mmol/L (3.5-5.1); Sodium 134 mmol/L (137-145)
[2024-05-06 11:35] LABS: Glucose,Whole Blood 125 mg/dL (70-110)
--- NOTE | 2024-05-06 14:18 | P.PN ---
Subjective Progress Note Date: 05/06/24 Principal diagnosis: Nausea and vomiting This is a pleasant 69-year-old female who has had ongoing nausea and vomiting for several months, even possibly for the last year and he has followed with Dr. Rodriguez in the office and was seen yesterday. She was noted to be dehydrated and weak and was sent over to the emergency department for further evaluation. On admission she was noted to be hyponatremic and hypokalemic as well as dehydrated. Patient has had increased nausea and vomiting over the last 2 2 days vomiting up to several times a day nonbilious nonbloody emesis. Prior to that vomiting is intermittent maybe 1 to 2 days a week however she has not been eating due to stomach getting upset. States that she is lost 40 pounds over the last few months duration. She had a recent EGD 2 weeks ago at [facility] with no significant findings, colonoscopy about 2 years ago. She underwent cholecystectomy for cholecystitis on 02/21/2024 at [facility]. Today she has not had any vomiting she is taking in some liquids. States she has had constipation and some loose stools. She is denying any abdominal pain. 04/29/2024 Patient seen and examined today as a follow-up. She states she had a bad night and she had nausea and vomiting. States she continues to have an upset stomach and feels gassy. She is scheduled for a gastric emptying study on Saturday. She cannot have any proton pump inhibitors. She had a couple episodes of diarrhea yesterday, stool was sent for stool studies however apparently had spilled. She denies any blood in her stool or emesis. She has had no further emesis this morning. Cortisol level 34.4 04/30/2024 Patient seen and examined this morning as a follow-up. She went down for her gastric emptying study however apparently when patient was asked to eat scrambled eggs for the study she said she could not and started having dry heaves. Patient has been refusing to eat. No vomiting. Just states that her s tomach is upset. 05/01/2024 Patient seen and examined this morning as a follow-up. She continues to stage that she is not eating. She is drinking her Ensure drinks. No nausea and vomiting. She did have some loose stools yesterday, nonbloody. Discussed with patient concerns for depression and patient states that she is depressed. This likely could be playing a role into why patient is not eating and she agrees. Patient is agreeable to see psychiatrist. She continues to deny any abdominal pain. 05/04/2024 Patient seen and examined today as a follow-up. She had her upper GI series on Saturday that reported limited evaluation due to patient's immobility. Esophageal dysmotility. Gastric fundus within normal limits. She was seen by psychiatry that did some medication adjustment. Patient states she is not eating much but she is trying. States she does not want to eat her pured food. Asking for chopped. States she still having some loose bowels. Stool samples have not been collected. She denies any abdominal pain, nausea or vomiting. Patient has remained hyponatremic and hypokalemic. General surgery following, decrease Protonix to once daily and patient on pured diet. Sodium and potassium improved today sodium 140 potassium 3.9 magnesium 1.3. 05/05/2024 Patient seen and examined today as a follow-up. She is lying in bed with very Salam look on her face. Physical therapy at bedside to evaluate and get patient up. Patient states she ate a little bit yesterday. Her diet was advanced to a chopped diet from pured as she said she would not eat her pured diet. She is drinking her Ensure. Patient does appear depressed and lack of interest. Today's sodium 138 potassium 3.2. Stool for C. difficile was negative. Patient denies any abdominal pain, no nausea or vomiting. 05/06/2024 Patient seen and examined today as a follow-up. She is sitting up in the chair with her daughter at the bedside. She is a little bit more interactive. States she is eating a little bit more. Apparently patient is requesting cottage cheese but having difficult time getting it and that is what she is wanting to eat. She had a CT of the brain with no acute findings. Denies any abdominal pain nausea or vomiting. States she had been also on medication in the past to increase her appetite from her primary care physician and had done well with that in the past. Objective - Vital Signs Vital signs: Vital Signs Temp 97.7 F 05/06/24 06:46 Pulse 79 05/06/24 08:48 Resp 17 05/06/24 08:48 BP 135/72 05/06/24 06:46 Pulse Ox 97 05/06/24 06:46 FiO2 Intake & Output 05/05/24 05/06/24 05/06/24 18:59 06:59 18:59 Output Total 1 Balance -1 Output: Stool 1 Other: Voiding Method Bedside Commode Toilet Toilet Diaper Diaper Diaper Incontinent Incontinent # Voids 4 4 # Bowel Movements 3 - Exam General appearance: The patient is alert, oriented, appears in no acute distress. Patient still appears somewhat depressed but a little more interactive today. HET: Head is normocephalic and atraumatic. Conjunctiva pink. Sclera anicteric. Neck: Supple without lymphadenopathy. Abdomen: Soft, nontender, nondistended. Extremities: Normal skin color and turgor. No pedal edema Skin: No rashes, no jaundice Neurological: No focal deficits. Alert and oriented. - Labs CBC & Chem 7: 05/06/24 05:42 05/06/24 05:42 Labs: Abnormal Lab Results - Last 24 Hours (Table) 05/05/24 05/06/24 05/06/24 Range/Units 11:32 05:42 05:42 RBC 3.12 L (3.80-5.40) m/uL Hgb 9.2 L (11.4-16.0) gm/dL Hct 29.1 L (34.0-46.0) % RDW 15.9 H (11.5-15.5) % Plt Count 147 L (150-450) k/uL Sodium 134 L (137-145) mmol/L BUN 5 L (7-17) mg/dL Creatinine 0.51 L (0.52-1.04) mg/dL POC Glucose (mg/dL) 176 H (70-110) mg/dL Calcium 7.3 L (8.4-10.2) mg/dL Assessment and Plan (1) Nausea and vomiting Narrative/Plan: Chronic nausea and vomiting superimposed by acute episodes over the last couple days duration mixed with some chronic constipation with recent diarrhea. Symptoms have been ongoing she had recent upper endoscopy 2 weeks ago for further evaluation of the nausea and vomiting at [facility] without any significant findings. Last colonoscopy about 2 years ago. She had recent cholecystectomy done in February 2024 however symptoms had preceded that for months. Unclear etiology of nausea and vomiting. Recommend fasting cortisol level and gastric emptying study. Cortisol level normal, gastric emptying study tentatively scheduled for Saturday. Gastric emptying study ordered, could not be completed secondary to patient refusing to eat and stating that she has no appetite and upset stomach. Patient is diabetic, can consider possible diabetic gastroparesis. Discussed with patient and it is important that patient eats small amount of meals, menu given to patient to choose her foods. Will continue with symptomatic treatment with antiemetics. Patient's nausea and vomiting is completely resolved. She had undergone upper GI series again poor study secondary to patient mobility. Does show esophageal dysmotility, which has been discussed with patient to eat small meals, encourage activity. Nausea and vomiting has been resolved. Patient continues to eat very small amounts but it is improving. Appears more likely secondary to depression. Recommend outpatient follow-up. Current Visit: Yes Status: Acute Code(s): R11.2 - NAUSEA WITH VOMITING, UNSPECIFIED SNOMED Code(s): 19128969 (2) Hypokalemia Narrative/Plan: Resolved Current Visit: Yes Status: Acute Code(s): E87.6 - HYPOKALEMIA SNOMED Code(s): 73808976 (3) Hypomagnesemia Current Visit: Yes Status: Acute Code(s): E83.42 - HYPOMAGNESEMIA SNOMED Code(s): 032548665 (4) Dilated intrahepatic bile duct Current Visit: Yes Status: Acute Code(s): K83.8 - OTHER SPECIFIED DISEASES OF BILIARY TRACT SNOMED Code(s): 184299798 (5) Depression Current Visit: Yes Status: Acute Code(s): F32.A - DEPRESSION, UNSPECIFIED SNOMED Code(s): 68780008 (6) Esophageal dysmotility Narrative/Plan: Recommend small frequent meals. Current Visit: Yes Status: Acute Code(s): K22.4 - DYSKINESIA OF ESOPHAGUS SNOMED Code(s): 036312685 Plan: 1. Continue symptomatic and supportive care 2. Pepcid 20 mg daily 3. Antiemetics as needed 4. Diet as tolerated. Glucerna with meals 5. Psychiatry consulted for depression 6. Brain CT was ordered, no acute findings 7. Continue with recommendations from dietitian 8. Discussed with patient importance of eating, recommend small frequent meals secondary to esophageal dysmotility 9. Outpatient follow-up with gastroenterology, can consider gastric emptying study at that time 10. Rest of medical management per primary medical team 11. Patient is cleared from gastroenterology for discharge if she continues to improve with her diet/eating, likely tomorrow. Consider reevaluation with dietitian prior to discharge. Thank you for this consultation, we will continue to follow. Dr. Rabia Rodriguez I agree with the dictator's note, documented as a scribe by Jillian Mark.
--- NOTE | 2024-05-06 14:33 | CDI ---
Documentation Clarification Form Date: 05/06/2024 02:11:04 PM From: Monika Pinedo RN CCDS Phone: [phone] Admit Date: 04/27/2024 10:22:00 PM Patient Name: Christa Marinelli Visit Number: [id number] Discharge Date: ATTENTION: The Clinical Documentation Specialists (CDI) and [facility] Coding Staff appreciate your assistance in clarifying documentation. Please respond to the clarification below the line at the bottom and electronically sign. The CDI & [facility] Coding staff will review the response and follow-up if needed. Please note: Queries are made part of the Legal Health Record. If you have any questions, please contact the author of this message via ITS. Doctor: Yaniv Rincon The patient presented to ED for dehydration, malnutrition due to persistent nausea, vomiting and diarrhea for the past several months. Based on this information and the findings below, is there an additional diagnosis that is clinically appropriate for this patient? History/Risk Factors: 69 year old female presents to the ED for dehydration and malnutrition. Medical History: HTN, Depression, HLD, DVT, DM and HLD. 04/27 HP Clinical Indicators: 04/27, HP: She has had a 50 pound weight loss since January 2024. Current BMI: 25.6kg Dietitian Nutrition assessment, 05/04: Nutrition intake, fair. Percent consumed 25-50%, Consistent CHO diet. Nutritional concerns: Difficulty swallowing. Pt doesnt have her dentures. Appetite poor. Weight 63.503kg stated by patient 5ft 2inches. Nutritional Diagnosis: inadequate energy intake related to: nausea, vomiting, diarrhea, refusing clear liquids, Patient was downgraded to a pureed texture diet today due to not having her dentures and having difficulty chewing. Drinking 50% average of glucerna shakes. 05/01, UGI: Limited evaluation due to patients immobility. Esophageal dysmotility. Gastric fundus within normal limits. 05/04 GI note: She had her upper GI series on Saturday that reported limited evaluation due to patient's immobility. Esophageal dysmotility. Gastric fundus within normal limits. She was seen by psychiatry that did some medication adjustment. Patient states she is not eating much but she is trying. States she does not want to eat her pured food. Treatment: Reglan IVPB Q6 HR, Zofran IV Q8H PRN, Monitor PO intake and Supplement intake. Supplements: Glucerna TID Is there an additional diagnosis that is clinically appropriate for this patient? [ ] Mild Protein Calorie Malnutrition [ x ] Moderate Protein-Calorie Malnutrition [ ] Severe Protein-Calorie Malnutrition [ ] No additional diagnosis/Not clinically significant [ ] Other condition, please specify [ ] Unable to Determine (Template Last Revised: September 2022) MTDD
--- NOTE | 2024-05-06 15:42 | P.PN ---
Subjective Progress Note Date: 05/06/24 Patient is a 69-year-old female with past medical history significant for [id number]-imnvoapcz diabetes mellitus, hypertension, hyperlipidemia presents to the emergency department with nausea/vomiting, diarrhea, decreased appetite since December gradually worsening over the last few weeks. 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 She has been unable to tolerate oral intake as everything upsets her stomach. She also reports intermittent cramping pain throughout the abdomen. She has had a 50 pound weight loss since January 2024. She reports that she had a CT abdomen performed at [facility] about 2 weeks ago which showed "inflammation of the intestines" as well as an EGD with Dr. Rodriguez about a week ago. She was in Dr. Rodriguez's office today who strongly recommended that she come to the ED due to dehydration and inability to tolerate oral intake. Of note she says that January 2023 she began taking Ozempic for total of 2 months, initially prescribed 5 mg and decreased to 2.5 mg but she was unable tolerate the medication. She states that she has not fully felt like herself since then. She denies fever, chest pain, dyspnea, hematuria, hematochezia/melena, hemateme sis. Initial vitals: BP 142/79, UT 85 bpm, 97.8 F, 99% on room air Initial labs: WBC 12, hemoglobin 13.3, platelets 374, PTT 20, sodium 135, potassium 2.4, chloride 96, CO2 19, BUN 11, creatinine 0.63, glucose 193, magnesium 1.3 Initial EKG: Supraventricular rhythm with ventricular rate 82 bpm, QTc 370 ms, mild ST-depression in lead II Initial CT abdomen/pelvis: Findings suggestive of acute gastritis/enteritis in addition to colitis likely related to infectious/inflammatory etiology; nonspecific intrahepatic and extrahepatic biliary ductal dilatation; intermediate left adrenal gland nodule Urinalysis: Trace protein, 1+ glucose, 4+ ketones, 1+ bilirubin, bacteria, 23 WBC, hyaline casts 04/28/2024 patient seen and examined at bedside. No new complaints. WBC 7.9, hemoglobin 11.4, hematocrit 34.8, platelet count 281,000, sodium 134, potassium 2.8, chloride 103, bicarb 21, BUN 8, creatinine 0.59, glucose 128, calcium 8.4 04/29/2024 patient seen and examined at bedside. Had episodes of diarrhea 3-4x with associated nausea and nonbilious nonbloody vomiting. Labs today showed WBC 7.5, hemoglobin 11.1, MCV 94.9, platelet count 251,000, sodium 135, potassium 3.5, chloride 104, bicarb 16, BUN 6, creatinine 0.56, glucose 162, TSH 2.77, morning consult 34.4 04/30/2024 patient seen and examined at bedside. No acute events overnight. No new complaints. still nauseated. gastric emptying scan was attempted but not done due to patient unable to tolerate any oral intake and nauseated. Labs today show WBC 7, hemoglobin 11.8, MCV 93, platelet count 102,000, sodium 132, potassium 3.1, chloride 103, bicarb 18, BUN 4, creatinine 0.53, glucose 130, calcium 8.3 05/01/2024 Patient seen and examined at bedside. No new complaints. Labs show WBC 6.4, hemoglobin 11.2, MCV 93.2, platelet count 234,000, sodium 132, potassium 2.8, BUN 2, creatinine 0.51, chloride 99, bicarb 22, glucose 120 calcium 8.2, magnesium 1.8. Upper GI series showed limited evaluation due to patient's immobility. Esophageal dysmotility. Gastric fundus within normal limits. 05/02/2024 patient seen and examined at bedside. No acute events overnight. No new complaints. Improved abdominal pain, no longer nauseated. She says her mood is better and she is regaining her appetite. Labs today show WBC 3.8, hemoglobin 10.5, MCV 90.9, platelet count 202,000, sodium 129, potassium 3, chloride 93, bicarb 29, BUN less than 2, creatinine 0.45, calcium 7.8, glucose 90 05/03/2024 Patient seen and examined at bedside. No acute events overnight. Had 50% of her dinner, 25% of lunch and breakfast. Denies any further nausea. 05/04/2024 patient seen and examined at bedside. No acute events overnight. Patient only had 25% of breakfast and 50% of afternoon snack, refused lunch and dinner. Still experiencing some nausea and diarrhea. Labs today showed WBC 6.36, hemoglobin 11, MCV 91.4, platelet count 1 59,000, sodium 140, potassium 3.9, chloride 101, bicarb 24, BUN 4, creatinine 0.6, glucose 159, calcium 7.9, magnesium 1.3 05/05/2024 patient seen and examined at bedside. No acute events overnight. Labs today showed WBC 4.9, hemoglobin 9.4, MCV 92.4, platelet count 1 55,000, sodium 130, potassium 3.2, chloride 99, BUN 5, creatinine 0.47, glucose 112, calcium 7.1. C. difficile EIA negative. 05/06/2024 patient seen and examined at bedside. No acute events overnight. No new complaints. Only had 25% lunch and 10% breakfast yesterday. Labs today showed WBC 4.2, hemoglobin 9.2, MCV 93.3, platelet count 1 47,000, sodium 134, potassium 4.4, chloride 106, bicarb 27, BUN 5, creatinine 0.51, glucose 81, calcium 7.3. Brain CT done showed no acute intracranial process/abnormality. Review of systems: Pertinent positives and negatives as discussed in HPI, a complete review of systems was performed and all other systems are negative. Pertinent imaging and labs reviewed. Physical examination: Vital signs reviewed General: non toxic, no distress, appears at stated age, frail looking Derm: no unusual rashes/lesions, warm Head: atraumatic, normocephalic, symmetric Eyes: EOMI, anicteric sclera, pupils equal round reactive to light ENT: Nose and ears atraumatic Neck: No cervical lymphadenopathy, trachea midline, supple Mouth: no lip lesion, mucus membranes moist Cardiovascular: S1S2 reg, grade 3/6 systolic murmur present best heard on 2nd ri ght ICS Lungs: CTA bilateral, no rhonchi, no rales, no accessory muscle use Abdominal: soft, nontender, no guarding, nontender, bowel sounds appreciated Ext: muscle strength 5 out of 5 in all 4 extremities grossly, no gross muscle atrophy, no contractures, positive dorsalis pedis pulse bilateral, no edema Neuro: CN II-XI grossly intact, no gross focal neuro deficits Psych: Alert and oriented x3, appropriate affect and mood Assessment/Plan: Patient is a 69-year-old female with a past medical history significant for [id number]-bfhokkjwm diabetes mellitus, hypertension, hyperlipidemia admitted for intractable nausea/vomiting and severe hypokalemia and required multiple electrolyte corrections. Patient found to have esophageal dysmotility on imaging. Admitted to feeling depressed. #. Esophageal dysmotility #. Chronic nausea/vomiting likely due to above #. Anion gap metabolic acidosis, resolved #. Hyponatremia #. Depression -Upper GI series showed limited evaluation due to patient's immobility. Esophageal dysmotility. Gastric fundus within normal limits. -CT abdomen/pelvis: Findings suggestive of acute gastritis/enteritis in addition to colitis likely related to infectious/inflammatory etiology; nonspecific - intrahepatic and extrahepatic biliary ductal dilatation; intermediate left adrenal gland nodule -Patient had recent upper endoscopy within the last 2 weeks. Not recommended by GI to repeat at this time -Continue Remeron 75 mg at bedtime per psychiatry -Zofran 4 mg IV every 8 hours as needed for nausea -Added Reglan 5 mg IVPB every 6 hours for nausea -Placed on 0.9 normal saline with KCl 40 mEq at 75 cc/h by surgery -Initiate dronabinol 2.5 mg p.o. twice daily to increase appetite -GI consulted. Unable to tolerate gastric emptying study. May have component of diabetic gastroparesis -General surgery consulted. No surgical management required at this time. Advised oral pantoprazole 40 mg daily. Advised pured diet -Diet continue with consistent carbohydrate diet and Ensure. -Patient advised to have small meals and properly chew foods -PT OT consulted. RJ recommended -Patient requested to be discharge on home care. Case management setting up discharge needs. #. Hypokalemia, resolved -Potassium 2.4 -> 2.6 -> 2.8 -> 3.1 -> 3.7 -> 3.1 -> 2.8 -> 3.0 -> 3.9 -> 3.2 -> 4.4 -Continue telemetry monitoring -Placed on 0.9 normal saline with KCl 40 mEq 75 cc/h by surgery #. Hypomagnesemia, resolved Chronic #. Hypertension Continue home medications once confirmed #. Depression Continue Cymbalta 30 mg p.o. at bedtime #. Hyperlipidemia Continue Lipitor 20 mg p.o. at bedtime #. Diabetes -A1c 6.8 -Hold pioglitazone and Janumet -NovoLog ISS ACHS -Glucose Accu-Cheks ACHS. Monitor for hypoglycemia DVT prophylaxis: Lovenox 40 mg subcutaneous daily GI prophylaxis: Pantoprazole 40 mg daily F: 0.9 normal saline with KCl 40 mEq at 75 cc/h E: None for now N: consistent carbohydrate diet with Ensure A: Can ambulate with assistance CODE STATUS: Full Code Anticipated discharge place: Pending clinical course Lara Alonzo MD PGY-1/Electrical Products Engineer Dictation was produced using [employer] dictation software. please excuse any grammatical, word or spelling errors. I have seen and evaluated the patient today. Discussed with the resident and agree with the residents finding and plan as documented in the resident's note. Changes highlighted in blue font. Objective - Vital Signs Vital signs: Vital Signs Temp 97.7 F 05/06/24 06:46 Pulse 79 05/06/24 06:46 Resp 17 05/06/24 06:46 BP 135/72 05/06/24 06:46 Pulse Ox 97 05/06/24 06:46 FiO2 Intake & Output 05/05/24 05/06/24 05/06/24 18:59 06:59 18:59 Output Total 1 Balance -1 Output: Stool 1 Other: Voiding Method Bedside Commode Toilet Diaper Diaper Incontinent # Voids 4 4 # Bowel Movements 3 - Labs CBC & Chem 7: 05/06/24 05:42 05/06/24 05:42 Labs: Abnormal Lab Results - Last 24 Hours (Table) 05/05/24 05/06/24 05/06/24 Range/Units 11:32 05:42 05:42 RBC 3.12 L (3.80-5.40) m/uL Hgb 9.2 L (11.4-16.0) gm/dL Hct 29.1 L (34.0-46.0) % RDW 15.9 H (11.5-15.5) % Plt Count 147 L (150-450) k/uL Sodium 134 L (137-145) mmol/L BUN 5 L (7-17) mg/dL Creatinine 0.51 L (0.52-1.04) mg/dL POC Glucose (mg/dL) 176 H (70-110) mg/dL Calcium 7.3 L (8.4-10.2) mg/dL
[2024-05-06 16:46] LABS: Glucose,Whole Blood 179 mg/dL (70-110)
[2024-05-06] MEDS: droNABinol 2.5 MG CAP PO SCH (16:51)
[2024-05-06 20:02] LABS: Glucose,Whole Blood 102 mg/dL (70-110)
[2024-05-07 06:18] LABS: Glucose,Whole Blood 93 mg/dL (70-110)
[2024-05-07 06:39] LABS: African American GFR (CKD) >90 (>60 ml/min/1.73 sqM); Anion Gap 3 mmol/L; Blood Urea Nitrogen 4 mg/dL (7-17); Calcium 7.5 mg/dL (8.4-10.2); Carbon Dioxide 26 mmol/L (22-30); Chloride 105 mmol/L (98-107); Glucose 96 mg/dL (74-99); Non-African American GFR(CKD) >90 (>60 ml/min/1.73 sqM); Potassium 4.4 mmol/L (3.5-5.1); Sodium 134 mmol/L (137-145)
[2024-05-07 08:43] VITALS: BP 136/83; PULSE 76; RESP 20; TEMP 97.6
[2024-05-07 11:36] LABS: Glucose,Whole Blood 97 mg/dL (70-110)
--- NOTE | 2024-05-07 15:54 | P.DS ---
Providers Date of admission: 04/27/24 22:22 Expected date of discharge: 05/07/24 Attending physician: Soheila Rayo MD Consults: 04/27/24 22:22 Consult Physician Urgent Consulting Provider: Diann Rodriguez Consult Reason/Comments: intractable n/v Do you want consulting provider notified?: Yes 05/01/24 07:04 Consult Physician Routine Consulting Provider: Darwin Wong Consult Reason/Comments: Depression, not eating, GI testing has been negative to date Do you want consulting provider notified?: Yes Primary care physician: Joss Ayala [facility] Course: Hospital Course: Patient is a 69-year-old female with past medical history significant for [id number] diabetes mellitus, hypertension, hyperlipidemia presents to the emergency department with nausea/vomiting, diarrhea, decreased appetite since December gradually worsening over the last few weeks. 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 She has been unable to tolerate oral intake as everything upsets her stomach. She also reports intermittent cramping pain throughout the abdomen. She has had a 50 pound weight loss since January 2024. She reports that she had a CT abdomen performed at [facility] about 2 weeks ago which showed "inflammation of the intestines" as well as an EGD with Dr. Rodriguez about a week ago. She was in Dr. Rodriguez's office today who strongly recommended that she come to the ED due to dehydration and inability to tolerate oral intake. Of note she says that January 2023 she began taking Ozempic for total of 2 months, initially prescribed 5 mg and decreased to 2.5 mg but she was unable tolerate the medication. She states that she has not fully felt like herself since then. She denies fever, chest pain, dyspnea, hematuria, hematochezia/melena, h ematemesis. Initial vitals: BP 142/79, IA 85 bpm, 97.8 F, 99% on room air Initial labs: WBC 12, hemoglobin 13.3, platelets 374, PTT 20, sodium 135, potassium 2.4, chloride 96, CO2 19, BUN 11, creatinine 0.63, glucose 193, magnesium 1.3 Initial EKG: Supraventricular rhythm with ventricular rate 82 bpm, QTc 370 ms, mild ST-depression in lead II Initial CT abdomen/pelvis: Findings suggestive of acute gastritis/enteritis in addition to colitis likely related to infectious/inflammatory etiology; nonspecific intrahepatic and extrahepatic biliary ductal dilatation; intermediate left adrenal gland nodule Urinalysis: Trace protein, 1+ glucose, 4+ ketones, 1+ bilirubin, bacteria, 23 WBC, hyaline casts Patient was admitted for an evaluation of intractable nausea/vomiting and severe hypokalemia. Ordered potassium chloride for repletion, GI prophylaxis with PPIs, Zofran, and cardiac telemetry. GI and general surgery consulted. General surgery recommended no surgical intervention at this time. Gastric emptying study ordered but patient was not able to tolerate due to persistent nausea. Upper GI series ordered and showed esophageal dysmotility. Patient had multiple electrolyte imbalances with magnesium and potassium and has now been corrected. Patient had decreased appetite and was found to have depression and psychiatry was consulted. Initiated Cymbalta, Remeron and dronabinol to increase appetite. Patient symptoms improved throughout hospital stay. Patient is cleared for discharge today with home care and was prescribed Reglan p.o., Remeron p.o., Cymbalta p.o., and dronabinol p.o. We discontinued her home hydrochlorothiazide and Zofran p.o. patient is advised to follow-up with PCP and helicopter engineer on outpatient basis. Final Diagnosis: #. Esophageal dysmotility #. Depression #. Hypokalemia, resolved #. Hypomagnesemia, resolved #. Hyponatremia, stable #. Hypertension #. Hyperlipidemia #. Type 2 Diabetes Physical examination: Vital signs reviewed General: non toxic, no distress, frail appearing Derm: no unusual rashes/lesions, warm Head: atraumatic, normocephalic, symmetric Eyes: EOMI, anicteric sclera, pupils equal round reactive to light ENT: Nose and ears atraumatic Neck: No cervical lymphadenopathy, trachea midline, supple Mouth: no lip lesion, mucus membranes moist Cardiovascular: S1S2 reg, grade 3/6 systolic murmur present best heard on 2nd right ICS Lungs: CTA bilateral, no rhonchi, no rales, no accessory muscle use Abdominal: soft, nondistended, nontender to palpation, no guarding Ext: muscle strength 5 out of 5 in all 4 extremities grossly, no gross muscle atrophy, no contractures, positive dorsalis pedis pulse bilateral, no edema Neuro: CN II-XI grossly intact, no gross focal neuro deficits Psych: Alert, oriented, appropriate affect and mood A total of 36 minutes of time were spent preparing this complex discharge summary. Patient was discharged on 05/07/2024 at 1022. I have seen and evaluated the patient today. Discussed with the resident and agree with the residents finding and plan as documented in the resident's note. Changes highlighted in blue font. Patient Condition at Discharge: Stable Plan - Discharge Summary Discharge Rx Participant: No New Discharge Prescriptions: New Metoclopramide [Reglan] 5 mg PO ACHS #90 tab Mirtazapine [Remeron] 7.5 mg PO HS #90 tab Artificial Tears-Hypromellose [Artificial Tear Drops] 1 drops RIGHT EYE TID #14 ml DULoxetine HCL [Cymbalta] 30 mg PO HS #90 cap droNABinol [Marinol] 5 mg PO AC-BID #60 cap Continue Famotidine [Pepcid] 40 mg PO DAILY Rosuvastatin Calcium [Crestor] 5 mg PO DAILY Pioglitazone [Actos] 30 mg PO DAILY sitaGLIPtin PHOS/metFORMIN HCL [Janumet 50-1,000 mg Tablet] 1 tab PO BID Promethazine HCl 12.5 mg PO QID PRN PRN Reason: Nausea Discontinued hydroCHLOROthiazide [Hydrodiuril] 25 mg PO DAILY Ondansetron [Zofran] 4 mg PO BID Discharge Medication List Famotidine [Pepcid] 40 mg PO DAILY 04/28/24 [History] Pioglitazone [Actos] 30 mg PO DAILY 04/28/24 [History] Promethazine HCl 12.5 mg PO QID PRN 04/28/24 [History] Rosuvastatin Calcium [Crestor] 5 mg PO DAILY 04/28/24 [History] sitaGLIPtin PHOS/metFORMIN HCL [Janumet 50-1,000 mg Tablet] 1 tab PO BID 04/28/24 [History] Artificial Tears-Hypromellose [Artificial Tear Drops] 1 drops RIGHT EYE TID #14 ml 05/07/24 [Rx] DULoxetine HCL [Cymbalta] 30 mg PO HS #90 cap 05/07/24 [Rx] Metoclopramide [Reglan] 5 mg PO ACHS #90 tab 05/07/24 [Rx] Mirtazapine [Remeron] 7.5 mg PO HS #90 tab 05/07/24 [Rx] droNABinol [Marinol] 5 mg PO AC-BID #60 cap 05/07/24 [Rx] Follow up Appointment(s)/Referral(s): Joss Soto MD [Primary Care Provider] - 1-2 days (Please call office for your appointment) Diann Rodriguez MD [STAFF PHYSICIAN] - 05/13/24 2:30 pm [facility], [NON-STAFF] - As Needed ([facility] will call you to schedule your in home nursing, physical therapy, and occupational therapy visits. ) Patient Instructions/Handouts: Depression (DC) Activity/Diet/Wound Care/Special Instructions: Please follow up with PCP and [employer] Chemist Discharge/Stand Alone Forms: Outpatient Counseling Discharge Disposition: HOME WITH HOME HEALTH SERVICES
--- NOTE | 2024-05-07 16:04 | P.PN ---
Subjective Progress Note Date: 05/07/24 Principal diagnosis: Nausea and vomiting This is a pleasant 69-year-old female who has had ongoing nausea and vomiting for several months, even possibly for the last year and he has followed with Dr. Rodriguez in the office and was seen yesterday. She was noted to be dehydrated and weak and was sent over to the emergency department for further evaluation. On admission she was noted to be hyponatremic and hypokalemic as well as dehydrated. Patient has had increased nausea and vomiting over the last 2 2 days vomiting up to several times a day nonbilious nonbloody emesis. Prior to that vomiting is intermittent maybe 1 to 2 days a week however she has not been eating due to stomach getting upset. States that she is lost 40 pounds over the last few months duration. She had a recent EGD 2 weeks ago at [facility] with no significant findings, colonoscopy about 2 years ago. She underwent cholecystectomy for cholecystitis on 02/21/2024 at [facility]. Today she has not had any vomiting she is taking in some liquids. States she has had constipation and some loose stools. She is denying any abdominal pain. 04/29/2024 Patient seen and examined today as a follow-up. She states she had a bad night and she had nausea and vomiting. States she continues to have an upset stomach and feels gassy. She is scheduled for a gastric emptying study on Saturday. She cannot have any proton pump inhibitors. She had a couple episodes of diarrhea yesterday, stool was sent for stool studies however apparently had spilled. She denies any blood in her stool or emesis. She has had no further emesis this morning. Cortisol level 34.4 04/30/2024 Patient seen and examined this morning as a follow-up. She went down for her gastric emptying study however apparently when patient was asked to eat scrambled eggs for the study she said she could not and started having dry heaves. Patient has been refusing to eat. No vomiting. Just states that her s tomach is upset. 05/01/2024 Patient seen and examined this morning as a follow-up. She continues to stage that she is not eating. She is drinking her Ensure drinks. No nausea and vomiting. She did have some loose stools yesterday, nonbloody. Discussed with patient concerns for depression and patient states that she is depressed. This likely could be playing a role into why patient is not eating and she agrees. Patient is agreeable to see psychiatrist. She continues to deny any abdominal pain. 05/04/2024 Patient seen and examined today as a follow-up. She had her upper GI series on Saturday that reported limited evaluation due to patient's immobility. Esophageal dysmotility. Gastric fundus within normal limits. She was seen by psychiatry that did some medication adjustment. Patient states she is not eating much but she is trying. States she does not want to eat her pured food. Asking for chopped. States she still having some loose bowels. Stool samples have not been collected. She denies any abdominal pain, nausea or vomiting. Patient has remained hyponatremic and hypokalemic. General surgery following, decrease Protonix to once daily and patient on pured diet. Sodium and potassium improved today sodium 140 potassium 3.9 magnesium 1.3. 05/05/2024 Patient seen and examined today as a follow-up. She is lying in bed with very Salam look on her face. Physical therapy at bedside to evaluate and get patient up. Patient states she ate a little bit yesterday. Her diet was advanced to a chopped diet from pured as she said she would not eat her pured diet. She is drinking her Ensure. Patient does appear depressed and lack of interest. Today's sodium 138 potassium 3.2. Stool for C. difficile was negative. Patient denies any abdominal pain, no nausea or vomiting. 05/06/2024 Patient seen and examined today as a follow-up. She is sitting up in the chair with her daughter at the bedside. She is a little bit more interactive. States she is eating a little bit more. Apparently patient is requesting cottage cheese but having difficult time getting it and that is what she is wanting to eat. She had a CT of the brain with no acute findings. Denies any abdominal pain nausea or vomiting. States she had been also on medication in the past to increase her appetite from her primary care physician and had done well with that in the past. 625 Patient seen and examined today as a follow-up. Sitting up in her bed. States that she has been eating a little bit more for dinner and today's breakfast. Continues to drink her Glucerna protein shakes. Denies any abdominal pain, nausea or vomiting. Potassium has been stable, today 4.4. Objective - Vital Signs Vital signs: Vital Signs Temp 97.6 F 05/07/24 08:00 Pulse 76 05/07/24 08:00 Resp 20 05/07/24 08:00 BP 136/83 05/07/24 08:00 Pulse Ox 100 05/07/24 08:00 FiO2 Intake & Output 05/06/24 05/07/24 05/07/24 18:59 06:59 18:59 Intake Total 120 Balance 120 Intake: Oral 120 Other: Voiding Method Toilet Toilet Diaper Incontinent # Voids 3 4 # Bowel Movements 1 - Exam General appearance: The patient is alert, oriented, appears in no acute distress. Patient still appears somewhat depressed but a little more interactive today. HET: Head is normocephalic and atraumatic. Conjunctiva pink. Sclera anicteric. Neck: Supple without lymphadenopathy. Abdomen: Soft, nontender, nondistended. Extremities: Normal skin color and turgor. No pedal edema Skin: No rashes, no jaundice Neurological: No focal deficits. Alert and oriented. - Labs CBC & Chem 7: 05/06/24 05:42 05/07/24 05:46 Labs: Abnormal Lab Results - Last 24 Hours (Table) 05/06/24 05/06/24 05/07/24 Range/Units 11:34 16:45 05:46 Sodium 134 L (137-145) mmol/L BUN 4 L (7-17) mg/dL POC Glucose (mg/dL) 125 H 179 H (70-110) mg/dL Calcium 7.5 L (8.4-10.2) mg/dL Assessment and Plan (1) Nausea and vomiting Narrative/Plan: Chronic nausea and vomiting superimposed by acute episodes over the last couple days duration mixed with some chronic constipation with recent diarrhea. Symptoms have been ongoing she had recent upper endoscopy 2 weeks ago for further evaluation of the nausea and vomiting at [facility] without any significant findings. Last colonoscopy about 2 years ago. She had recent cholecystectomy done in February 2024 however symptoms had preceded that for months. Unclear etiology of nausea and vomiting. Recommend fasting cortisol level and gastric emptying study. Cortisol level normal, gastric emptying study tentatively scheduled for Saturday. Gastric emptying study ordered, could not be completed secondary to patient refusing to eat and stating that she has no appetite and upset stomach. Patient is diabetic, can consider possible diabetic gastroparesis. Discussed with patient and it is important that patient eats small amount of meals, menu given to patient to choose her foods. Will continue with symptomatic treatment with antiemetics. Patient's nausea and vomiting is completely resolved. She had undergone upper GI series again poor study secondary to patient mobility. Does show esophageal dysmotility, which has been discussed with patient to eat small meals, encourage activity. Nausea and vomiting has been resolved. Patient continues to eat very small amounts but it is improving. Appears more likely secondary to depression. Recommend outpatient follow-up. Status: Acute Code(s): R11.2 - NAUSEA WITH VOMITING, UNSPECIFIED SNOMED Code(s): 18750396 (2) Hypokalemia Narrative/Plan: Resolved Status: Acute Code(s): E87.6 - HYPOKALEMIA SNOMED Code(s): 56778054 (3) Hypomagnesemia Narrative/Plan: Resolved Status: Acute Code(s): E83.42 - HYPOMAGNESEMIA SNOMED Code(s): 894497117 (4) Depression Status: Acute Code(s): F32.A - DEPRESSION, UNSPECIFIED SNOMED Code(s): 88093402 (5) Esophageal dysmotility Narrative/Plan: Recommend small frequent meals. Status: Acute Code(s): K22.4 - DYSKINESIA OF ESOPHAGUS SNOMED Code(s): 557948919 Plan: 1. Continue symptomatic and supportive care 2. Diet as tolerated 3. Continue Glucerna protein shakes 4. Recommend small frequent meals secondary to esophageal dysmotility 5. Continue Pepcid 20 mg daily 6. Patient is cleared for discharge from gastroenterology. Recommend follow-up in 1 to 2 weeks. Thank you for this consultation, we will sign off at this time. Dr. Rabia Rodriguez I agree with the dictator's note, documented as a scribe by Jillian Mark.
== END 2024-05-07 15:26 | disposition home health service (06) | DRG 392 ==
LOC: EC 17:01 → 4SSUR 22:22
PROVIDERS: ADMIT Internal Medicine; ATTEND Internal Medicine
DX: K29.00 Acute gastritis without bleeding (principal); E44.0 Moderate protein-calorie malnutrition; E87.20 Acidosis, unspecified; E87.1 Hypo-osmolality and hyponatremia; K83.8 Other specified diseases of biliary tract; E27.8 Other specified disorders of adrenal gland; E11.9 Type 2 diabetes mellitus without complications; I10 Essential (primary) hypertension; F32.9 Major depressive disorder, single episode, unspecified; K52.9 Noninfective gastroenteritis and colitis, unspecified; E78.5 Hyperlipidemia, unspecified; E86.1 Hypovolemia; K22.4 Dyskinesia of esophagus; K22.89 Other specified disease of esophagus; D64.9 Anemia, unspecified; K59.09 Other constipation; E87.6 Hypokalemia; E86.0 Dehydration; E83.42 Hypomagnesemia; Z79.84 Long term (current) use of oral hypoglycemic drugs; Z79.899 Other long term (current) drug therapy; Z86.0100 Personal history of colon polyps, unspecified; Z90.49 Acquired absence of other specified parts of digestive tract; Z68.25 Body mass index [BMI] 25.0-25.9, adult
CPT/HCPCS: 36415; 70470; 74177; 74240; 80048; 80053; 81001; 82150; 82533; 83036; 83605; 83690; 83735; 84100; 84132; 84443; 85025; 85610; 85730; 87324; 93005; 96365; 96366; 96368; 96372; 96375; 99285

== ENCOUNTER → 2024-06-09 | Outpatient (CLI) | payer MEDICARE ==
--- NOTE | 2024-06-09 14:25 | CT ---
EXAMINATION TYPE: CT brain wo con DATE OF EXAM: 06/09/2024 COMPARISON: 05/05/2024 CLINICAL INDICATION: Female, 69 years old with history of R41.0 DISORIENTATION, UNSPECIFIED; PHH, EVELIN QUENT DISORIENTATION AND CONFUSION CT DLP: 1040.70 mGycm Automated exposure control for dose reduction was used. Findings: The ventricles, basal cisterns and sulci over the convexities are moderately enlarged. There is no ma ss effect or shift of the midline structures. There is no acute intra or extra-axial hemorrhage. The posterior fossa including the brainstem, fourth ventricle and cerebellar pontine angles appear no rmal. Intraorbital contents appear normal and symmetric. Visualized paranasal sinuses and mastoid air cells are well aerated. The calvarium is intact. IMPRESSION: 1. No acute bleed or mass effect. 2. Mild age-appropriate atrophy. 3. No significant interval change. [facility], , 06/09/2024 2:23 PM
== END | disposition home or self-care (01) ==
LOC: RADCTMAIN 13:31
PROVIDERS: ATTEND Nurse Practitioner Adult Health
DX: G31.1 Senile degeneration of brain, not elsewhere classified (principal); R41.0 Disorientation, unspecified
CPT/HCPCS: 70450